=== PATIENT | male | born 1945 | race Caucasian/White ===

== ENCOUNTER 2017-12-26 02:16 | Emergency (ER) | payer BC ==
[~2017-12-26] VITALS: Ht 188 cm; Wt 145.0 kg
[2017-12-26 02:17] VITALS: BP 164/83; PULSE 69; RESP 16; TEMP 97.5; O2SAT 95
[2017-12-26] MEDS ORDERED: MORPHINE SULFATE 8 MG/ML INJ IV PUSH ONE (03:00)
[2017-12-26] MEDS: LORazepam 2 MG/ML VIAL IM ONE ×2 (03:00→03:14)
--- NOTE | 2017-12-26 03:10 | PD ---
HPI Chief Complaint: Back/ Neck Pain or Injury Time Seen by Provider: 02:25 Travel History International Travel<30 days: No Contact w/Intl Traveler<30days: No Traveled to known affect area: No History of Present Illness HPI 72-year-old white male presents to emergency Department with complaints of left lower back pain since earlier this afternoon. He states that he had no trauma. He gets back pain when he typically plays golf but it does improve with rest. Patient states the pain is moderate but can be more severe with movement. He has some radiation from his left flank into his buttocks. He got into the hot tub earlier today with some temporary improvement. He denies any fever or chills. No nausea vomiting. No abdominal pain. No dysuria, frequency or hematuria. PFSH Past Medical History Narrative Medical Chronic A. fib, hypertension, diabetes, enlarged prostate Atrial Fibrillation: Yes High Cholesterol: Yes Diabetes: Yes Patient Takes Glucophage: Yes Hypertension: Yes Tetanus Vaccination: < 5 Years Past Surgical History Narrative Surgical Bilateral total knees, right knee revision Joint Replacement: Yes (BILAT KNEES) Social History Alcohol Use: No Tobacco Use: No Substance Use: No Allergies-Medications (Allergen,Severity, Reaction): Coded Allergies: No Known Allergies (Unverified , 12/26/17) Reported Meds & Prescriptions Reported Meds & Active Scripts Active Flexeril (Cyclobenzaprine HCl) 10 Mg Tab 10 Mg PO TID [place] (Hydrocodone-Acetaminophen) 5 Mg-325 Mg Tab 1 Tab PO Q4H PRN Review of Systems General / Constitutional: No: Fever Eyes: No: Visual changes HENT: No: Headaches Cardiovascular: No: Chest Pain or Discomfort Respiratory: No: Shortness of Breath Gastrointestinal: No: Abdominal Pain Genitourinary: No: Dysuria Musculoskeletal: Positive: Arthralgias, Limited ROM, Cramping, Pain Skin: No Rash Neurologic: No: Weakness Psychiatric: No: Depression Endocrine: No: Polydipsia Hematologic/Lymphatic: No: Easy Bruising Physical Exam Narrative GENERAL: Well-developed, well-nourished in no apparent distress. Nontoxic appearing. HEAD: Normocephalic, atraumatic. EYES: Pupils equal round and reactive. Extraocular motions intact. No scleral icterus. No injection or drainage. ENT: Nose clear. Throat without erythema, tonsillar hypertrophy or exudate. Uvula midline. Airway patent. NECK: Trachea midline. Supple, nontender, moves head freely. No central bony tenderness or spasm. CARDIOVASCULAR: Regular rate and rhythm without murmurs, gallops, or rubs. RESPIRATORY: Clear to auscultation. Breath sounds equal bilaterally. No wheezes , rales, or rhonchi. GASTROINTESTINAL: Abdomen soft, obese, non-tender,.. No hepato-splenomegaly, or palpable masses. No guarding. EXTREMITIES: No clubbing, cyanosis, or edema. No joint tenderness. BACK: Nontender without deformity. No flank tenderness. Patient has tenderness to the left flank. Worse with bending and movement. No gross spasm. He has intact sensation with good distal pulses. No saddle anesthesia. Moves slowly due to pain. NEUROLOGICAL: Awake, alert and oriented x 3 .Cranial nerves grossly intact. Motor and sensory grossly within normal limits. Normal speech. Data Data Last Documented VS Vital Signs Date Time Temp Pulse Resp B/P (MAP) Pulse Ox O2 Delivery O2 Flow Rate FiO2 12/26/17 02:17 97.5 69 16 164/83 (110) 95 Room Air Orders Orders Spine, Lumbar - Ltd (Ap & Lat) (12/26/17 02:46) Morphine Inj (Morphine Inj) (12/26/17 03:00) Lorazepam Inj (Ativan Inj) (12/26/17 03:00) [facility] Medical Decision Making Medical Screen Exam Complete: Yes Emergency Medical Condition: Yes Medical Record Reviewed: Yes Interpretation(s) Lumbar spine: Patient has significant advanced arthritic changes with disc dehydration . No acute fracture. Arthritic subluxation. This is chronic in nature. Differential Diagnosis MDM: High Differential diagnoses: AAA,Fracture, sprain, strain, HNP, nerve or vascular injury, epidural abscess, pilonidal cyst, pyelonephritis, UTI, nephrolithiasis, ureterolithiasis Narrative Course Patient is given morphine 8 mg IM and 1 mg of Ativan IM. This is acute back pain, degenerative disc disease Diagnosis Primary Impression: Acute back pain Qualified Codes: M54.5 - Low back pain Additional Impression: Degenerative disc disease, lumbar Patient Instructions: Narcotic given in the ED, General Instructions Additional Instructions: Rest. Ice for the next 3 days followed by heat . Flexeril and hydrocodone. Follow-up with a primary care doctor in 3-5 days. Return to the ER for emergencies. Med/Other Pt SpecificInfo: Prescription(s) given Scripts Cyclobenzaprine (Flexeril) 10 Mg Tab 10 MG PO TID for Muscle Spasm, #30 TAB 0 Refills Prov: Naty Cooley MD 12/26/17 Hydrocodone-Acetaminophen ([place]) 5 Mg-325 Mg Tab 1 TAB PO Q4H Y for PAIN, #20 TAB 0 Refills Prov: Naty Cooley MD 12/26/17 Disposition: 01 DISCHARGE HOME Condition: Lucio Arambula Dec 26, 2017 03:09
[2017-12-26] MEDS ORDERED: CYCL10TA PO (03:11)
[2017-12-26] MEDS ORDERED: NORC5TAB PO (03:11)
--- NOTE | 2017-12-26 03:13 | RADRPT ---
EXAM DATE/TIME: 12/26/2017 03:01 [facility] COMPARISON: No previous studies available for comparison. INDICATIONS : Back pain, in lower portion of back no known injury. MEDICAL HISTORY : None. SURGICAL HISTORY : None. ENCOUNTER: Initial ACUITY: 1 day PAIN SCORE: 7/10 LOCATION: Bilateral back FINDINGS: There is a minimal grade 1 anterolisthesis of L4 on L5 and minimal retrolisthesis of L2 on L3 on L4. These are degenerative in nature and associated with severe facet arthropathy. No acute fracture. No bony destructive change. CONCLUSION: 1. Advanced degenerative disc disease and facet arthropathy as above. No acute fracture. Lucio Driscoll MD on December 26, 2017 at 3:09 Board Certified Radiologist. This report was verified electronically.
== END 2017-12-26 04:06 | disposition home or self-care (01) ==
LOC: NEPD 02:16
DX: M54.5 Low back pain (principal); M51.36 Other intervertebral disc degeneration, lumbar region; E11.9 Type 2 diabetes mellitus without complications; I10 Essential (primary) hypertension; I48.2 Chronic atrial fibrillation; E78.00 Pure hypercholesterolemia, unspecified
CPT/HCPCS: 72100; 96374; 99284; J2270; J2060

== ENCOUNTER 2018-02-24 20:38 | Inpatient (IN) | payer MEDICARE ==
[~2018-02-24] VITALS: Ht 188 cm; Wt 137.2 kg
[~2018-02-24 20:38] MED LIST: CYCL10TA PO; NORC5TAB PO
[2018-02-24 21:01] VITALS: BP 176/79; PULSE 147; RESP 18; TEMP 103.3; O2SAT 94
[2018-02-24] MEDS ORDERED: VANCOMYCIN INJ 1,000 MG in SODIUM CHLOR 0.9% 250 ML INJ 250 ML IV STA (21:04)
[2018-02-24] MEDS ORDERED: SODIUM CHLOR 0.9% 1000 ML INJ 1,000 ML IV ONE ×4 (21:04→23:49)
[2018-02-24] MEDS ORDERED: SODIUM CHLOR 0.9% 1000 ML INJ 100 ML IV ONE ×2 (21:04→23:49)
[2018-02-24] MEDS ORDERED: CEFEPIME INJ 2,000 MG in SODIUM CHLORIDE 0.9% INJ 100 ML IV STA (21:04)
--- NOTE | 2018-02-24 21:08 | PD ---
HPI Chief Complaint: Fever Time Seen by Provider: 20:59 Travel History International Travel<30 days: No Contact w/Intl Traveler<30days: No Traveled to known affect area: No History of Present Illness HPI 72-year-old male with history of A. fib, hypertension, diabetes, presents emergency department for evaluation of altered mental status and fever. Patient has no complaints however he is a poor historian. He appears mildly lethargic. His states 2 days ago he began with a back pain and nausea with vomiting. He developed a fever. T-max at home was 140. He has not been acting himself since. Patient has not had a bowel movement in 3 days per his . He has had 2 episodes of hematuria 5 days ago. He has had no cough or chest congestion. There are no other symptoms to report at this time. [facility] Past Medical History Atrial Fibrillation: Yes High Cholesterol: Yes Diabetes: Yes Hypertension: Yes Past Surgical History Joint Replacement: Yes (BILAT KNEES) Social History Alcohol Use: No Tobacco Use: No Substance Use: No Allergies-Medications (Allergen,Severity, Reaction): Coded Allergies: No Known Allergies (Unverified , 12/26/17) Reported Meds & Prescriptions Reported Meds & Active Scripts Active Flexeril (Cyclobenzaprine HCl) 10 Mg Tab 10 Mg PO TID [place] (Hydrocodone-Acetaminophen) 5 Mg-325 Mg Tab 1 Tab PO Q4H PRN Reported Rapaflo (Silodosin) 8 Mg Cap 8 Mg PO DAILY Simvastatin 40 Mg Tab 40 Mg PO HS Amlodipine (Amlodipine Besylate) 2.5 Mg Tab 2.5 Mg PO DAILY Metformin (Metformin HCl) 500 Mg Tab 500 Mg PO BIDPC Vesicare (Solifenacin) 10 Mg Tab 10 Mg PO DAILY Losartan (Losartan Potassium) 50 Mg Tab 50 Mg PO BID Metoprolol Succinate/HCTZ 100-12.5 ER 100 Mg-12.5 Mg Tab 1 Tab PO DAILY Warfarin 10 Mg Tab 10 Mg PO DAILY Review of Systems ROS Limitations: Poor Historian Except as stated in HPI: all other systems reviewed are Neg Physical Exam Narrative GENERAL: Well-nourished male patient, lying in bed, appears in no acute distress. SKIN: Focused skin assessment warm/dry. HEAD: Atraumatic. Normocephalic. EYES: Pupils equal and round. No scleral icterus. No injection or drainage. ENT: No nasal bleeding or discharge. Mucous membranes pink and moist. NECK: Trachea midline. No JVD. CARDIOVASCULAR: Tachycardic rate RESPIRATORY: No accessory muscle use. Shallow respirations, diminished bilateral bases otherwise clear to auscultation. Breath sounds equal bilaterally. GASTROINTESTINAL: Abdomen rotund soft, non-tender, nondistended. Hepatic and splenic margins not palpable. MUSCULOSKELETAL: No obvious deformities. No clubbing. No cyanosis. No edema. NEUROLOGICAL: Lethargic but arousable to awake. No obvious cranial nerve deficits. Motor grossly within normal limits. Normal speech. PSYCHIATRIC: Appropriate mood and affect; insight and judgment normal. Data Data Last Documented VS Vital Signs Date Time Temp Pulse Resp B/P (MAP) Pulse Ox O2 Delivery O2 Flow Rate FiO2 02/24/18 21:12 95 Partial Rebreather 15.00 02/24/18 21:12 22 02/24/18 21:05 147 02/24/18 21:01 103.3 176/79 (111) Orders Orders Sepsis Workup Initiated (02/24/18 ) Electrocardiogram (02/24/18 21:04) Complete Blood Count With Diff (02/24/18 21:04) Comprehensive Metabolic Panel (02/24/18 21:04) Prothrombin Time / Inr (Pt) (02/24/18 21:04) Act Partial Throm Time (Ptt) (02/24/18 21:04) Lactic Acid Sepsis Protocol (02/24/18 21:04) Urinalysis - C+S If Indicated (02/24/18 21:04) Influenzae A/B Antigen (02/24/18 21:04) Blood Culture (02/24/18 21:04) Chest, Single Ap (02/24/18 21:04) Blood Glucose (02/24/18 21:04) Ecg Monitoring (02/24/18 21:04) Iv Access Insert/Monitor (02/24/18 21:04) Oximetry (02/24/18 21:04) Oxygen Administration (02/24/18 21:04) Vancomycin Inj (Vancomycin Inj) (02/24/18 21:04) Cefepime Inj (Maxipime Inj) (02/24/18 21:04) Sodium Chlor 0.9% 1000 Ml Inj (Ns 1000 M (02/24/18 21:04) Sodium Chlor 0.9% 1000 Ml Inj (Ns 1000 M (02/24/18 21:04) Sodium Chlor 0.9% 1000 Ml Inj (Ns 1000 M (02/24/18 21:04) Acetaminophen Supp (Tylenol Supp) (02/24/18 21:15) Acetaminophen 1000 Mg/100 Ml (Ofirmev 10 (02/24/18 21:15) Insert Temp Sensing [place] Cath (02/24/18 21:48) Ct Abd/Pel W/O Iv Contrast (02/24/18 ) Ct Thorax/ Chest Wo Iv Contras (02/24/18 ) Metoprolol Tartrate Inj (Lopressor Inj) (02/24/18 22:45) Labs Laboratory Tests Test 02/24/18 21:05 White Blood Count 11.1 TH/MM3 Red Blood Count 5.12 MIL/MM3 Hemoglobin 14.4 GM/DL Hematocrit 43.8 % Mean Corpuscular Volume 85.6 FL Mean Corpuscular Hemoglobin 28.2 PG Mean Corpuscular Hemoglobin Concent 32.9 % Red Cell Distribution Width 14.7 % Platelet Count 151 TH/MM3 Mean Platelet Volume 10.6 FL Neutrophils (%) (Auto) 93.8 % Lymphocytes (%) (Auto) 2.2 % Monocytes (%) (Auto) 3.9 % Eosinophils (%) (Auto) 0.0 % Basophils (%) (Auto) 0.1 % Neutrophils # (Auto) 10.4 TH/MM3 Lymphocytes # (Auto) 0.2 TH/MM3 Monocytes # (Auto) 0.4 TH/MM3 Eosinophils # (Auto) 0.0 TH/MM3 Basophils # (Auto) 0.0 TH/MM3 CBC Comment DIFF FINAL Differential Comment Prothrombin Time 42.8 SEC Prothromb Time International Ratio 4.3 RATIO Activated Partial Thromboplast Time 45.5 SEC Urine Color YELLOW Urine Turbidity HAZY Urine pH 5.5 Urine Specific [place] 1.027 Urine Protein 30 mg/dL Urine Glucose (UA) NEG mg/dL Urine Ketones NEG mg/dL Urine Occult Blood TRACE Urine Nitrite NEG Urine Bilirubin NEG Urine Urobilinogen LESS THAN 2.0 MG/DL Urine Leukocyte Esterase NEG Urine RBC 6 /hpf Urine WBC 1 /hpf Urine Hyaline Casts 3 /lpf Urine Mucus FEW /lpf Microscopic Urinalysis Comment CATH-CULT NOT IND Blood Urea Nitrogen 35 MG/DL Creatinine 2.84 MG/DL Random Glucose 203 MG/DL Total Protein 7.2 GM/DL Albumin 2.9 GM/DL Calcium Level 8.4 MG/DL Alkaline Phosphatase 63 U/L Aspartate Amino Transf (AST/SGOT) 23 U/L Alanine Aminotransferase (ALT/SGPT) 24 U/L Total Bilirubin 1.1 MG/DL Sodium Level 140 MEQ/L Potassium Level 3.7 MEQ/L Chloride Level 105 MEQ/L Carbon Dioxide Level 27.2 MEQ/L Anion Gap 8 MEQ/L Estimat Glomerular Filtration Rate 22 ML/MIN Lactic Acid Level 2.7 mmol/L [facility] Medical Decision Making Medical Screen Exam Complete: Yes Emergency Medical Condition: Yes Medical Record Reviewed: Yes Differential Diagnosis Sepsis versus UTI versus pneumonia versus colitis versus bacteremia Narrative Course 72-year-old male presents emergency department for evaluation. Patient appears to not feel well but without distress. He is tachycardic and febrile. He has rotund abdomen but this is soft and nontender. Sepsis protocol was initiated. Patient is given cefepime and Zosyn. Laboratory Tests Test 02/24/18 21:05 White Blood Count 11.1 TH/MM3 Red Blood Count 5.12 MIL/MM3 Hemoglobin 14.4 GM/DL Hematocrit 43.8 % Mean Corpuscular Volume 85.6 FL Mean Corpuscular Hemoglobin 28.2 PG Mean Corpuscular Hemoglobin Concent 32.9 % Red Cell Distribution Width 14.7 % Platelet Count 151 TH/MM3 Mean Platelet Volume 10.6 FL Neutrophils (%) (Auto) 93.8 % Lymphocytes (%) (Auto) 2.2 % Monocytes (%) (Auto) 3.9 % Eosinophils (%) (Auto) 0.0 % Basophils (%) (Auto) 0.1 % Neutrophils # (Auto) 10.4 TH/MM3 Lymphocytes # (Auto) 0.2 TH/MM3 Monocytes # (Auto) 0.4 TH/MM3 Eosinophils # (Auto) 0.0 TH/MM3 Basophils # (Auto) 0.0 TH/MM3 CBC Comment DIFF FINAL Differential Comment Prothrombin Time 42.8 SEC Prothromb Time International Ratio 4.3 RATIO Activated Partial Thromboplast Time 45.5 SEC Urine Color YELLOW Urine Turbidity HAZY Urine pH 5.5 Urine Specific [place] 1.027 Urine Protein 30 mg/dL Urine Glucose (UA) NEG mg/dL Urine Ketones NEG mg/dL Urine Occult Blood TRACE Urine Nitrite NEG Urine Bilirubin NEG Urine Urobilinogen LESS THAN 2.0 MG/DL Urine Leukocyte Esterase NEG Urine RBC 6 /hpf Urine WBC 1 /hpf Urine Hyaline Casts 3 /lpf Urine Mucus FEW /lpf Microscopic Urinalysis Comment CATH-CULT NOT IND Blood Urea Nitrogen 35 MG/DL Creatinine 2.84 MG/DL Random Glucose 203 MG/DL Total Protein 7.2 GM/DL Albumin 2.9 GM/DL Calcium Level 8.4 MG/DL Alkaline Phosphatase 63 U/L Aspartate Amino Transf (AST/SGOT) 23 U/L Alanine Aminotransferase (ALT/SGPT) 24 U/L Total Bilirubin 1.1 MG/DL Sodium Level 140 MEQ/L Potassium Level 3.7 MEQ/L Chloride Level 105 MEQ/L Carbon Dioxide Level 27.2 MEQ/L Anion Gap 8 MEQ/L Estimat Glomerular Filtration Rate 22 ML/MIN Lactic Acid Level 2.7 mmol/L CBC is without acute concern. CMP is with a BUN of 35, creatinine 2.4 and GFR 22. Lactic acid 2.7. Influenza is negative. CT imaging is changed to without IV contrast due to renal function. Patient signed out to my attending physician who will follow up on scans and disposition appropriately. Sepsis Criteria SIRS Criteria (2 or more): Temp > 100.9 or < 96.8, Heart rate over 90 Condition: Stable Connie Randall Feb 24, 2018 21:08
[2018-02-24 21:12] VITALS: RESP 22; O2SAT 95
[2018-02-24] MEDS ORDERED: ACETAMINOPHEN 650 MG SUPP RECTAL ONE (21:15)
[2018-02-24] MEDS ORDERED: ACETAMINOPHEN 1000 MG/100 ML 65 ML IV ONE (21:15)
[2018-02-24] MEDS ORDERED: SIMV40TA PO (21:17)
[2018-02-24] MEDS ORDERED: AMLO2.5T PO (21:17)
[2018-02-24] MEDS ORDERED: VESI10TA2 PO (21:17)
[2018-02-24] MEDS ORDERED: LOSA50TA PO (21:17)
[2018-02-24] MEDS ORDERED: METF500T PO (21:17)
[2018-02-24] MEDS ORDERED: RAPA8CAP PO (21:17)
[2018-02-24] MEDS ORDERED: WARF-22 PO (21:17)
[2018-02-24] MEDS ORDERED: METO-489 PO (21:17)
[2018-02-24 21:54] LABS: AUTOMATED NEUTROPHIL # 10.4 TH/MM3 (1.8-7.7); BASOPHIL % 0.1 % (0.0-2.0); HEMATOCRIT 43.8 % (39.0-51.0); HEMOGLOBIN 14.4 GM/DL (13.0-17.0); LYMPH % 2.2 % (9.0-44.0); LYMPHOCYTE # 0.2 TH/MM3 (1.0-4.8); MEAN CELL VOLUME 85.6 FL (80.0-100.0); MEAN CORPUSCULAR HEMOGLOBIN 28.2 PG (27.0-34.0); MEAN CORPUSCULAR HGB CONC 32.9 % (32.0-36.0); MEAN PLATELET VOLUME 10.6 FL (7.0-11.0); MONO % 3.9 % (0.0-8.0); MONOCYTE # 0.4 TH/MM3 (0-0.9); NEUT % 93.8 % (16.0-70.0); PLATELET COUNT 151 TH/MM3 (150-450); RED BLOOD COUNT 5.12 MIL/MM3 (4.50-5.90); RED CELL DISTRIBUTION WIDTH 14.7 % (11.6-17.2); WHITE BLOOD COUNT 11.1 TH/MM3 (4.0-11.0)
[2018-02-24 22:04] LABS: BILIRUBIN, URINE NEG (NEG); BLOOD, URINE TRACE (NEG); GLUCOSE,URINE NEG (NEG); HYALINE CAST, URINE 3 /lpf (RARE); KETONE, URINE NEG (NEG); MUCUS URINE FEW /lpf (OCC); NITRITE,URINE NEG (NEG); PH, URINE 5.5 (5.0-8.5); URINE COLOR YELLOW (YELLW/STRAW); URINE LEUKOCYTE ESTERASE NEG (NEG)
--- NOTE | 2018-02-24 22:07 | RADRPT ---
EXAM DATE/TIME: 02/24/2018 21:44 [facility] COMPARISON: No previous studies available for comparison. INDICATIONS : Shortness of breath. MEDICAL HISTORY : None. SURGICAL HISTORY : None. ENCOUNTER: Initial ACUITY: 1 day PAIN SCORE: 0/10 LOCATION: Bilateral chest FINDINGS: The heart size is enlarged. Lungs are grossly clear. Significant effusions are not seen. The patient is rotated towards the right. CONCLUSION: Cardiomegaly. Ajit Booker MD on February 24, 2018 at 22:04 Board Certified Radiologist. This report was verified electronically.
[2018-02-24 22:15] LABS: ALBUMIN 2.9 GM/DL (3.4-5.0); AST (GOT) 23 U/L (15-37); BICARBONATE 27.2 MEQ/L (21.0-32.0); BLOOD UREA NITROGEN 35 MG/DL (7-18); CALCIUM 8.4 MG/DL (8.5-10.1); CHLORIDE 105 MEQ/L (98-107); CREATININE 2.84 MG/DL (0.60-1.30); GLOMERULAR FILTRATION RATE 22 ML/MIN (>89); GLUCOSE,RANDOM 203 MG/DL (74-106); SODIUM (NA) 140 MEQ/L (136-145)
[2018-02-24 22:16] LABS: ALT (GPT) 24 U/L (12-78)
[2018-02-24 22:18] LABS: LACTIC ACID SEPSIS PROTOCOL 2.7 mmol/L (0.4-2.0)
[2018-02-24 22:19] LABS: ALKALINE PHOSPHATASE 63 U/L (45-117); TOTAL BILIRUBIN ADULT 1.1 MG/DL (0.2-1.0); TOTAL PROTEIN 7.2 GM/DL (6.4-8.2)
[2018-02-24 22:21] LABS: INTERNATIONAL NORMALIZED RATIO 4.3 RATIO; PROTHROMBIN TIME - PATIENT 42.8 SEC (9.8-11.6)
[2018-02-24] MEDS ORDERED: METOPROLOL TARTRATE 5 MG/5 ML VIAL IV PUSH ONE (22:45)
--- NOTE | 2018-02-24 23:00 | RADRPT ---
EXAM DATE/TIME: 02/24/2018 22:45 [facility] COMPARISON: No previous studies available for comparison. INDICATIONS : Short of breath. RADIATION DOSE: 13.64 CTDIvol (mGy) ; Combined studies - Thorax/Abdomen/Pelvis MEDICAL HISTORY : Hypertension. Diabetes mellitus type 2. SURGICAL HISTORY : None. ENCOUNTER: Initial ACUITY: 1 day PAIN SCALE: 0/10 LOCATION: chest TECHNIQUE: Volumetric scanning of the chest was performed. Using automated exposure control and adjustment of t he mA and/or kV according to patient size, radiation dose was kept as low as reasonably achievable to obtain optimal diagnostic quality images. DICOM format image data is available electronically for r eview and comparison. Follow-up recommendations for detected pulmonary nodules are based at a minimum on nodule size and pa tient risk factors according to Fleischner Society Guidelines. 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 No visible pneumothorax or significant infiltrate PLEURAE: There is no pleural thickening or pleural effusion. MEDIASTINUM: The heart and great vessels demonstrate no acute abnormality. There is no mediastinal or hilar lymph adenopathy. AXILLAE: Within normal limits. No lymphadenopathy. MUSCULOSKELETAL: Within normal limits for patient age. MISCELLANEOUS: The visualized upper abdominal organs demonstrate no acute abnormality. CONCLUSION: Atelectasis both lung bases. No visible pneumothorax. Large left substernal goiter. Thomas Carter MD on February 24, 2018 at 22:55 Board Certified Radiologist. This report was verified electronically.
--- NOTE | 2018-02-24 23:04 | RADRPT ---
EXAM DATE/TIME: 02/24/2018 22:45 [facility] COMPARISON: No previous studies available for comparison. INDICATIONS : Abdominal pain with nausea. ORAL CONTRAST: No oral contrast ingested. RADIATION DOSE: 13.64 CTDIvol (mGy) ; Combined studies - Thorax/Abdomen/Pelvis MEDICAL HISTORY : Hypertension. Diabetes mellitus type 2. SURGICAL HISTORY : None. ENCOUNTER: Initial ACUITY: 1 day PAIN SCALE: 5/10 LOCATION: abdomen TECHNIQUE: Volumetric scanning of the abdomen and pelvis was performed. Using automated exposure control and ad justment of the mA and/or kV according to patient size, radiation dose was kept as low as reasonably achievable to obtain optimal diagnostic quality images. DICOM format image data is available electro nically for review and comparison. FINDINGS: LOWER LUNGS: Mild atelectasis both lung bases LIVER: Homogeneous density without lesion. There is no dilation of the biliary tree. No calcified gallston es. SPLEEN: Normal size without lesion. PANCREAS: Within normal limits. KIDNEYS: There multiple cysts or a both kidneys. There is hydronephrosis of the right kidney with some perinep hric stranding. There is a 6 x 4 mm calcification the proximal right ureter. Its at the level of L3-4 disc space. ADRENAL GLANDS: Within normal limits. VASCULAR: There is no aortic aneurysm. BOWEL/MESENTERY: The stomach, small bowel, and colon demonstrate no acute abnormality. There is no free intraperitone al air or fluid. ABDOMINAL WALL: Within normal limits. RETROPERITONEUM: There is no lymphadenopathy. BLADDER: No wall thickening or mass. REPRODUCTIVE: Within normal limits. INGUINAL: There is no lymphadenopathy or hernia. MUSCULOSKELETAL: Within normal limits for patient age. CONCLUSION: Mild hydronephrosis of the right kidney with a 4 x 6 mm proximal ureteral stone. Multiple cysts throu ghout both kidneys. Thomas Carter MD on February 24, 2018 at 23:01 Board Certified Radiologist. This report was verified electronically.
[2018-02-24] MEDS ORDERED: DILTIAZEM HCL 25 MG/5 ML VIAL IV ONE (23:45)
[2018-02-24 23:47] VITALS: BP 151/70; PULSE 138; RESP 18; O2SAT 94
--- NOTE | 2018-02-24 23:49 | HHI.HP ---
[facility] Service Critical Care Medicine Primary Care Physician Tiarra Garcia MD Admission Diagnosis Obstructing stone septic and elevated creatinine Diagnosis: Travel History International Travel<30 Days: No Contact w/Intl Traveler <30 Da: No Traveled to Known Affected Are: No History of Present Illness 72-year-old male with history of A. fib, hypertension, diabetes, presents for evaluation of altered mental status and fever. Patient has no complaints however he is a poor historian. He appears mildly lethargic. His states 2 days ago he began with a back pain and nausea with vomiting. He developed a fever. T-max at home was 140. He has not been acting himself since. Patient has not had a bowel movement in 3 days per his . He has had 2 episodes of hematuria 5 days ago. He has had no cough or chest congestion. There are no other symptoms to report at this time. Review of Systems ROS Limitations: Altered Mental Status, Poor Historian Past Family Social History Allergies: Coded Allergies: No Known Allergies (Unverified , 12/26/17) Past Medical History Atrial Fibrillation: Yes High Cholesterol: Yes Diabetes: Yes Hypertension: Yes Past Surgical History Joint Replacement: Yes (BILAT KNEES) Reported Medications Reported Meds & Active Scripts Active Flexeril (Cyclobenzaprine HCl) 10 Mg Tab 10 Mg PO TID [place] (Hydrocodone-Acetaminophen) 5 Mg-325 Mg Tab 1 Tab PO Q4H PRN Reported Rapaflo (Silodosin) 8 Mg Cap 8 Mg PO DAILY Simvastatin 40 Mg Tab 40 Mg PO HS Amlodipine (Amlodipine Besylate) 2.5 Mg Tab 2.5 Mg PO DAILY Metformin (Metformin HCl) 500 Mg Tab 500 Mg PO BIDPC Vesicare (Solifenacin) 10 Mg Tab 10 Mg PO DAILY Losartan (Losartan Potassium) 50 Mg Tab 50 Mg PO BID Metoprolol Succinate/HCTZ 100-12.5 ER 100 Mg-12.5 Mg Tab 1 Tab PO DAILY Warfarin 10 Mg Tab 10 Mg PO DAILY Family History No family history significant of early coronary artery disease or malignancy Social History Alcohol Use: No Tobacco Use: No Substance Use: No Physical Exam Vital Signs Vital Signs Date Time Temp Pulse Resp B/P (MAP) Pulse Ox O2 Delivery O2 Flow Rate FiO2 02/24/18 23:47 138 18 151/70 (97) 94 Partial Rebreather 15.00 02/24/18 21:12 95 Partial Rebreather 15.00 02/24/18 21:12 22 95 Partial Rebreather 15.00 02/24/18 21:05 147 22 92 Nasal Cannula 2.00 02/24/18 21:01 103.3 147 18 176/79 (111) 94 Physical Exam GENERAL: Elderly gentleman in moderate distress SKIN: Warm and dry. HEAD: Normocephalic. EYES: No scleral icterus. No injection or drainage. NECK: Supple, trachea midline. No JVD or lymphadenopathy. CARDIOVASCULAR: Regular rate and rhythm without murmurs, gallops, or rubs. RESPIRATORY: Breath sounds equal bilaterally. No accessory muscle use. GASTROINTESTINAL: Abdomen soft, non-tender, nondistended. MUSCULOSKELETAL: No cyanosis, or edema. BACK: Nontender without obvious deformity. NEURO EXAM: GCS:14 Mental Status: The patient is alert and oriented to person, place, with normal speech. Cranial Nerves: Visual acuity intact bilaterally. Visual gagnon normal in all quadrants. Pupils are round, reactive to light. Extraocular movements are intact without ptosis. Hearing is normal bilaterally. Voice is normal. Tongue protrudes midline and moves symmetrically. Reflexes: Biceps, patellar, and Achilles are 2/4 bilaterally. No clonus. Laboratory Laboratory Tests Test 02/24/18 21:05 White Blood Count 11.1 Red Blood Count 5.12 Hemoglobin 14.4 Hematocrit 43.8 Mean Corpuscular Volume 85.6 Mean Corpuscular Hemoglobin 28.2 Mean Corpuscular Hemoglobin Concent 32.9 Red Cell Distribution Width 14.7 Platelet Count 151 Mean Platelet Volume 10.6 Neutrophils (%) (Auto) 93.8 Lymphocytes (%) (Auto) 2.2 Monocytes (%) (Auto) 3.9 Eosinophils (%) (Auto) 0.0 Basophils (%) (Auto) 0.1 Neutrophils # (Auto) 10.4 Lymphocytes # (Auto) 0.2 Monocytes # (Auto) 0.4 Eosinophils # (Auto) 0.0 Basophils # (Auto) 0.0 CBC Comment DIFF FINAL Differential Comment Prothrombin Time 42.8 Prothromb Time International Ratio 4.3 Activated Partial Thromboplast Time 45.5 Urine Color YELLOW Urine Turbidity HAZY Urine pH 5.5 Urine Specific [place] 1.027 Urine Protein 30 Urine Glucose (UA) NEG Urine Ketones NEG Urine Occult Blood TRACE Urine Nitrite NEG Urine Bilirubin NEG Urine Urobilinogen LESS THAN 2.0 Urine Leukocyte Esterase NEG Urine RBC 6 Urine WBC 1 Urine Hyaline Casts 3 Urine Mucus FEW Microscopic Urinalysis Comment CATH-CULT NOT IND Blood Urea Nitrogen 35 Creatinine 2.84 Random Glucose 203 Total Protein 7.2 Albumin 2.9 Calcium Level 8.4 Alkaline Phosphatase 63 Aspartate Amino Transf (AST/SGOT) 23 Alanine Aminotransferase (ALT/SGPT) 24 Total Bilirubin 1.1 Sodium Level 140 Potassium Level 3.7 Chloride Level 105 Carbon Dioxide Level 27.2 Anion Gap 8 Estimat Glomerular Filtration Rate 22 Lactic Acid Level 2.7 Date/Time Source Procedure Growth Status 02/24/18 21:00 Blood Peripheral Aerobic Blood Culture Pending Received 02/24/18 21:00 Blood Peripheral Anaerobic Blood Culture Pending Received 02/24/18 21:05 Nasal Washing Influenza Types A,B Antigen (JAIMIE) - Final NEGATIVE FOR FLU A AND B ANTIGEN.... Complete Result Diagram: 02/24/18210402/24/182104 Imaging Last 24 hours Impressions Chest X-Ray 02/24/182103 Signed Impressions: Service Date/Time: Saturday, February 24, 2018 21:44 - CONCLUSION: Cardiomegaly. Ajit Booker MD Capskylar VTE Risk Assessment Caprini VTE Risk Assessment: Mod/High Risk (score >= 2) Caprini Risk Assessment Model Point Value = 1 Point Value = 2 Point Value = 3 Point Value = 5 Age 41-60 Minor surgery BMI > 25 kg/m2 Swollen legs Varicose veins or History of unexplained or recurrent spontaneous Oral contraceptives or hormone replacement Sepsis (< 1 month) Serious lung disease, including pneumonia (< 1 month) Abnormal pulmonary function Acute myocardial infarction Congestive heart failure (< 1 month) History of inflammatory bowel disease Medical patient at bed rest Age 61-74 Arthroscopic surgery Major open surgery (> 45 min) Laparoscopic surgery (> 45 min) Malignancy Confined to bed (> 72 hours) Immobilizing plaster cast Central venous access Age >= 75 History of VTE Family history of VTE Factor V Leiden Prothrombin [id number] Lupus anticoagulant Anticardiolipin antibodies Elevated serum homocysteine Heparin-induced thrombocytopenia Other congenital or acquired thrombophilia Stroke (< 1 month) Elective arthroplasty Hip, pelvis, or leg fracture Acute spinal cord injury (< 1 month) Prophylaxis Regimen Total Risk Factor Score Risk Level Prophylaxis Regimen 0-1 Low Early ambulation 2 Moderate Order ONE of the following: *Sequential Compression Device (SCD) *Heparin 5000 units SQ BID 3-4 Higher Order ONE of the following medications: *Heparin 5000 units SQ TID *Enoxaparin/Lovenox 40 mg SQ daily (WT < 150 kg, CrCl > 30 mL/min) *Enoxaparin/Lovenox 30 mg SQ daily (WT < 150 kg, CrCl > 10-29 mL/min) *Enoxaparin/Lovenox 30 mg SQ BID (WT < 150 kg, CrCl > 30 mL/min) AND/OR *Sequential Compression Device (SCD) 5 or more Highest Order ONE of the following medications: *Heparin 5000 units SQ TID (Preferred with Epidurals) *Enoxaparin/Lovenox 40 mg SQ daily (WT < 150 kg, CrCl > 30 mL/min) *Enoxaparin/Lovenox 30 mg SQ daily (WT < 150 kg, CrCl > 10-29 mL/min) *Enoxaparin/Lovenox 30 mg SQ BID (WT < 150 kg, CrCl > 30 mL/min) AND *Sequential Compression Device (SCD) Assessment and Plan Assessment and Plan Obstructive hydronephrosis -Aggressive IV fluid hydration -Urology consultation -Broad-spectrum antibiotic -Blood culture and urine culture Urosepsis -Admit to ICU -Vancomycin and cefepime empirically -Follow-up and de-escalate per culture sensitivity Diabetes mellitus -Hold metformin while in the ICU -Insulin sliding Acute kidney injury -Due to above -Aggressive IV fluid hydration -Strict I's and O -Monitor creatinine and electrolyte Atrial fibrillation -Hold beta-nina due to septic shock -Hold Coumadin for urological procedure -Resume when okay with surgeon DVT GI prophylaxis -Augie's and SCDs -Pharmacological DVT prophylaxis based on PT/INR -Pepcid Critical Care: The total critical care time was 35 minutes. Time to perform other separately billable procedures was not included in the critical care time. Julio Nation MD Feb 24, 2018 23:49
[2018-02-24 23:58] VITALS: BP 110/64; PULSE 140; RESP 26; O2SAT 92
[2018-02-25] VITALS (26 sets, daily range): BP systolic 87–154; BP diastolic 50–84; PULSE 90–156; RESP 16–41; TEMP 97.8–98.9; O2SAT 87–96
[2018-02-25] MEDS ORDERED: CHLORHEXIDINE GLUCONATE 2 % 1 PACK (2 CLOTHS) TOP PRN
[2018-02-25] MEDS ORDERED: ONDANSETRON HCL 4 MG/2 ML VIAL IV PUSH PRN
[2018-02-25] MEDS ORDERED: SENNOSIDES 8.6 MG TAB PO PRN
[2018-02-25] MEDS ORDERED: MISCELLANEOUS NURSING INFORMATION XX SCH
[2018-02-25] MEDS ORDERED: BISACODYL 10 MG SUPP RECTAL PRN
[2018-02-25] MEDS ORDERED: MORPHINE SULFATE 4 MG/ML INJ IV PUSH PRN
[2018-02-25] MEDS ORDERED: Vancomycin Consult Pharmacy 1 EA OTHER SCH
[2018-02-25] MEDS ORDERED: MAGNESIUM HYDROXIDE SUSP 30 ML CUP PO PRN
[2018-02-25] MEDS ORDERED: LACTULOSE SYRUP 20 GM/30 ML CUP PO PRN
[2018-02-25] MEDS ORDERED: RESP: ALBUTEROL 2.5 MG/IPRATROPIUM 0.5 MG NEB (PRN) INH
[2018-02-25] MEDS ORDERED: DEXTROSE 50% IN WATER 50 ML VIAL(D50) IV PUSH PRN (00:30)
[2018-02-25] MEDS ORDERED: METOPROLOL SUCCINATE 25 MG EXTENDED RELEASE TAB PO ONE (00:30)
[2018-02-25] MEDS ORDERED: GLUCAGON 1 MG/ML VIAL OTHER PRN (00:30)
[2018-02-25] MEDS: SODIUM CHLOR 0.9% 1000 ML INJ 1,000 ML IV SCH ×4 (01:03→20:34)
[2018-02-25 03:13] LABS: AUTOMATED NEUTROPHIL # 21.6 TH/MM3 (1.8-7.7); BASOPHIL % 0.1 % (0.0-2.0); HEMOGLOBIN 12.3 GM/DL (13.0-17.0); LYMPH % 2.6 % (9.0-44.0); LYMPHOCYTE # 0.6 TH/MM3 (1.0-4.8); MEAN CELL VOLUME 86.2 FL (80.0-100.0); MEAN CORPUSCULAR HEMOGLOBIN 28.7 PG (27.0-34.0); MEAN CORPUSCULAR HGB CONC 33.3 % (32.0-36.0); MEAN PLATELET VOLUME 10.6 FL (7.0-11.0); MONO % 7.2 % (0.0-8.0); MONOCYTE # 1.7 TH/MM3 (0-0.9); NEUT % 90.1 % (16.0-70.0); PLATELET COUNT 145 TH/MM3 (150-450); RED CELL DISTRIBUTION WIDTH 14.4 % (11.6-17.2)
[2018-02-25 03:27] LABS: INTERNATIONAL NORMALIZED RATIO 4.6 RATIO; PROTHROMBIN TIME - PATIENT 46.1 SEC (9.8-11.6)
[2018-02-25 03:41] LABS: ALBUMIN 2.3 GM/DL (3.4-5.0); BICARBONATE 22.7 MEQ/L (21.0-32.0); CALCIUM 7.2 MG/DL (8.5-10.1); CREATININE 2.51 MG/DL (0.60-1.30); MAGNESIUM 1.7 MG/DL (1.5-2.5); PHOSPHORUS 2.5 MG/DL (2.5-4.9); TOTAL BILIRUBIN ADULT 0.9 MG/DL (0.2-1.0); TOTAL PROTEIN 5.6 GM/DL (6.4-8.2)
[2018-02-25] MEDS: CHLORHEXIDINE GLUCONATE 2 % 1 PACK (2 CLOTHS) TOP SCH (04:00)
[2018-02-25] MEDS: INSULIN ASPART SUPPLEMENTAL SCALE SQ SCH ×4 (08:00→20:38)
[2018-02-25] MEDS: FAMOTIDINE 20 MG/2 ML VIAL IV PUSH SCH ×2 (09:00→20:34)
[2018-02-25] MEDS: CYCLOBENZAPRINE HCL 10 MG TAB PO SCH ×3 (10:28→18:00)
[2018-02-25] MEDS: DOCUSATE SODIUM 50 MG/SENNA 8.6 MG TAB PO SCH ×2 (10:28→20:34)
[2018-02-25] MEDS: CEFEPIME INJ 2,000 MG in SODIUM CHLORIDE 0.9% INJ 100 ML IV SCH ×2 (10:29→20:34)
[2018-02-25] MEDS: SODIUM CHLORIDE 0.9% FLUSH 10 ML FLUSH IV FLUSH SCH ×2 (10:29→20:35)
--- NOTE | 2018-02-25 10:41 | MB ---
cc: Cliff South MD DATE: 02/25/2018 REASON FOR CONSULTATION: Persistent right flank pain and probable obstructing ureteral calculus. HISTORY OF PRESENT ILLNESS: This is a 72-year-old gentleman who for about a week has had flank discomfort at home. Evidently, according to him, his and daughter insisted that he finally come to the emergency room. He was having difficulty with nausea, increased fever, sweating, etc. at home. Urologically, he has a history of bladder carcinoma for which he has been followed closely by an urologist in [place]. He has had no history of stones, however. During the course of the workup here in the emergency room, he had a CAT scan which demonstrated a hydronephrosis proximal to about a 6 mm stone at, near or just below the right ureteropelvic junction. He also has some difficulty with some urgency and frequency for which he takes Rapaflo and VESIcare. Upon discussion with the gentleman, he is sitting upright in his chair at the moment and is comfortable. He has been started on appropriate antibiotics by the medical bill hiker. He is in the medical intensive care unit at the moment. PLAN: To go ahead and: 1. Keep him n.p.o. 2. I have marked his right flank for identification purposes. 3. We will proceed with a cystoscopic exam under anesthesia and insertion of a right double-J stent and then we will take the workup from there. He is due to go back to [place] toward the end of February. MD ZOLTAN Trimble/ANGEL , 10:09 AM , 10:40 AM
[2018-02-25] MEDS ORDERED: ACETAMINOPHEN 1000 MG/100 ML 100 ML IV ONE (11:28)
[2018-02-25] MEDS ORDERED: SUGAMMADEX SODIUM 200 MG/2 ML VIAL IV PUSH ONE (11:52)
[2018-02-25] MEDS ORDERED: GLYCOPYRROLATE 1 MG/5 ML SYRINGE IV PUSH ONE (12:00)
[2018-02-25] MEDS ORDERED: LIDOCAINE HCL 1% PF 5 ML SYRINGE OTHER ONE (12:00)
[2018-02-25] MEDS ORDERED: *RESP: ALBUTEROL 2.5 MG/3 ML NEB (PRN) PERIprocedural Use ONLY NEB ONE (12:00)
[2018-02-25] MEDS ORDERED: ROCURONIUM INJ 50 MG/5 ML SYRINGE IV PUSH ONE (12:00)
[2018-02-25] MEDS ORDERED: NEOSTIGMINE 5 MG/5 ML SYRINGE IV PUSH ONE (12:00)
[2018-02-25] MEDS ORDERED: PHENYLEPHRINE HCL 10 MG/ML VIAL IV ONE (12:00)
[2018-02-25] MEDS ORDERED: PROPOFOL 200 MG/20 ML AMP IV ONE (12:00)
[2018-02-25] MEDS ORDERED: LABETALOL HCL 100 MG/20 ML VIAL IV ONE (12:00)
[2018-02-25] MEDS ORDERED: DEXAMETHASONE SOD PHOS 4 MG/ML VIAL IV ONE (12:00)
[2018-02-25] MEDS ORDERED: ONDANSETRON HCL 4 MG/2 ML VIAL IV ONE (12:00)
[2018-02-25] MEDS ORDERED: DO NOT ADM ANY ANTICOAGULANT DRUGS PRN (12:05)
--- NOTE | 2018-02-25 12:13 | RADRPT ---
EXAM DATE/TIME: 02/25/2018 10:46 [facility] COMPARISON: CT ABDOMEN & PELVIS W/O CONTRAST, February 24, 2018, 22:45. INDICATIONS : Right sided ureteral stent placement. Patient with abdomen pain, mild hydronephrosis and small proxim al ureteral calculus seen on recent CT. MEDICAL HISTORY : None. SURGICAL HISTORY : None. ENCOUNTER: Initial ACUITY: 1 day PAIN SCORE: Non-responsive. LOCATION: Right Abdomen, Ureter FINDINGS: A single cone down view of the right side of the abdomen and pelvis was obtained using a matrix camer a and demonstrates placement of a double pigtail ureteral stent catheter. The lower portion of the st ent catheter was cut off the study. There is apparent visualization of the proximal ureteral calculus along the proximal stent catheter. This measures several millimeters in size. CONCLUSION: Placement of right pigtail stent catheter with the possible ureteral calculus along t he proximal catheter. Van Minor MD on February 25, 2018 at 12:09 Board Certified Radiologist. This report was verified electronically.
--- NOTE | 2018-02-25 12:20 | MP ---
cc: Cliff South MD DATE OF OPERATION: 02/25/2018 PREOPERATIVE DIAGNOSIS: Right ureteropelvic junction calculus with hydronephrosis. POSTOPERATIVE DIAGNOSIS: Right ureteropelvic junction calculus with hydronephrosis. PROCEDURE PERFORMED: Cystoscopy with right retrograde double-J stent placement, 6-Sol[place] Islander x 26 cm, under fluoroscopic control. SURGEON: Akosua Coronado MD ANESTHESIA: General. PROCEDURE IN DETAIL This 72-year-old gentleman is from [place]. He has been wintering over here in [place]. He has been putting up with right flank pain over the course of the week, was brought to the emergency room, noted to be showing signs and symptoms of impending sepsis secondary to an apparent impacted calculus at the right ureteropelvic junction that was about 6 mm. Options were discussed. Urology was consulted. Films were reviewed. The patient was examined and he was felt to be a suitable candidate for the above-mentioned procedure. I personally marked his right flank for identification purposes. He was then already on appropriate antibiotics for impending sepsis. He was brought to the operating room, given a general anesthetic, placed in the dorsal lithotomy position and a timeout taken for identification purposes again. He was then prepped and draped in a sterile fashion. A rigid scope was passed into his bladder. We see a good bit of bullous edema secondary to catheter wear while he has been here in the hospital. He does have a history of bladder carcinoma. I did not see any gross evidence of that, but it could be hiding beneath the bullous edema. In any event, the right ureteral orifice was identified and was not effluxing. A guidewire was placed under fluoroscopic control up into the right renal pelvis and then over this, a 6-[place] Islander x 26 cm double-J stent was advanced until we had good pigtail formation in the right renal pelvis and then a good pigtail formation in the bladder documented fluoroscopically. A Barron catheter was then reinserted. We will probably leave that overnight. He tolerated the procedure well and was returned to the recovery room in stable condition. MD ZOLTAN Trimble/ANGEL , 11:52 AM , 12:18 PM
--- NOTE | 2018-02-25 13:55 | EKG ---
Date Performed: 02/24/2018 Time Performed: 20:53:24 PTAGE: 72 years EKG: ATRIAL FIBRILLATION WITH RAPID VENTRICULAR RESPONSE LOW QRS VOLTAGE IN PRECORDIAL LEADS POS SIBLE ANTERIOR MYOCARDIAL INFARCTION INFERIOR MYOCARDIAL INFARCTION ABNORMAL ECG NO PREVIOUS TRACING DOCTOR: Sander Garcia Interpretating Date/Time 02/25/2018 13:53:18
--- NOTE | 2018-02-25 18:22 | HHI.CCPN ---
Subjective Remarks/Hospital Course Hospital Course: 72-year-old male with history of A. fib, hypertension, diabetes, presents for evaluation of altered mental status and fever. Patient has no complaints however he is a poor historian. He appears mildly lethargic. His states 2 days ago he began with a back pain and nausea with vomiting. He developed a fever. T-max at home was 140. He has not been acting himself since. Patient has not had a bowel movement in 3 days per his . He has had 2 episodes of hematuria 5 days ago. He has had no cough or chest congestion. There are no other symptoms to report at this time. Subjective: 02/25: s/p ureteral stents. blood and urine growing Enterococcus. clinically stabilizing. still remains afib RVR, but HR in the 130s and appears to need this HR for perfusion in sepsis. subjectively, the patient feels better than yesterday and denies complaints. states that he has not taken Flexeril in weeks and asks that we discontinue it. ROS negative. Objective Vital Signs Date Time Temp Pulse Resp B/P (MAP) Pulse Ox O2 Delivery O2 Flow Rate FiO2 02/25/18 17:00 117 38 105/64 (78) 90 02/25/18 16:00 98.9 02/25/18 12:25 Simple Mask 6 02/25/18 05:20 80 Intake and Output 02/25/18 02/25/18 02/25/18 07:59 15:59 23:59 Output Total 300 ml 50 ml Balance -300 ml -50 ml Result Diagram: 02/25/18 0300 02/25/18 0300 Other Results Microbiology Date/Time Source Procedure Growth Status 02/24/18 21:05 Nasal Washing Influenza Types A,B Antigen (JAIMIE) - Final NEGATIVE FOR FLU A AND B ANTIGEN.... Complete Imaging Last 24 hours Impressions Chest X-Ray 02/24/182103 Signed Impressions: Service Date/Time: Saturday, February 24, 2018 21:44 - CONCLUSION: Cardiomegaly. Ajit Booker MD Objective Remarks GENERAL: Elderly gentleman in no acute distress, lying in bed. SKIN: Warm and dry. HEAD: Normocephalic. EYES: No scleral icterus. No injection or drainage. NECK: trachea midline. No JVD CARDIOVASCULAR: tachycardic rate, irregularly irregular rhythm. afib. RESPIRATORY: equal chest rise. No accessory muscle use. unlabored. GASTROINTESTINAL: Abdomen soft, non-tender, nondistended. MUSCULOSKELETAL: No cyanosis, or edema. NEURO EXAM: GCS 15. RASS 0. CAM -. follows commands. no focal deficits. : urosanguinous output, clearing up in mendieta compared to initial bag contents. A/P Assessment and Plan Assessment: 72yM with severe sepsis secondary to obstructive urinary tract infection. Organ failure improving. continue broad spectrum abx and await sensitivities. keep in ICU. allow HR to be higher to maintain adequate cardiac output during sepsis. Obstructive hydronephrosis -Aggressive IV fluid hydration -additional 1L LR bolus now -Urology consultation -Broad-spectrum antibiotic -Blood culture and urine culture Severe sepsis Urinary tract infection -remain in ICU -Vancomycin and cefepime empirically -Follow-up and de-escalate per culture sensitivity Diabetes mellitus -Hold metformin while in the ICU -Insulin sliding scale Acute kidney injury -Due to above -Aggressive IV fluid hydration -Strict I's and O -Monitor creatinine and electrolyte Atrial fibrillation -Hold beta-nina due to septic shock -Hold Coumadin for urological procedure -Resume when okay with surgeon Coagulopathy secondary to coumadin with supratherapeutic INR - secondary to poor renal clearance. - trend coags DVT GI prophylaxis -Augie's and SCDs -Pharmacological DVT prophylaxis based on PT/INR -Thom Grande MD Feb 25, 2018 18:22
[2018-02-25] MEDS ORDERED: LACTATED RINGER'S 1000 ML INJ 1,000 ML IV ONE (18:30)
[2018-02-25] MEDS: PRAVASTATIN SOD 40 MG TAB PO SCH (20:35)
[2018-02-25] MEDS ORDERED: AMIODARONE INJ 150 MG in DEXTROSE 5% IN WATER 100ML INJ 100 ML IV ONE ×2 (22:24)
[2018-02-25] MEDS ORDERED: AMIODARONE INJ 450 MG in DEXTROSE 5% IN WATE(EXCEL) INJ 241 ML IV PRN ×2 (22:34)
[2018-02-25] MEDS ORDERED: AMIODARONE INJ 450 MG in SODIUM CHLOR 0.9% (EXCEL) INJ 241 ML IV PRN (22:45)
[2018-02-26] VITALS (26 sets, daily range): BP systolic 67–148; BP diastolic 47–94; PULSE 117–169; RESP 0–45; TEMP 98–98.7; O2SAT 83–97
[2018-02-26] MEDS: CHLORHEXIDINE GLUCONATE 2 % 1 PACK (2 CLOTHS) TOP SCH (04:00)
[2018-02-26 05:59] LABS: HEMATOCRIT 38.4 % (39.0-51.0); HEMOGLOBIN 12.7 GM/DL (13.0-17.0); MEAN CELL VOLUME 86.8 FL (80.0-100.0); MEAN CORPUSCULAR HEMOGLOBIN 28.7 PG (27.0-34.0); MEAN PLATELET VOLUME 11.2 FL (7.0-11.0); PLATELET COUNT 153 TH/MM3 (150-450); RED BLOOD COUNT 4.43 MIL/MM3 (4.50-5.90); WHITE BLOOD COUNT 14.8 TH/MM3 (4.0-11.0)
[2018-02-26 06:24] LABS: CREATININE 1.65 MG/DL (0.60-1.30)
[2018-02-26 06:27] LABS: RANDOM VANCOMYCIN 2.5 COMMENT
[2018-02-26] MEDS ORDERED: METOPROLOL TARTRATE 5 MG/5 ML VIAL IV PUSH ONE (07:45)
[2018-02-26] MEDS ORDERED: DIGOXIN 0.5 MG/2 ML VIAL IV PUSH ONE (08:00)
[2018-02-26] MEDS ORDERED: FUROSEMIDE 20 MG/2 ML VIAL IV PUSH ONE (08:00)
[2018-02-26] MEDS ORDERED: MAGNESIUM SULFATE 1 GM PREMIX 100 ML IV ONE (08:00)
[2018-02-26] MEDS: INSULIN ASPART SUPPLEMENTAL SCALE SQ SCH ×4 (08:00→21:00)
[2018-02-26] MEDS: SODIUM CHLOR 0.9% 1000 ML INJ 1,000 ML IV SCH (08:02)
--- NOTE | 2018-02-26 08:09 | HHI.CCPN ---
Subjective Remarks/Hospital Course Hospital Course: 72-year-old male with history of A. fib, hypertension, diabetes, presents for evaluation of altered mental status and fever. Patient has no complaints however he is a poor historian. He appears mildly lethargic. His states 2 days ago he began with a back pain and nausea with vomiting. He developed a fever. T-max at home was 104. He has not been acting himself since. Patient has not had a bowel movement in 3 days per his . He has had 2 episodes of hematuria 5 days ago. He has had no cough or chest congestion. There are no other symptoms to report at this time. Subjective: 02/25: s/p ureteral stents. blood and urine growing Enterococcus. clinically stabilizing. still remains afib RVR, but HR in the 130s and appears to need this HR for perfusion in sepsis. subjectively, the patient feels better than yesterday and denies complaints. states that he has not taken Flexeril in weeks and asks that we discontinue it. ROS negative. 02/26: Overnight developed increasing oxygen requirement shortness of breath currently on partial nonrebreather satting 90-91%. Currently in A. fib with RVR on amiodarone infusion heart rate 120-140s. IV Lopressor 2.5 mg push 1, digoxin 0.25 mg IV 1. Chest x-ray stat. Discontinue IV fluids. IV Lasix 40 mg 1. Enterococcus bacteremia. Discontinue cefepime start Unasyn, called the pharmacy to confirm adequate vancomycin dosing Objective Vital Signs Date Time Temp Pulse Resp B/P (MAP) Pulse Ox O2 Delivery O2 Flow Rate FiO2 02/26/18 06:00 120 02/26/18 06:00 98.2 30 111/73 (86) 91 02/25/18 21:12 Simple Mask 10.00 02/25/18 05:20 80 Intake and Output 02/26/18 02/26/18 02/27/18 08:00 16:00 00:00 Intake Total 100 ml Output Total 1000 ml Balance -900 ml Result Diagram: 02/26/18 0450 02/26/18 0450 Other Results Microbiology Date/Time Source Procedure Growth Status 02/24/18 21:05 Nasal Washing Influenza Types A,B Antigen (JAIMIE) - Final NEGATIVE FOR FLU A AND B ANTIGEN.... Complete Imaging Last 24 hours Impressions Chest X-Ray 02/24/182103 Signed Impressions: Service Date/Time: Saturday, February 24, 2018 21:44 - CONCLUSION: Cardiomegaly. Ajit Booker MD Objective Remarks GENERAL: Elderly gentleman in moderate distress appears critical, on partial nonrebreather heart rate in 140s SKIN: Warm and dry. HEAD: Normocephalic. EYES: No scleral icterus. No injection or drainage. NECK: trachea midline. No JVD CARDIOVASCULAR: tachycardic rate, irregularly irregular rhythm. afib. Heart rate varies from 120-140s RESPIRATORY: equal chest rise. Mild accessory muscle use. Few basilar crackles GASTROINTESTINAL: Abdomen soft, non-tender, nondistended. MUSCULOSKELETAL: No cyanosis, or edema. NEURO EXAM: Alert awake oriented, follows commands. no focal deficits. : Urine clearing with less blood. A/P Assessment and Plan Assessment: 72yM with severe sepsis secondary to obstructive urinary tract infection. Blood cultures growing enterococcus. Now with increasing respiratory insufficiency and hypoxia. Currently on partial nonrebreather. Atrial fibrillation with RVR probably contributing to CHF. Discontinue IV fluids, give 40 mg IV Lasix. IV Lopressor 2.5 mg, IV digoxin 0.25 mg. Continue amiodarone infusion. Start BiPAP 12/5 as needed for hypoxia. Now critically ill has taken a turn for the worse over the last 12 hours Acute hypoxemic respiratory failure Atrial fibrillation with RVR Probable diastolic heart failure -Chest x-ray ABG stat -BiPAP 12/5 as needed -IV Lasix 40 mg 1 -Continue amiodarone for A. fib with RVR -IV metoprolol 2.5 mg and IV digoxin 0.25 mg ordered -Additional diureses as clinically indicated Obstructive hydronephrosis -Discontinued IV fluids due to worsening hypoxia -Urology consultation Dr. South. s/p Cystoscopy with right retrograde double-J stent placement,02/25 Severe sepsis Urinary tract infection -remain in ICU -Blood cultures growing enterococcus 3 out of 4 bottles. Called pharmacy to ensure adequate vancomycin dosing -Discontinue cefepime (has no enterococcus coverage). Start Unasyn 1.5 g every 6 hours renally adjusted Diabetes mellitus -Hold metformin while in the ICU -Insulin sliding scale Acute kidney injury -Due to above -DC IV fluid hydration, IV lasix as above -Strict I's and O -Monitor creatinine and electrolyte Coagulopathy secondary to Coumadin with serotherapeutic INR - secondary to poor renal clearance. - trend coags - FFP 1 U for INR of 7 reported by RN (Re check pending) DVT GI prophylaxis -Augie's and SCDs -INR is supratherapeutic -Pepcid CCT 40 MIN due to acute change in condition patient is critical now Donald Fong MD Feb 26, 2018 08:09
[2018-02-26 08:32] LABS: INTERNATIONAL NORMALIZED RATIO 6.6 RATIO
[2018-02-26] MEDS: AMPICILLIN-SULBACTAM INJ 1,500 MG in SODIUM CHLORIDE 0.9% INJ 100 ML IV SCH ×3 (08:42→20:00)
[2018-02-26] MEDS: DOCUSATE SODIUM 50 MG/SENNA 8.6 MG TAB PO SCH ×2 (08:43→21:00)
[2018-02-26] MEDS: FAMOTIDINE 20 MG/2 ML VIAL IV PUSH SCH ×2 (08:44→21:00)
[2018-02-26] MEDS: SODIUM CHLORIDE 0.9% FLUSH 10 ML FLUSH IV FLUSH SCH ×2 (08:44→21:00)
--- NOTE | 2018-02-26 09:04 | RADRPT ---
EXAM DATE/TIME: 02/26/2018 08:31 [facility] COMPARISON: CHEST SINGLE AP, February 24, 2018, 21:44. INDICATIONS : Shortness of breath. MEDICAL HISTORY : Cardiomegaly. SURGICAL HISTORY : None. ENCOUNTER: Subsequent ACUITY: 3 days PAIN SCORE: 0/10 LOCATION: Bilateral chest FINDINGS: A single AP portable erect view of the chest was obtained. The trachea remains deviated to the right by the known large goiter. Patchy opacity remains in the perihilar regions and both lung bases. There is no focal consolidation or effusion. The heart size remains mildly prominent. The bony thorax is i ntact. CONCLUSION: Patchy opacity remains in both lungs with no focal consolidation. Van Minor MD on February 26, 2018 at 9:01 Board Certified Radiologist. This report was verified electronically.
[2018-02-26] MEDS ORDERED: VANCOMYCIN INJ 2,000 MG in SODIUM CHLORID 0.9% 500 ML INJ 500 ML IV ONE (10:00)
[2018-02-26 14:26] LABS: ALBUMIN 2.4 GM/DL (3.4-5.0); ALKALINE PHOSPHATASE 62 U/L (45-117); ALT (GPT) 52 U/L (12-78); AST (GOT) 52 U/L (15-37); BICARBONATE 23.3 MEQ/L (21.0-32.0); BLOOD UREA NITROGEN 29 MG/DL (7-18); CALCIUM 7.9 MG/DL (8.5-10.1); CHLORIDE 115 MEQ/L (98-107); CREATININE 1.59 MG/DL (0.60-1.30); GLOMERULAR FILTRATION RATE 43 ML/MIN (>89); GLUCOSE,RANDOM 157 MG/DL (74-106); SODIUM (NA) 145 MEQ/L (136-145); TOTAL BILIRUBIN ADULT 0.5 MG/DL (0.2-1.0); TOTAL PROTEIN 6.5 GM/DL (6.4-8.2)
[2018-02-26] MEDS: ACETAMINOPHEN 325 MG TAB PO PRN (14:55)
[2018-02-26] MEDS ORDERED: ADENOSINE IV SOLN 3 MG/ML 2 ML VIAL ONE (17:23)
[2018-02-26] MEDS ORDERED: FUROSEMIDE 40 MG/4 ML VIAL ONE (17:23)
[2018-02-26] MEDS ORDERED: DIGOXIN 0.5 MG/2 ML VIAL ONE (17:28)
[2018-02-26] MEDS ORDERED: METOPROLOL TARTRATE 5 MG/5 ML VIAL ONE ×2 (17:30)
--- NOTE | 2018-02-26 17:30 | OTSOAPIP ---
TIME SESSION COMPLETED: 1725 RECEIVED OCCUPATIONAL THERAPY ORDERS FROM DR. ROSARIO. ATTEMPTED TO SEE PATIENT FOR INITIAL EVALUATION, HOWEVER UPON ARRIVAL PATIENT NOT STABLE. CURRENTLY UNDERGOING RESPIRATORY STRESS WITH MULTIPLE NURSING, RESPIRATORY, AND MEDICAL STAFF IN ROOM STABILIZING PATIENT. WILL REATTEMPT NEXT DAY. Therapist: Mahnaz Hough, OTR/L Signature on file
[2018-02-26] MEDS ORDERED: ROCURONIUM INJ 50 MG/5 ML VIAL ONE (17:34)
[2018-02-26] MEDS ORDERED: ETOMIDATE 40 MG/20 ML VIAL ONE (17:34)
[2018-02-26] MEDS ORDERED: PROPOFOL 1000 MG/100 ML INJ 100 ML IV PRN (18:00)
[2018-02-26] MEDS ORDERED: PROPOFOL 500 MG/50 ML INJ 50 ML ONE (18:02)
[2018-02-26] MEDS ORDERED: FUROSEMIDE 100 MG/10 ML VIAL IV PUSH ONE (18:15)
--- NOTE | 2018-02-26 18:17 | RADRPT ---
EXAM DATE/TIME: 02/26/2018 18:05 [facility] COMPARISON: CHEST SINGLE AP, February 26, 2018, 8:31. INDICATIONS : Post intubation. MEDICAL HISTORY : Cardiomegaly. SURGICAL HISTORY : None. ENCOUNTER: Subsequent ACUITY: 3 days PAIN SCORE: 0/10 LOCATION: Bilateral chest FINDINGS: An endotracheal tube is noted with the distal tip at the inferior margin of the clavicles. Enteric tu be is also seen in the distal tip courses beneath the diaphragm. There is bilateral consolidation inc reased from previous study particularly on the right. Cardiomegaly is noted. CONCLUSION: Worsening airspace disease bilaterally. ET tube as above. Jose Eduardo Huerta MD on February 26, 2018 at 18:14 Board Certified Radiologist. This report was verified electronically.
[2018-02-26] MEDS: VASOPRESSIN INJ 40 UNITS in DEXTROSE 5% IN WATER 100ML INJ 98 ML IV SCH ×2 (18:33)
--- NOTE | 2018-02-26 18:42 | PD.PROCEDR ---
Procedure Note Procedure Procedure: Endotracheal intubation Preop diagnosis: Acute Resp Failure, sepsis, pulmonary edema, A. fib with RVR Postop diagnosis: Same Indication: Acute hypoxic respiratory failure Sedation used: Etomidate 40 mg, fentanyl 200 mcg, rocuronium 50 mg IV Procedure: Patient was preoxygenated with 100% oxygen via Ambu bag with bag mask ventilation, following induction of sedation and neuromuscular blockade, direct laryngoscopy was performed using a Mac 4 blade with grade 3 view. An 8 Kyr[place]z ET tube was passed through the vocal cords under direct visualization up to the 24 centimeter dayanara and after inflating cuff of ET tube, correct placement was confirmed using bagging with good color change on CO2 detector, 5 point auscultation and chest rise with ventilation. Patient was connected to mechanical ventilation. Patient tolerated the procedure well with no immediate complications noted. Postprocedure chest x-ray was ordered. Brain Persaud MD Feb 26, 2018 18:42
[2018-02-26] MEDS ORDERED: TERBUTALINE INJ 1 MG/ML AMP SQ PRN (18:45)
[2018-02-26] MEDS: CHLORHEXIDINE 0.12% (ORAL KIT) 15 ML CUP MT SCH (20:00)
[2018-02-26] MEDS: EPOPROSTENOL NEB SOLUTION 30 NG/KG/MIN 100 ML NEB SCH ×2 (20:00)
[2018-02-26] MEDS: fentaNYL DRIP 250 ML IV PRN (20:00)
[2018-02-26] MEDS: PHENYLEPHRINE INJ 80 MG in DEXTROSE 5% IN WATE 500 ML INJ 492 ML IV PRN ×2 (20:00)
[2018-02-26 20:04] LABS: HEMATOCRIT 46.2 % (39.0-51.0); HEMOGLOBIN 15.4 GM/DL (13.0-17.0); MEAN CELL VOLUME 86.4 FL (80.0-100.0); MEAN CORPUSCULAR HEMOGLOBIN 28.7 PG (27.0-34.0); MEAN CORPUSCULAR HGB CONC 33.2 % (32.0-36.0); PLATELET COUNT 229 TH/MM3 (150-450); RED BLOOD COUNT 5.35 MIL/MM3 (4.50-5.90); RED CELL DISTRIBUTION WIDTH 14.7 % (11.6-17.2); WHITE BLOOD COUNT 18.6 TH/MM3 (4.0-11.0)
[2018-02-26 20:25] LABS: PROTHROMBIN TIME - PATIENT 39.7 SEC (9.8-11.6)
[2018-02-26 20:41] LABS: ALBUMIN 2.5 GM/DL (3.4-5.0); BICARBONATE 21.2 MEQ/L (21.0-32.0); BLOOD UREA NITROGEN 29 MG/DL (7-18); CALCIUM 8.1 MG/DL (8.5-10.1); CHLORIDE 114 MEQ/L (98-107); CREATININE 1.93 MG/DL (0.60-1.30); GLOMERULAR FILTRATION RATE 34 ML/MIN (>89); GLUCOSE,RANDOM 171 MG/DL (74-106); MAGNESIUM 1.9 MG/DL (1.5-2.5); SODIUM (NA) 144 MEQ/L (136-145)
[2018-02-26 20:42] LABS: ALT (GPT) 57 U/L (12-78); AST (GOT) 55 U/L (15-37); PHOSPHORUS 2.7 MG/DL (2.5-4.9)
[2018-02-26 20:44] LABS: ALKALINE PHOSPHATASE 77 U/L (45-117); TOTAL PROTEIN 6.8 GM/DL (6.4-8.2)
[2018-02-26 20:45] LABS: TROPONIN I 0.04 NG/ML (0.02-0.05)
[2018-02-26] MEDS: PRAVASTATIN SOD 40 MG TAB PO SCH (21:00)
[2018-02-26] MEDS: MIDAZOLAM 100 MG/100 ML INJ 100 ML IV PRN (23:00)
[2018-02-27] VITALS (26 sets, daily range): BP systolic 80–138; BP diastolic 60–94; PULSE 92–139; RESP 10–18; TEMP 98.5–100.8; O2SAT 90–100
[2018-02-27 01:02] LABS: RANDOM VANCOMYCIN 12.4 COMMENT; TROPONIN I 0.06 NG/ML (0.02-0.05)
[2018-02-27] MEDS: fentaNYL DRIP 250 ML IV PRN ×2 (01:51→17:26)
[2018-02-27] MEDS: AMPICILLIN-SULBACTAM INJ 1,500 MG in SODIUM CHLORIDE 0.9% INJ 100 ML IV SCH ×4 (02:00→20:25)
[2018-02-27] MEDS: EPOPROSTENOL NEB SOLUTION 30 NG/KG/MIN 100 ML NEB SCH ×6 (04:00→22:24)
[2018-02-27] MEDS: CHLORHEXIDINE GLUCONATE 2 % 1 PACK (2 CLOTHS) TOP SCH (04:00)
[2018-02-27 05:02] LABS: AUTOMATED NEUTROPHIL # 16.6 TH/MM3 (1.8-7.7); BASOPHIL % 0.2 % (0.0-2.0); HEMATOCRIT 43.7 % (39.0-51.0); HEMOGLOBIN 14.3 GM/DL (13.0-17.0); LYMPH % 4.8 % (9.0-44.0); LYMPHOCYTE # 0.9 TH/MM3 (1.0-4.8); MEAN CELL VOLUME 86.6 FL (80.0-100.0); MEAN CORPUSCULAR HEMOGLOBIN 28.3 PG (27.0-34.0); MEAN CORPUSCULAR HGB CONC 32.7 % (32.0-36.0); MONO % 8.3 % (0.0-8.0); MONOCYTE # 1.6 TH/MM3 (0-0.9); NEUT % 86.7 % (16.0-70.0); PLATELET COUNT 231 TH/MM3 (150-450); RED BLOOD COUNT 5.05 MIL/MM3 (4.50-5.90); RED CELL DISTRIBUTION WIDTH 15.2 % (11.6-17.2); WHITE BLOOD COUNT 19.1 TH/MM3 (4.0-11.0)
[2018-02-27 05:14] LABS: INTERNATIONAL NORMALIZED RATIO 4.9 RATIO; PROTHROMBIN TIME - PATIENT 49.6 SEC (9.8-11.6)
[2018-02-27 05:38] LABS: ALBUMIN 2.2 GM/DL (3.4-5.0); AST (GOT) 60 U/L (15-37); BICARBONATE 20.5 MEQ/L (21.0-32.0); BLOOD UREA NITROGEN 33 MG/DL (7-18); CALCIUM 8.1 MG/DL (8.5-10.1); CHLORIDE 114 MEQ/L (98-107); GLOMERULAR FILTRATION RATE 27 ML/MIN (>89); GLUCOSE,RANDOM 228 MG/DL (74-106); SODIUM (NA) 145 MEQ/L (136-145)
[2018-02-27] MEDS: ACETAMINOPHEN 325 MG TAB PO PRN (05:43)
--- NOTE | 2018-02-27 05:44 | RADRPT ---
EXAM DATE/TIME: 02/27/2018 02:29 [facility] COMPARISON: CHEST SINGLE AP, February 26, 2018, 18:05. INDICATIONS : Shortness of breath, possible pulmonary disease. MEDICAL HISTORY : None. SURGICAL HISTORY : None. ENCOUNTER: Subsequent ACUITY: 4 - 6 days PAIN SCORE: Non-responsive. LOCATION: Bilateral chest FINDINGS: Endotracheal tube and nasogastric tube are present in satisfactory position. There has been improveme nt in aeration with decrease in confluence of bilateral infiltrates. Cardiac contours are satisfactor y. CONCLUSION: Improving aeration Ajit Hawthorne MD on February 27, 2018 at 5:41 Board Certified Radiologist. This report was verified electronically.
[2018-02-27 05:45] LABS: ALKALINE PHOSPHATASE 69 U/L (45-117); ALT (GPT) 71 U/L (12-78); TOTAL BILIRUBIN ADULT 0.7 MG/DL (0.2-1.0); TOTAL PROTEIN 6.5 GM/DL (6.4-8.2); TROPONIN I 0.03 NG/ML (0.02-0.05)
[2018-02-27] MEDS: PHENYLEPHRINE INJ 80 MG in DEXTROSE 5% IN WATE 500 ML INJ 492 ML IV PRN ×6 (06:49→17:22)
[2018-02-27] MEDS: CHLORHEXIDINE 0.12% (ORAL KIT) 15 ML CUP MT SCH ×2 (08:00→20:25)
[2018-02-27] MEDS: INSULIN ASPART SUPPLEMENTAL SCALE SQ SCH ×5 (08:00→23:40)
[2018-02-27] MEDS: SODIUM CHLORIDE 0.9% FLUSH 10 ML FLUSH IV FLUSH SCH ×2 (09:00→20:26)
[2018-02-27] MEDS: DOCUSATE SODIUM 50 MG/SENNA 8.6 MG TAB PO SCH ×2 (09:00→20:26)
[2018-02-27] MEDS: FAMOTIDINE 20 MG/2 ML VIAL IV PUSH SCH ×2 (09:00→20:26)
[2018-02-27] MEDS ORDERED: VANCOMYCIN INJ 2,000 MG in SODIUM CHLORID 0.9% 500 ML INJ 500 ML IV SCH (10:00)
[2018-02-27] MEDS: SODIUM CHLOR 0.9% 1000 ML INJ 1,000 ML IV SCH ×2 (11:45→22:24)
[2018-02-27] MEDS: INSULIN DETEMIR 100 UNITS/ML VIAL SQ SCH ×2 (12:00→20:26)
[2018-02-27] MEDS ORDERED: DEXTROSE 50% IN WATER 50 ML VIAL(D50) IV PUSH PRN (12:00)
[2018-02-27] MEDS ORDERED: GLUCAGON 1 MG/ML VIAL OTHER PRN (12:00)
[2018-02-27] MEDS: VASOPRESSIN INJ 40 UNITS in DEXTROSE 5% IN WATER 100ML INJ 98 ML IV SCH ×4 (12:01→23:41)
--- NOTE | 2018-02-27 12:08 | HHI.CCPN ---
Subjective Remarks/Hospital Course Hospital Course: 72-year-old male with history of A. fib, hypertension, diabetes, presents for evaluation of altered mental status and fever. Patient has no complaints however he is a poor historian. He appears mildly lethargic. His states 2 days ago he began with a back pain and nausea with vomiting. He developed a fever. T-max at home was 104. He has not been acting himself since. Patient has not had a bowel movement in 3 days per his . He has had 2 episodes of hematuria 5 days ago. He has had no cough or chest congestion. There are no other symptoms to report at this time. Subjective: 02/25: s/p ureteral stents. blood and urine growing Enterococcus. clinically stabilizing. still remains afib RVR, but HR in the 130s and appears to need this HR for perfusion in sepsis. subjectively, the patient feels better than yesterday and denies complaints. states that he has not taken Flexeril in weeks and asks that we discontinue it. ROS negative. 02/26: Overnight developed increasing oxygen requirement shortness of breath currently on partial nonrebreather satting 90-91%. Currently in A. fib with RVR on amiodarone infusion heart rate 120-140s. IV Lopressor 2.5 mg push 1, digoxin 0.25 mg IV 1. Chest x-ray stat. Discontinue IV fluids. IV Lasix 40 mg 1. Enterococcus bacteremia. Discontinue cefepime start Unasyn, called the pharmacy to confirm adequate vancomycin dosing. 02/27: Large A-aO2 gradient requiring conversion to APRV/Flolan overnight. Settings adjusted today for improved CO2 removal and same mean airway pressure. Weaned to 60%. Continue APRV overnight tonight, convert to conventional tomorrow but will require PEEP at least 15-20 initially. Renal function worse - will hydrate gingerly now that oxygen diffusion has improved. Objective Vital Signs Date Time Temp Pulse Resp B/P (MAP) Pulse Ox O2 Delivery O2 Flow Rate FiO2 02/27/18 08:40 93 90 02/27/18 08:00 100.7 93 10 116/65 (82) 106/77 (87) 02/25/18 21:12 Simple Mask 10.00 Intake and Output 02/27/18 02/27/18 02/28/18 08:00 16:00 00:00 Intake Total 350 ml Output Total 500 ml Balance -150 ml Result Diagram: 02/27/18 0445 02/27/18 0445 Other Results Microbiology Date/Time Source Procedure Growth Status 02/24/18 21:05 Nasal Washing Influenza Types A,B Antigen (JAIMIE) - Final NEGATIVE FOR FLU A AND B ANTIGEN.... Complete 02/24/18 21:05 Urine Catheterized Urine Urine Culture - Final 10-50,000 CFU/ML MIXED GRAM POSITIVE ... Complete Laboratory Tests Test 02/26/18 17:19 02/26/18 19:22 Blood Gas Puncture Site RT RADIAL ART LINE Blood Gas Patient Temperature 98.6 98.6 Blood Gas HCO3 24 mmol/L (22-26) 21 mmol/L (22-26) Blood Gas Base Excess -1.9 mmol/L (-2-2) -4.1 mmol/L (-2-2) Blood Gas Oxygen Saturation 85 % (90-100) 93 % (90-100) Arterial Blood pH 7.27 (7.380-7.420) 7.32 (7.380-7.420) Arterial Blood Partial Pressure CO2 54 mmHg (38-42) 42 mmHg (38-42) Arterial Blood Partial Pressure O2 61 mmHg (61-120) 84 mmHg (61-120) Arterial Blood Oxygen Content 18.4 Vol % (12.0-20.0) 20.8 Vol % (12.0-20.0) Arterial Blood Carboxyhemoglobin 0.2 % (0-4) 0.3 % (0-4) Arterial Blood Methemoglobin 1.3 % (0-2) 1.2 % (0-2) Blood Gas Hemoglobin 15.5 G/DL (12.0-16.0) 15.8 G/DL (12.0-16.0) Oxygen Delivery Device BIPAP VENTILATOR Blood Gas Ventilator Setting IPAP+18/EPAP+6 BILEVEL/APRV Blood Gas Inspired Oxygen 100 % 100 % Imaging Last 24 hours Impressions Chest X-Ray 02/24/182103 Signed Impressions: Service Date/Time: Saturday, February 24, 2018 21:44 - CONCLUSION: Cardiomegaly. Ajit Booker MD Objective Remarks GENERAL: Elderly gentleman, critical ill, on APRV vent mode. SKIN: Warm and dry. HEAD: Normocephalic. EYES: No scleral icterus. No injection or drainage. NECK: trachea midline. Orally intubated. CARDIOVASCULAR: irregularly irregular rhythm. afib. Heart rate varies 90s RESPIRATORY: Lungs well expanded. Good tony air movement. Coarse sounds. GASTROINTESTINAL: Abdomen soft, non-tender, nondistended. Quiet. MUSCULOSKELETAL: No cyanosis, or edema. Well perfused. NEURO EXAM: Sedated, calm. RAFA. : Urine clearing. A/P Assessment and Plan Assessment: 72yM with severe sepsis secondary to obstructive urinary tract infection. Blood cultures growing enterococcus. Now with increasing respiratory insufficiency and hypoxia. Currently on partial nonrebreather. Atrial fibrillation with RVR probably contributing to CHF. Discontinue IV fluids, give 40 mg IV Lasix. IV Lopressor 2.5 mg, IV digoxin 0.25 mg. Continue amiodarone infusion. Start BiPAP 12/5 as needed for hypoxia. Intubated last night, deteriorating status. Acute hypoxemic respiratory failure Atrial fibrillation with RVR Probable diastolic heart failure -Chest x-ray ABG stat -BiPAP 12/5 as needed -IV Lasix 40 mg 1 -Continue amiodarone for A. fib with RVR -IV metoprolol 2.5 mg and IV digoxin 0.25 mg ordered Obstructive hydronephrosis -Discontinued IV fluids due to worsening hypoxia -Urology consultation Dr. South. s/p Cystoscopy with right retrograde double-J stent placement,02/25 Severe sepsis Urinary tract infection -remain in ICU -Blood cultures growing enterococcus 3 out of 4 bottles. Called pharmacy to ensure adequate vancomycin dosing -Discontinue cefepime (has no enterococcus coverage). Start Unasyn 1.5 g every 6 hours renally adjusted -Taper vasopressors Diabetes mellitus -Hold metformin while in the ICU -Insulin sliding scale -> increase -Add bid levemir Acute kidney injury -Due to above -DC IV fluid hydration, IV lasix as above -Strict I's and O -Monitor creatinine and electrolyte - Hydrate gently, try to salvage kidneys.. Coagulopathy secondary to Coumadin with serotherapeutic INR - secondary to poor renal clearance. - trend coags - FFP 1 U for INR of 7 reported by RN (Re check pending) -> 4.9 - No bleeding. DVT GI prophylaxis -Augie's and SCDs -INR is supratherapeutic -Pepcid Overall impression: Patient is critically ill with deteriorating hemodynamic and respiratory function, now requiring rescue recruitment with APRV and inhaled prostacyclin. Renal function marginally worse. Prognosis guarded. Critical Care 45 mins Hood Roman MD Feb 27, 2018 12:08
--- NOTE | 2018-02-27 14:11 | OTSOAPIP ---
TIME SESSION COMPLETED: 1145 TREATMENT TIME: 0 MINS. CHART REVIEWED. PATIENT HAS SINCE HAD A CHANGE IN STATUS AND IN INTENSIVE CARE NOW INTUBATED. WILL SIGN OFF. PLEASE RE-ORDER WHEN STABLE. Therapist: MONTSERRAT EPSTEIN OT/L Signature on file
[2018-02-27] MEDS: PRAVASTATIN SOD 40 MG TAB PO SCH (20:26)
[2018-02-28] VITALS (24 sets, daily range): BP systolic 78–113; BP diastolic 56–71; PULSE 97–142; RESP 13–25; TEMP 99.1–101.4; O2SAT 92–100
[2018-02-28] MEDS: AMPICILLIN-SULBACTAM INJ 1,500 MG in SODIUM CHLORIDE 0.9% INJ 100 ML IV SCH ×4 (01:45→21:05)
--- NOTE | 2018-02-28 03:55 | RADRPT ---
EXAM DATE/TIME: 02/28/2018 02:50 [facility] COMPARISON: CHEST SINGLE AP, February 27, 2018, 2:29. INDICATIONS : Short of breath. MEDICAL HISTORY : None. SURGICAL HISTORY : None. ENCOUNTER: Subsequent ACUITY: 3 days PAIN SCORE: 0/10 LOCATION: Bilateral chest FINDINGS: Endotracheal tube is present with tip 6 cm above the irene. Nasogastric tube descends to the stomach . There has been slight improvement in aeration with decrease in confluence of right lung infiltrate. Grossly stable perihilar and basilar infiltrate on the left. Cardiac contours are grossly unchanged. CONCLUSION: Slight improvement in aeration Ajit Hawthorne MD on February 28, 2018 at 3:52 Board Certified Radiologist. This report was verified electronically.
[2018-02-28] MEDS: EPOPROSTENOL NEB SOLUTION 30 NG/KG/MIN 100 ML NEB SCH ×6 (04:00→15:47)
[2018-02-28] MEDS: CHLORHEXIDINE GLUCONATE 2 % 1 PACK (2 CLOTHS) TOP SCH (04:00)
[2018-02-28] MEDS: INSULIN ASPART SUPPLEMENTAL SCALE SQ SCH ×5 (04:00→20:00)
[2018-02-28 05:01] LABS: HEMATOCRIT 38.1 % (39.0-51.0); HEMOGLOBIN 12.5 GM/DL (13.0-17.0); MEAN CELL VOLUME 87.3 FL (80.0-100.0); MEAN CORPUSCULAR HEMOGLOBIN 28.6 PG (27.0-34.0); MEAN CORPUSCULAR HGB CONC 32.7 % (32.0-36.0); MEAN PLATELET VOLUME 11.2 FL (7.0-11.0); PLATELET COUNT 178 TH/MM3 (150-450); RED BLOOD COUNT 4.37 MIL/MM3 (4.50-5.90); RED CELL DISTRIBUTION WIDTH 14.9 % (11.6-17.2); WHITE BLOOD COUNT 13.8 TH/MM3 (4.0-11.0)
[2018-02-28 05:07] LABS: PROTHROMBIN TIME - PATIENT 63.3 SEC (9.8-11.6)
[2018-02-28 05:11] LABS: INTERNATIONAL NORMALIZED RATIO 6.3 RATIO
[2018-02-28 05:22] LABS: BICARBONATE 22.9 MEQ/L (21.0-32.0); CALCIUM 8.2 MG/DL (8.5-10.1); CREATININE 1.58 MG/DL (0.60-1.30); RANDOM VANCOMYCIN 12.7 COMMENT
[2018-02-28] MEDS: SODIUM CHLOR 0.9% 1000 ML INJ 1,000 ML IV SCH ×2 (07:45→18:19)
[2018-02-28] MEDS: FAMOTIDINE 20 MG/2 ML VIAL IV PUSH SCH (08:13)
[2018-02-28] MEDS: SODIUM CHLORIDE 0.9% FLUSH 10 ML FLUSH IV FLUSH SCH ×2 (08:13→21:07)
[2018-02-28] MEDS: DOCUSATE SODIUM 50 MG/SENNA 8.6 MG TAB PO SCH ×2 (08:13→21:05)
[2018-02-28] MEDS: INSULIN DETEMIR 100 UNITS/ML VIAL SQ SCH ×2 (08:14→21:00)
[2018-02-28] MEDS: CHLORHEXIDINE 0.12% (ORAL KIT) 15 ML CUP MT SCH ×2 (08:16→21:05)
[2018-02-28] MEDS ORDERED: PHYTONADIONE 10 MG/D5W 50 ML IV ONE ×2 (09:00)
[2018-02-28] MEDS: ACETAMINOPHEN 325 MG TAB PO PRN (11:06)
[2018-02-28] MEDS: MIDAZOLAM 100 MG/100 ML INJ 100 ML IV PRN (11:15)
--- NOTE | 2018-02-28 14:49 | HHI.CCPN ---
Subjective Remarks/Hospital Course Hospital Course: 72-year-old male with history of A. fib, hypertension, diabetes, presents for evaluation of altered mental status and fever. Patient has no complaints however he is a poor historian. He appears mildly lethargic. His states 2 days ago he began with a back pain and nausea with vomiting. He developed a fever. T-max at home was 104. He has not been acting himself since. Patient has not had a bowel movement in 3 days per his . He has had 2 episodes of hematuria 5 days ago. He has had no cough or chest congestion. There are no other symptoms to report at this time. Subjective: 02/25: s/p ureteral stents. blood and urine growing Enterococcus. clinically stabilizing. still remains afib RVR, but HR in the 130s and appears to need this HR for perfusion in sepsis. subjectively, the patient feels better than yesterday and denies complaints. states that he has not taken Flexeril in weeks and asks that we discontinue it. ROS negative. 02/26: Overnight developed increasing oxygen requirement shortness of breath currently on partial nonrebreather satting 90-91%. Currently in A. fib with RVR on amiodarone infusion heart rate 120-140s. IV Lopressor 2.5 mg push 1, digoxin 0.25 mg IV 1. Chest x-ray stat. Discontinue IV fluids. IV Lasix 40 mg 1. Enterococcus bacteremia. Discontinue cefepime start Unasyn, called the pharmacy to confirm adequate vancomycin dosing. 02/27: Large A-aO2 gradient requiring conversion to APRV/Flolan overnight. Settings adjusted today for improved CO2 removal and same mean airway pressure. Weaned to 60%. Continue APRV overnight tonight, convert to conventional tomorrow but will require PEEP at least 15-20 initially. Renal function worse - will hydrate gingerly now that oxygen diffusion has improved. 02/28: FiO2 down to 40%, but remains on APRV. Remains in A. fib with RVR. Weaned off Haider-Synephrine but remains on vasopressin. Enterococcus sensitive to ampicillin. Will discontinue vancomycin. Remains on Flolan-start weaning. Change from Bilevel to PRVC/AC Objective Vital Signs Date Time Temp Pulse Resp B/P (MAP) Pulse Ox O2 Delivery O2 Flow Rate FiO2 02/28/18 12:09 100 40 02/28/18 12:03 101.2 119 24 101/65 02/25/18 21:12 Simple Mask 10.00 Intake and Output 02/28/18 02/28/18 03/01/18 08:00 16:00 00:00 Intake Total 1506.8 ml 251 ml Output Total 550 ml Balance 956.8 ml 251 ml Result Diagram: 02/28/18 0345 02/28/18 0345 Other Results Laboratory Tests Test 02/28/18 03:02 Blood Gas Puncture Site ART LINE Blood Gas Patient Temperature 98.6 Blood Gas HCO3 21 mmol/L (22-26) Blood Gas Base Excess -3.4 mmol/L (-2-2) Blood Gas Oxygen Saturation 96 % (90-100) Arterial Blood pH 7.37 (7.380-7.420) Arterial Blood Partial Pressure CO2 38 mmHg (38-42) Arterial Blood Partial Pressure O2 122 mmHg (61-120) Arterial Blood Oxygen Content 19.3 Vol % (12.0-20.0) Arterial Blood Carboxyhemoglobin 0.5 % (0-4) Arterial Blood Methemoglobin 1.2 % (0-2) Blood Gas Hemoglobin 14.1 G/DL (12.0-16.0) Oxygen Delivery Device VENTILATOR Blood Gas Ventilator Setting SEE COMMENTS Blood Gas Inspired Oxygen 50 % Imaging Last 24 hours Impressions Chest X-Ray 02/24/182103 Signed Impressions: Service Date/Time: Saturday, February 24, 2018 21:44 - CONCLUSION: Cardiomegaly. Ajit Booker MD Objective Remarks GENERAL: Elderly gentleman, critical ill, on APRV vent mode. SKIN: Warm and dry. HEAD: Normocephalic. EYES: No scleral icterus. No injection or drainage. NECK: trachea midline. Orally intubated. CARDIOVASCULAR: irregularly irregular rhythm. afib. Heart rate varies 110-130 RESPIRATORY: Lungs well expanded. Good tony air movement. Coarse sounds. GASTROINTESTINAL: Abdomen soft, non-tender, nondistended. Quiet. MUSCULOSKELETAL: No cyanosis, or edema. Well perfused. NEURO EXAM: Sedated, calm. RAFA. Moves extremities spontaneously : Urine clearing. A/P Assessment and Plan Assessment: 72yM with severe sepsis secondary to obstructive urinary tract infection. Blood cultures growing enterococcus. Now with increasing hypoxia, requiring emergency intubation and mechanical ventilation with APRV, most likely ALI from sepsis. Probable acute lng injury from severe sepsis. Atrial fibrillation with RVR probably contributing to CHF. Continue amiodarone infusion. Acute hypoxemic respiratory failure Acute lung injury Atrial fibrillation with RVR Probable diastolic heart failure -APRV mode of ventilation due to severe hypoxia. Change to PRVC/AC TV 600 iT 11.3 with PEEP 15 -Start to wean Flolan per protocol -Continue gentle hydration, 500 mL of normal saline bolus due to marginal urine output -Continue amiodarone for A. fib with RVR -IV metoprolol and IV digoxin as needed Obstructive hydronephrosis -Urology Dr. South. s/p Cystoscopy with right retrograde double-J stent placement, 02/25 Septic shock Enterococcus bacteremia Urinary tract infection -Blood cultures growing enterococcus 4 out of 4 bottles. -Continue Unasyn 1.5 g every 6 hours renally adjusted DC vancomycin -Wean vasopressors as tolerated (off Haider-Synephrine continue vasopressin) Diabetes mellitus -Hold metformin while in the ICU -Insulin sliding scale -> increase -Bid levemir Acute kidney injury -Due to above -Strict I's and O -Monitor creatinine and electrolyte - Hydrate gently, try to salvage kidneys.. Coagulopathy secondary to Coumadin with suprtherapeutic INR - secondary to poor renal clearance. - trend coags - FFP 2 U for INR of 6.5 - No bleeding. DVT GI prophylaxis -Augie's and SCDs -INR is supratherapeutic -PepcidI V Access -Central line not placed due to INR of 6.5 -Continue PIV Overall impression: Patient is critically ill with deteriorating hemodynamic and respiratory function, now requiring rescue recruitment with APRV and inhaled prostacyclin. Renal function marginally worse, now improving with gentle hydration. Prognosis guarded. Critical Care 35 mins Donald Fong MD Feb 28, 2018 14:49
[2018-02-28] MEDS ORDERED: VANCOMYCIN INJ 2,000 MG in SODIUM CHLORID 0.9% 500 ML INJ 500 ML IV SCH (15:00)
[2018-02-28] MEDS ORDERED: SODIUM CHLORID 0.9% 500 ML INJ 500 ML IV ONE ×2 (15:30→20:00)
--- NOTE | 2018-02-28 17:40 | ECHRPT ---
Indication: AFIB/AFLUTTER CONCLUSIONS Very technically difficult study. Mild concentric left ventricular hypertrophy. In limited views, the ejection fraciton appears around 40%. There was limited left ventricular wall motion assessment due to poor endocardial visualization. There is trace tricuspid valve regurgitation. BP: 104 / 74 HR: 110 Rhythm: Atrial flutter MEASUREMENTS (Male / Female) Normal Values Technical Quality:Very technically difficult study 2D ECHO LV Diastolic Diameter PLAX 4.5 cm 4.2 - 5.9 / 3.9 - 5.3 cm LV Systolic Diameter PLAX 4.1 cm IVS Diastolic Thickness 1.2 cm 0.6 - 1.0 / 0.6 - 0.9 cm LVPW Diastolic Thickness 1.0 cm 0.6 - 1.0 / 0.6 - 0.9 cm LV Relative Wall Thickness 0.5 RV Internal Dim ED PLAX 3.4 cm LVOT Diameter 2.4 cm M-MODE Aortic Root Diameter MM 3.6 cm LA Systolic Diameter MM 4.9 cm LA Ao Ratio MM 1.4 DOPPLER MV Area PHT 4.2 cm Mitral E Point Velocity 45.0 cm/s Mitral A Point Velocity 30.2 cm/s Mitral E to A Ratio 1.5 TR Peak Velocity 237.0 cm/s TR Peak Gradient 22.5 mmHg Right Atrial Pressure 10.0 mmHg Pulmonary Artery Systolic Pressu 32.5 mmHg Right Ventricular Systolic Press 32.5 mmHg FINDINGS LEFT VENTRICLE Normal left ventricular size. Mild concentric left ventricular hypertrophy. In limited views, the ejection fraciton appears around 40% There was limited left ventricular wall motion assessment due to poor endocardial visualization. RIGHT VENTRICLE Normal right ventricular size and systolic function. LEFT ATRIUM The left atrium was not well visualized. RIGHT ATRIUM The right atrium is not well visualized. ATRIAL SEPTUM Normal atrial septal thickness AORTA The aortic root and proximal ascending aorta are normal in size on limited imaging. MITRAL VALVE Mitral annular calcification is present. The mitral valve is not well visualized. AORTIC VALVE The aortic valve is not well visualized. TRICUSPID VALVE Grossly normal tricuspid valve. There is trace tricuspid valve regurgitation. PULMONARY VALVE The pulmonary valve is not well visualized. Bladimir Hoang DO (Electronically Signed) Final Date:28 February 2018 17:39
[2018-02-28] MEDS: fentaNYL DRIP 250 ML IV PRN (18:19)
[2018-02-28] MEDS: VASOPRESSIN INJ 40 UNITS in DEXTROSE 5% IN WATER 100ML INJ 98 ML IV SCH ×2 (20:33)
[2018-02-28] MEDS: PRAVASTATIN SOD 40 MG TAB PO SCH (21:05)
[2018-02-28] MEDS: FAMOTIDINE 20 MG TAB PO SCH (21:05)
[2018-03-01] VITALS (30 sets, daily range): BP systolic 90–151; BP diastolic 57–84; PULSE 88–146; RESP 20–24; TEMP 98.5–99.1; O2SAT 91–98
[2018-03-01] MEDS ORDERED: EPOPROSTENOL NEB SOLUTION 20 NG/KG/MIN 100 ML NEB SCH ×2
[2018-03-01] MEDS: SODIUM CHLOR 0.9% 1000 ML INJ 1,000 ML IV SCH ×2 (00:03→16:46)
[2018-03-01] MEDS: AMPICILLIN-SULBACTAM INJ 1,500 MG in SODIUM CHLORIDE 0.9% INJ 100 ML IV SCH ×4 (02:04→20:15)
[2018-03-01] MEDS: CHLORHEXIDINE GLUCONATE 2 % 1 PACK (2 CLOTHS) TOP SCH (04:00)
[2018-03-01] MEDS: INSULIN ASPART SUPPLEMENTAL SCALE SQ SCH ×7 (04:00→23:42)
[2018-03-01 05:59] LABS: AUTOMATED NEUTROPHIL # 8.2 TH/MM3 (1.8-7.7); BASOPHIL % 0.2 % (0.0-2.0); EOSINOPHIL # 0.1 TH/MM3 (0-0.4); HEMATOCRIT 34.5 % (39.0-51.0); HEMOGLOBIN 11.4 GM/DL (13.0-17.0); LYMPH % 10.5 % (9.0-44.0); LYMPHOCYTE # 1.1 TH/MM3 (1.0-4.8); MEAN CELL VOLUME 86.5 FL (80.0-100.0); MEAN CORPUSCULAR HEMOGLOBIN 28.7 PG (27.0-34.0); MEAN CORPUSCULAR HGB CONC 33.1 % (32.0-36.0); MEAN PLATELET VOLUME 11.3 FL (7.0-11.0); MONO % 9.2 % (0.0-8.0); NEUT % 79.1 % (16.0-70.0); PLATELET COUNT 186 TH/MM3 (150-450); RED BLOOD COUNT 3.99 MIL/MM3 (4.50-5.90); RED CELL DISTRIBUTION WIDTH 14.6 % (11.6-17.2); WHITE BLOOD COUNT 10.4 TH/MM3 (4.0-11.0)
--- NOTE | 2018-03-01 06:11 | RADRPT ---
EXAM DATE/TIME: 03/01/2018 03:12 [facility] COMPARISON: CHEST SINGLE AP, February 28, 2018, 2:50. INDICATIONS : Short of breath. MEDICAL HISTORY : None. SURGICAL HISTORY : None. ENCOUNTER: Subsequent ACUITY: 4 - 6 days PAIN SCORE: 0/10 LOCATION: Bilateral chest FINDINGS: Endotracheal tube and nasogastric tube are stable. There is diffuse hazy bilateral pleuroparenchymal opacity, right worse than left which may be slightly worse although this may be technical to some deg ree. Cardiac contours appear grossly stable. CONCLUSION: Possible slight worsening in aeration Ajit Hawthorne MD on March 01, 2018 at 6:08 Board Certified Radiologist. This report was verified electronically.
[2018-03-01 06:18] LABS: AST (GOT) 46 U/L (15-37); BICARBONATE 23.2 MEQ/L (21.0-32.0); BLOOD UREA NITROGEN 43 MG/DL (7-18); CALCIUM 8.1 MG/DL (8.5-10.1); CHLORIDE 116 MEQ/L (98-107); CREATININE 1.35 MG/DL (0.60-1.30); GLOMERULAR FILTRATION RATE 52 ML/MIN (>89); GLUCOSE,RANDOM 78 MG/DL (74-106); MAGNESIUM 1.9 MG/DL (1.5-2.5); SODIUM (NA) 147 MEQ/L (136-145)
[2018-03-01 06:20] LABS: ALT (GPT) 53 U/L (12-78)
[2018-03-01 06:22] LABS: ALKALINE PHOSPHATASE 49 U/L (45-117); TOTAL BILIRUBIN ADULT 1.1 MG/DL (0.2-1.0); TOTAL PROTEIN 5.8 GM/DL (6.4-8.2)
[2018-03-01 06:27] LABS: INTERNATIONAL NORMALIZED RATIO 1.3 RATIO
[2018-03-01] MEDS ORDERED: EPOPROSTENOL NEB SOLUTION 10 NG/KG/MIN 100 ML NEB SCH ×2 (08:00)
[2018-03-01] MEDS: DOCUSATE SODIUM 50 MG/SENNA 8.6 MG TAB PO SCH ×2 (08:29→20:15)
[2018-03-01] MEDS: SODIUM CHLORIDE 0.9% FLUSH 10 ML FLUSH IV FLUSH SCH ×2 (08:29→20:15)
[2018-03-01] MEDS: FAMOTIDINE 20 MG TAB PO SCH ×2 (08:29→20:35)
[2018-03-01] MEDS: INSULIN DETEMIR 100 UNITS/ML VIAL SQ SCH ×2 (08:30→20:16)
[2018-03-01] MEDS: CHLORHEXIDINE 0.12% (ORAL KIT) 15 ML CUP MT SCH ×2 (08:33→20:15)
--- NOTE | 2018-03-01 10:46 | HHI.CCPN ---
Subjective Remarks/Hospital Course Hospital Course: 72-year-old male with history of A. fib, hypertension, diabetes, presents for evaluation of altered mental status and fever. Patient has no complaints however he is a poor historian. He appears mildly lethargic. His states 2 days ago he began with a back pain and nausea with vomiting. He developed a fever. T-max at home was 104. He has not been acting himself since. Patient has not had a bowel movement in 3 days per his . He has had 2 episodes of hematuria 5 days ago. He has had no cough or chest congestion. There are no other symptoms to report at this time. Subjective: 02/25: s/p ureteral stents. blood and urine growing Enterococcus. clinically stabilizing. still remains afib RVR, but HR in the 130s and appears to need this HR for perfusion in sepsis. subjectively, the patient feels better than yesterday and denies complaints. states that he has not taken Flexeril in weeks and asks that we discontinue it. ROS negative. 02/26: Overnight developed increasing oxygen requirement shortness of breath currently on partial nonrebreather satting 90-91%. Currently in A. fib with RVR on amiodarone infusion heart rate 120-140s. IV Lopressor 2.5 mg push 1, digoxin 0.25 mg IV 1. Chest x-ray stat. Discontinue IV fluids. IV Lasix 40 mg 1. Enterococcus bacteremia. Discontinue cefepime start Unasyn, called the pharmacy to confirm adequate vancomycin dosing. 02/27: Large A-aO2 gradient requiring conversion to APRV/Flolan overnight. Settings adjusted today for improved CO2 removal and same mean airway pressure. Weaned to 60%. Continue APRV overnight tonight, convert to conventional tomorrow but will require PEEP at least 15-20 initially. Renal function worse - will hydrate gingerly now that oxygen diffusion has improved. 02/28: FiO2 down to 40%, but remains on APRV. Remains in A. fib with RVR. Weaned off Haider-Synephrine but remains on vasopressin. Enterococcus sensitive to ampicillin. Will discontinue vancomycin. Remains on Flolan-start weaning. Change from Bilevel to PRVC/AC 03/01: Remains critically ill but stabilizing now. APRV changed to PRVC with PEEP of 15, patient tolerating well oxygenation prieto, even though there is lung de- recruitment, increasing infiltrates. Flolan down to the last bag wean to DC. UO output improved with fluid boluses creatinine 1.35 today Objective Vital Signs Date Time Temp Pulse Resp B/P (MAP) Pulse Ox O2 Delivery O2 Flow Rate FiO2 03/01/18 07:49 96 50 03/01/18 07:00 104 115/73 (87) 115/65 (82) 03/01/18 04:00 98.9 20 02/25/18 21:12 Simple Mask 10.00 Intake and Output 03/01/18 03/01/18 03/02/18 08:00 16:00 00:00 Intake Total 1215 ml Output Total 850 ml Balance 365 ml Result Diagram: 03/01/1840903/01/18409 Imaging Last 24 hours Impressions Chest X-Ray 02/24/182103 Signed Impressions: Service Date/Time: Saturday, February 24, 2018 21:44 - CONCLUSION: Cardiomegaly. Ajit Booker MD Objective Remarks GENERAL: Elderly gentleman, critical ill, on PRVC vent mode. SKIN: Warm and dry. HEAD: Normocephalic. EYES: No scleral icterus. No injection or drainage. NECK: trachea midline. Orally intubated. CARDIOVASCULAR: irregularly irregular rhythm. afib. Heart rate varies 110-130 RESPIRATORY: Lungs well expanded. Good tony air movement. Coarse sounds. GASTROINTESTINAL: Abdomen soft, non-tender, nondistended. Quiet. MUSCULOSKELETAL: No cyanosis, or edema. Well perfused. NEURO EXAM: Sedated, calm. RAFA. Moves extremities spontaneously. Wakes up and follows commands A/P Assessment and Plan Assessment: 72yM with severe sepsis secondary to obstructive urinary tract infection. Blood cultures growing enterococcus. Now with increasing hypoxia, requiring emergency intubation and mechanical ventilation with APRV, most likely ALI from sepsis. Probable ALI from severe sepsis. Atrial fibrillation with RVR probably contributing to CHF. Continue amiodarone infusion. Acute hypoxemic respiratory failure Acute lung injury Atrial fibrillation with RVR Probable diastolic heart failure -APRV changed to PRVC/AC TV 600 iT 11.3 with PEEP 15 on 02/28/18. -Slowly reduce PEEP and wean to DC Flolan per protocol -Continue gentle hydration, 500 mL of normal saline bolus given yesterday with improving output -Continue amiodarone for A. fib with RVR -IV metoprolol and IV digoxin as needed Obstructive hydronephrosis -Urology Dr. South. s/p Cystoscopy with right retrograde double-J stent placement, 02/25 Septic shock Enterococcus bacteremia Urinary tract infection -Blood cultures growing enterococcus 4 out of 4 bottles. -Continue Unasyn 1.5 g every 6 hours renally adjusted DC vancomycin -Currently off all vasopressors Diabetes mellitus -Hold metformin while in the ICU -Insulin sliding scale -> increase -Bid levemir Acute kidney injury -Due to above -Strict I's and O -Monitor creatinine and electrolyte, creatinine continues to improve with gentle hydration Coagulopathy secondary to Coumadin with suprtherapeutic INR - secondary to poor renal clearance. - trend coags - s/p FFP 2 U for INR of 6.5 . INR 1.3 today - No bleeding. DVT GI prophylaxis -Augie's and SCDs -INR is supratherapeutic -PepcidI IV Access -Central line not placed due to INR of 6.5 -Continue PIV -Start IV Heparin Overall impression: Patient is critically ill with deteriorating hemodynamic and respiratory function, has required rescue recruitment with APRV and inhaled prostacyclin. Renal function improving with gentle hydration. Prognosis guarded , but showing some signs of improvement now Critical Care 35 mins Donald Fong MD Mar 01, 2018 10:46
[2018-03-01 12:29] LABS: HEMATOCRIT 35.4 % (39.0-51.0); HEMOGLOBIN 11.8 GM/DL (13.0-17.0); MEAN CELL VOLUME 86.2 FL (80.0-100.0); MEAN CORPUSCULAR HEMOGLOBIN 28.8 PG (27.0-34.0); MEAN CORPUSCULAR HGB CONC 33.4 % (32.0-36.0); MEAN PLATELET VOLUME 11.1 FL (7.0-11.0); PLATELET COUNT 176 TH/MM3 (150-450); RED CELL DISTRIBUTION WIDTH 14.8 % (11.6-17.2); WHITE BLOOD COUNT 9.7 TH/MM3 (4.0-11.0)
[2018-03-01 12:37] LABS: INTERNATIONAL NORMALIZED RATIO 1.3 RATIO
[2018-03-01] MEDS: VASOPRESSIN INJ 40 UNITS in DEXTROSE 5% IN WATER 100ML INJ 98 ML IV SCH ×2 (13:13)
[2018-03-01] MEDS: HEPARIN-D5W 25,000 U/250 ML 250 ML IV PRN (13:44)
[2018-03-01] MEDS: fentaNYL DRIP 250 ML IV PRN (14:43)
[2018-03-01] MEDS: LACTULOSE SYRUP 20 GM/30 ML CUP OG-TUBE SCH ×3 (16:45→23:41)
[2018-03-01] MEDS ORDERED: AMIODARONE INJ 150 MG in DEXTROSE 5% IN WATER 100ML INJ 97 ML IV ONE ×2 (19:11)
[2018-03-01] MEDS ORDERED: DIGOXIN 0.5 MG/2 ML VIAL IV PUSH ONE (19:15)
[2018-03-01] MEDS ORDERED: AMIODARONE INJ 450 MG in DEXTROSE 5% IN WATE(EXCEL) INJ 241 ML IV PRN ×2 (19:21)
[2018-03-01] MEDS: METOPROLOL TARTRATE 5 MG/5 ML VIAL IV PUSH PRN (19:43)
[2018-03-01] MEDS: PRAVASTATIN SOD 40 MG TAB PO SCH (20:15)
[2018-03-01] MEDS: SODIUM CHLORIDE 0.9% FLUSH 10 ML FLUSH IV FLUSH PRN (20:15)
[2018-03-01] MEDS: AMIODARONE INJ 450 MG in SODIUM CHLOR 0.9% (EXCEL) INJ 241 ML IV PRN (21:18)
[2018-03-02] VITALS (27 sets, daily range): BP systolic 83–120; BP diastolic 50–78; PULSE 79–107; RESP 20; TEMP 97.6–99.7; O2SAT 92–100
[2018-03-02] MEDS: AMPICILLIN-SULBACTAM INJ 1,500 MG in SODIUM CHLORIDE 0.9% INJ 100 ML IV SCH ×4 (02:29→20:50)
[2018-03-02] MEDS ORDERED: PHARMACY ORDERED LAB ONE (02:45)
[2018-03-02] MEDS: CHLORHEXIDINE GLUCONATE 2 % 1 PACK (2 CLOTHS) TOP SCH (04:00)
[2018-03-02] MEDS: VASOPRESSIN INJ 40 UNITS in DEXTROSE 5% IN WATER 100ML INJ 98 ML IV SCH ×2 (04:34)
[2018-03-02] MEDS: INSULIN ASPART SUPPLEMENTAL SCALE SQ SCH ×5 (04:34→20:50)
[2018-03-02] MEDS: LACTULOSE SYRUP 20 GM/30 ML CUP OG-TUBE SCH ×3 (04:35→18:00)
[2018-03-02 04:57] LABS: HEMOGLOBIN 11.5 GM/DL (13.0-17.0); MEAN CELL VOLUME 86.6 FL (80.0-100.0); MEAN CORPUSCULAR HEMOGLOBIN 28.5 PG (27.0-34.0); MEAN CORPUSCULAR HGB CONC 32.9 % (32.0-36.0); MEAN PLATELET VOLUME 10.7 FL (7.0-11.0); PLATELET COUNT 207 TH/MM3 (150-450); RED BLOOD COUNT 4.04 MIL/MM3 (4.50-5.90); RED CELL DISTRIBUTION WIDTH 14.6 % (11.6-17.2); WHITE BLOOD COUNT 9.4 TH/MM3 (4.0-11.0)
[2018-03-02] MEDS: AMIODARONE INJ 450 MG in SODIUM CHLOR 0.9% (EXCEL) INJ 241 ML IV PRN ×2 (05:03→20:53)
[2018-03-02 05:06] LABS: INTERNATIONAL NORMALIZED RATIO 1.3 RATIO
[2018-03-02 05:19] LABS: BICARBONATE 22.9 MEQ/L (21.0-32.0); CREATININE 1.13 MG/DL (0.60-1.30)
[2018-03-02] MEDS: HEPARIN-D5W 25,000 U/250 ML 250 ML IV PRN ×2 (06:42→20:53)
[2018-03-02] MEDS: CHLORHEXIDINE 0.12% (ORAL KIT) 15 ML CUP MT SCH ×2 (08:00→20:50)
[2018-03-02] MEDS: fentaNYL DRIP 250 ML IV PRN ×2 (08:36→20:51)
[2018-03-02] MEDS: INSULIN DETEMIR 100 UNITS/ML VIAL SQ SCH ×2 (08:45→20:51)
[2018-03-02] MEDS: FAMOTIDINE 20 MG TAB PO SCH ×2 (08:46→20:51)
[2018-03-02] MEDS: DOCUSATE SODIUM 50 MG/SENNA 8.6 MG TAB PO SCH ×2 (08:46→19:37)
[2018-03-02] MEDS: SODIUM CHLORIDE 0.9% FLUSH 10 ML FLUSH IV FLUSH SCH ×2 (08:46→20:51)
--- NOTE | 2018-03-02 11:38 | RADRPT ---
EXAM DATE/TIME: 03/02/2018 11:22 [facility] COMPARISON: CHEST SINGLE AP, March 01, 2018, 3:12. INDICATIONS : Short of breath MEDICAL HISTORY : Varicocele. SURGICAL HISTORY : None. ENCOUNTER: Subsequent ACUITY: 4 - 6 days PAIN SCORE: Non-responsive. LOCATION: chest FINDINGS: ET tube and gastric tube in place. Persistent hazy opacity throughout the right kidney thorax with l oss of delineation of the right hemidiaphragm, similar in severity to prior. There is persistent con solidation left lower lobe. CONCLUSION: Stable airspace opacities throughout the right lung and in the left lower lung. Ed Draper MD on March 02, 2018 at 11:35 Board Certified Radiologist. This report was verified electronically.
--- NOTE | 2018-03-02 12:20 | HHI.CCPN ---
Subjective Remarks/Hospital Course Hospital Course: 72-year-old male with history of A. fib, hypertension, diabetes, presents for evaluation of altered mental status and fever. Patient has no complaints however he is a poor historian. He appears mildly lethargic. His states 2 days ago he began with a back pain and nausea with vomiting. He developed a fever. T-max at home was 104. He has not been acting himself since. Patient has not had a bowel movement in 3 days per his . He has had 2 episodes of hematuria 5 days ago. He has had no cough or chest congestion. There are no other symptoms to report at this time. Subjective: 02/25: s/p ureteral stents. blood and urine growing Enterococcus. clinically stabilizing. still remains afib RVR, but HR in the 130s and appears to need this HR for perfusion in sepsis. subjectively, the patient feels better than yesterday and denies complaints. states that he has not taken Flexeril in weeks and asks that we discontinue it. ROS negative. 02/26: Overnight developed increasing oxygen requirement shortness of breath currently on partial nonrebreather satting 90-91%. Currently in A. fib with RVR on amiodarone infusion heart rate 120-140s. IV Lopressor 2.5 mg push 1, digoxin 0.25 mg IV 1. Chest x-ray stat. Discontinue IV fluids. IV Lasix 40 mg 1. Enterococcus bacteremia. Discontinue cefepime start Unasyn, called the pharmacy to confirm adequate vancomycin dosing. 02/27: Large A-aO2 gradient requiring conversion to APRV/Flolan overnight. Settings adjusted today for improved CO2 removal and same mean airway pressure. Weaned to 60%. Continue APRV overnight tonight, convert to conventional tomorrow but will require PEEP at least 15-20 initially. Renal function worse - will hydrate gingerly now that oxygen diffusion has improved. 02/28: FiO2 down to 40%, but remains on APRV. Remains in A. fib with RVR. Weaned off Haider-Synephrine but remains on vasopressin. Enterococcus sensitive to ampicillin. Will discontinue vancomycin. Remains on Flolan-start weaning. Change from Bilevel to PRVC/AC 03/01: Remains critically ill but stabilizing now. APRV changed to PRVC with PEEP of 15, patient tolerating well oxygenation prieto, even though there is lung de- recruitment, increasing infiltrates. Flolan down to the last bag wean to DC. UO output improved with fluid boluses creatinine 1.35 today 03/02: Critically ill but stabilizing to slightly improving. FiO2 down to 50%, PEEP stable at 10. Chest x-ray shows consolidation involving most of right lung and left lower lobe. Check CT of the chest to evaluate better. Currently on heparin. Flolan was DC'd yesterday Objective Vital Signs Date Time Temp Pulse Resp B/P (MAP) Pulse Ox O2 Delivery O2 Flow Rate FiO2 03/02/18 11:42 93 45 03/02/18 08:00 99.7 82 20 101/70 (80) 109/68 (82) Intake and Output 03/02/18 03/02/18 03/02/18 07:59 15:59 23:59 Intake Total 2044 ml Output Total 700 ml Balance 1344 ml Result Diagram: 03/02/1840903/02/18 0410 Imaging Last 24 hours Impressions Chest X-Ray 02/24/182103 Signed Impressions: Service Date/Time: Saturday, February 24, 2018 21:44 - CONCLUSION: Cardiomegaly. Ajit Booker MD Objective Remarks GENERAL: Elderly gentleman, critical ill, on PRVC vent mode. SKIN: Warm and dry. HEAD: Normocephalic. EYES: No scleral icterus. No injection or drainage. NECK: trachea midline. Orally intubated. CARDIOVASCULAR: irregularly irregular rhythm. afib. Heart rate varies 70-80 RESPIRATORY: Lungs well expanded. Good tony air movement. Coarse sounds predominantly at the bases GASTROINTESTINAL: Abdomen soft, non-tender, nondistended. MUSCULOSKELETAL: No cyanosis, or edema. Well perfused. NEURO EXAM: Sedated, calm. RAFA. Moves extremities spontaneously. Wakes up and follows commands A/P Assessment and Plan Assessment: 72yM with severe sepsis secondary to obstructive urinary tract infection. Blood cultures growing enterococcus. Now with increasing hypoxia, requiring emergency intubation and mechanical ventilation with APRV, most likely ALI from severe sepsis. Atrial fibrillation with RVR probably contributing to CHF. Continue amiodarone infusion. A/P Acute hypoxemic respiratory failure Acute lung injury Atrial fibrillation with RVR Probable diastolic heart failure Right lung consolidation -APRV changed to PRVC/AC TV 600 iT 11.3 with PEEP 15 on 02/28/18. PEEP down to 10 , FiO2 60% -Slowly reduce PEEP and off Flolan since 03/01/18 -Continue gentle hydration -Continue amiodarone for A. fib with RVR -IV metoprolol and IV digoxin as needed Obstructive hydronephrosis -Urology Dr. South. s/p Cystoscopy with right retrograde double-J stent placement, 02/25 Septic shock-improving Enterococcus bacteremia Urinary tract infection -Blood cultures growing enterococcus 4 out of 4 bottles. F/U blood culture today -Continue Unasyn 1.5 g every 6 hours renally adjusted, increase to 3 GM as renal function is improved -Currently off all vasopressors Diabetes mellitus -Hold metformin while in the ICU -Insulin sliding scale -> increase -Bid levemir Acute kidney injury -Due to above -Strict I's and O -Monitor creatinine and electrolyte, creatinine continues to improve with gentle hydration Coagulopathy secondary to Coumadin with supratherapeutic INR - secondary to poor renal clearance. - trend coags - Currently on IV heparin - No bleeding. DVT GI prophylaxis -Augie's and SCDs -INR is supratherapeutic -PepcidI IV Access -Central line not placed due to INR of 6.5 -Continue PIV -Continue IV Heparin Overall impression: Patient is critically ill but stabilizing now with slowing slowly showing signs of some improvement. Continues to require high ventilator support, chest x-ray showing an extensive right lung consolidation. CT chest to better evaluate ordered.. Renal function improving with gentle hydration Critical Care 35 mins Donald Fong MD Mar 02, 2018 12:20
[2018-03-02] MEDS: SODIUM CHLOR 0.9% 1000 ML INJ 1,000 ML IV SCH (12:46)
[2018-03-02] MEDS: MIDAZOLAM 100 MG/100 ML INJ 100 ML IV PRN (13:30)
--- NOTE | 2018-03-02 14:55 | RADRPT ---
EXAM DATE/TIME: 03/02/2018 14:24 [facility] COMPARISON: CHEST SINGLE AP, March 02, 2018, 11:22. CT THORAX W/O CONTRAST, February 24, 2018, 22:45. INDICATIONS : Right lung consolidation /atelectasis RADIATION DOSE: 20.08 CTDIvol (mGy) MEDICAL HISTORY : Cardiovascular disease. Hypertension. Diabetes SURGICAL HISTORY : None. ENCOUNTER: Initial ACUITY: 1 day PAIN SCALE: Non-responsive LOCATION: chest TECHNIQUE: Volumetric scanning of the chest was performed. Using automated exposure control and adjustment of t he mA and/or kV according to patient size, radiation dose was kept as low as reasonably achievable to obtain optimal diagnostic quality images. DICOM format image data is available electronically for r eview and comparison. Follow-up recommendations for detected pulmonary nodules are based at a minimum on nodule size and pa tient risk factors according to Fleischner Society Guidelines. FINDINGS: The examination was performed to characterize increasing bilateral parenchymal opacities on daily john st x-ray. Comparison is also made to prior CT thorax on 02/24/18. There is bilateral pleural effusion and parenchymal consolidation involving both lower lobes with air bronchograms. The pleural effusion on the right is larger than the left measures up to 5.3 cm. The left pleural effusion measures 4.1 cm. The pleural effusions track up to the upper thorax bilateral ly. The upper lobes remain fairly well aerated. No evidence of or mediastinal adenopathy. 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 Wide windows for bony detail demonstrate the osseous structures to be intact. CONCLUSION: The bilateral mid and lower lung opacities seen on chest x-ray represent a combination of lower lobe consolidation and moderate bilateral pleural effusions, right greater than left. Ed Draper MD on March 02, 2018 at 14:49 Board Certified Radiologist. This report was verified electronically.
[2018-03-02] MEDS: PRAVASTATIN SOD 40 MG TAB PO SCH (20:51)
[2018-03-03] VITALS (17 sets, daily range): BP systolic 87–151; BP diastolic 56–87; PULSE 51–98; RESP 16–20; TEMP 98.3–99.8; O2SAT 91–97
[2018-03-03] MEDS: LACTULOSE SYRUP 20 GM/30 ML CUP OG-TUBE SCH ×5 (00:06→20:53)
[2018-03-03] MEDS: CHLORHEXIDINE GLUCONATE 2 % 1 PACK (2 CLOTHS) TOP SCH (04:00)
[2018-03-03] MEDS: INSULIN ASPART SUPPLEMENTAL SCALE SQ SCH ×6 (04:00→20:00)
[2018-03-03] MEDS: AMPICILLIN-SULBACTAM INJ 1,500 MG in SODIUM CHLORIDE 0.9% INJ 100 ML IV SCH ×4 (04:01→13:12)
[2018-03-03 05:26] LABS: HEMATOCRIT 37.4 % (39.0-51.0); HEMOGLOBIN 12.4 GM/DL (13.0-17.0); MEAN CELL VOLUME 87.1 FL (80.0-100.0); MEAN CORPUSCULAR HEMOGLOBIN 28.9 PG (27.0-34.0); MEAN CORPUSCULAR HGB CONC 33.2 % (32.0-36.0); MEAN PLATELET VOLUME 10.9 FL (7.0-11.0); PLATELET COUNT 226 TH/MM3 (150-450); WHITE BLOOD COUNT 10.8 TH/MM3 (4.0-11.0)
[2018-03-03 05:57] LABS: CREATININE 1.23 MG/DL (0.60-1.30)
[2018-03-03] MEDS: CHLORHEXIDINE 0.12% (ORAL KIT) 15 ML CUP MT SCH ×2 (08:00→20:48)
[2018-03-03] MEDS: INSULIN DETEMIR 100 UNITS/ML VIAL SQ SCH ×2 (09:00→20:50)
[2018-03-03] MEDS: SODIUM CHLORIDE 0.9% FLUSH 10 ML FLUSH IV FLUSH SCH ×2 (09:00→20:49)
[2018-03-03] MEDS: DOCUSATE SODIUM 50 MG/SENNA 8.6 MG TAB PO SCH ×2 (09:00→20:49)
[2018-03-03] MEDS: FAMOTIDINE 20 MG TAB PO SCH ×2 (09:39→20:53)
[2018-03-03] MEDS: SODIUM CHLOR 0.9% 1000 ML INJ 1,000 ML IV SCH (10:57)
--- NOTE | 2018-03-03 12:10 | HHI.CCPN ---
Subjective Remarks/Hospital Course Hospital Course: 72-year-old male with history of A. fib, hypertension, diabetes, presents for evaluation of altered mental status and fever. Patient has no complaints however he is a poor historian. He appears mildly lethargic. His states 2 days ago he began with a back pain and nausea with vomiting. He developed a fever. T-max at home was 104. He has not been acting himself since. Patient has not had a bowel movement in 3 days per his . He has had 2 episodes of hematuria 5 days ago. He has had no cough or chest congestion. There are no other symptoms to report at this time. Subjective: 02/25: s/p ureteral stents. blood and urine growing Enterococcus. clinically stabilizing. still remains afib RVR, but HR in the 130s and appears to need this HR for perfusion in sepsis. subjectively, the patient feels better than yesterday and denies complaints. states that he has not taken Flexeril in weeks and asks that we discontinue it. ROS negative. 02/26: Overnight developed increasing oxygen requirement shortness of breath currently on partial nonrebreather satting 90-91%. Currently in A. fib with RVR on amiodarone infusion heart rate 120-140s. IV Lopressor 2.5 mg push 1, digoxin 0.25 mg IV 1. Chest x-ray stat. Discontinue IV fluids. IV Lasix 40 mg 1. Enterococcus bacteremia. Discontinue cefepime start Unasyn, called the pharmacy to confirm adequate vancomycin dosing. 02/27: Large A-aO2 gradient requiring conversion to APRV/Flolan overnight. Settings adjusted today for improved CO2 removal and same mean airway pressure. Weaned to 60%. Continue APRV overnight tonight, convert to conventional tomorrow but will require PEEP at least 15-20 initially. Renal function worse - will hydrate gingerly now that oxygen diffusion has improved. 02/28: FiO2 down to 40%, but remains on APRV. Remains in A. fib with RVR. Weaned off Haider-Synephrine but remains on vasopressin. Enterococcus sensitive to ampicillin. Will discontinue vancomycin. Remains on Flolan-start weaning. Change from Bilevel to PRVC/AC 03/01: Remains critically ill but stabilizing now. APRV changed to PRVC with PEEP of 15, patient tolerating well oxygenation prieto, even though there is lung de- recruitment, increasing infiltrates. Flolan down to the last bag wean to DC. UO output improved with fluid boluses creatinine 1.35 today 03/02: Critically ill but stabilizing to slightly improving. FiO2 down to 50%, PEEP stable at 10. Chest x-ray shows consolidation involving most of right lung and left lower lobe. Check CT of the chest to evaluate better. Currently on heparin. Flolan was DC'd yesterday 03/03: Remains intubated sedated and critical. PEEP remains at 10, reduce to 8. FiO2 45%. CT of the chest yesterday showed moderate bilateral effusions and consolidation. Unable to get adequate ultrasound visualization to tap the effusion due to body habitus. Discontinue IV fluids, start intermittent diuresis with IV Lasix Objective Vital Signs Date Time Temp Pulse Resp B/P (MAP) Pulse Ox O2 Delivery O2 Flow Rate FiO2 03/03/18 11:16 96 45 03/03/18 10:00 98 03/03/18 08:00 99.8 20 87/56 (66) 102/68 (79) Intake and Output 03/03/18 03/03/18 03/04/18 08:00 16:00 00:00 Intake Total 2002 ml Output Total 625 ml Balance 1377 ml Result Diagram: 03/03/18 0440 03/03/18 0440 Imaging Last 24 hours Impressions Chest X-Ray 02/24/182103 Signed Impressions: Service Date/Time: Saturday, February 24, 2018 21:44 - CONCLUSION: Cardiomegaly. Ajit Booker MD Objective Remarks GENERAL: Elderly gentleman, critical ill, on PRVC vent mode. SKIN: Warm and dry. HEAD: Normocephalic. EYES: No scleral icterus. No injection or drainage. NECK: trachea midline. Orally intubated. CARDIOVASCULAR: irregularly irregular rhythm. afib. Heart rate varies 70-80 RESPIRATORY: Air entry equal bilaterally. Coarse sounds predominantly at the bases GASTROINTESTINAL: Abdomen soft, obese, non-tender, nondistended. MUSCULOSKELETAL: No cyanosis. Well perfused. NEURO EXAM: Sedated. RAFA. Moves extremities spontaneously. Wakes up and follows commands A/P Assessment and Plan Assessment: 72yM with severe sepsis secondary to obstructive urinary tract infection. Blood cultures growing enterococcus. Now with hypoxemic respiratory failure/acute lung injury, requiring emergency intubation and mechanical ventilation with APRV. Atrial fibrillation with RVR probably contributing to CHF. Continue amiodarone infusion. A/P Acute hypoxemic respiratory failure Acute lung injury Bibasilar consolidation and moderate pleural effusion Atrial fibrillation with RVR Probable diastolic heart failure Fluid overload -APRV changed to PRVC/AC TV 600 iT 11.3 with PEEP 15 on 02/28/18. PEEP down to 10 , FiO2 45% -Wean PEEP to 8. Start daily CPAP trials. Patient not ready for extubation -Continue amiodarone for A. fib with RVR -IV metoprolol and IV digoxin as needed Obstructive hydronephrosis -Urology Dr. South. s/p Cystoscopy with right retrograde double-J stent placement, 02/25 Septic shock-resolved Enterococcus bacteremia Urinary tract infection -Blood cultures gew enterococcus 4 out of 4 bottles. F/U blood culture 03/02 no growth to date -Sputum Gram stain growing. GNR. Start Levaquin until cultures are back -Continue Unasyn 1.5 g every 6 hours renally adjusted, increase to 3 GM as renal function is improved -Currently off all vasopressors Diabetes mellitus -Hold metformin while in the ICU -Insulin sliding scale -> increase -Bid Levemir Acute kidney injury -Due to above -Strict I's and O -Monitor creatinine and electrolyte, creatinine continues to improve with gentle hydration -IV Lasix 40 mg 1 today discontinue IV fluids Coagulopathy secondary to Coumadin with supratherapeutic INR - secondary to poor renal clearance. - trend coags - Currently on IV heparin, due to need for invasive procedures DVT GI prophylaxis -Augie's and SCDs -INR is supratherapeutic -Pepcid IV Access -Continue PIV -Continue IV Heparin Overall impression: Patient is critically ill but stabilizing now with slowly showing signs of some improvement. Continues to require high ventilator support , chest x-ray showing an extensive right lung consolidation. CT chest as above.. Renal function improving with gentle hydration Critical Care 35 mins Donald Fong MD Mar 03, 2018 12:10
[2018-03-03] MEDS: AMIODARONE INJ 450 MG in SODIUM CHLOR 0.9% (EXCEL) INJ 241 ML IV PRN (12:57)
[2018-03-03] MEDS ORDERED: POTASSIUM CHLORIDE 25 MEQ EFFERVESCENT TAB PO ONE (13:00)
[2018-03-03] MEDS: FUROSEMIDE 40 MG/4 ML VIAL IV PUSH SCH (13:11)
[2018-03-03] MEDS: DEXMEDETOMIDINE 200 MCG in NS 48 ML IV PRN ×8 (13:15→23:48)
[2018-03-03] MEDS: HEPARIN-D5W 25,000 U/250 ML 250 ML IV PRN (15:36)
[2018-03-03] MEDS: PRAVASTATIN SOD 40 MG TAB PO SCH (20:50)
[2018-03-04] VITALS (18 sets, daily range): BP systolic 127–172; BP diastolic 65–151; PULSE 54–68; RESP 18–21; TEMP 99–99.9; O2SAT 92–98
[2018-03-04] MEDS: AMPICILLIN-SULBACTAM INJ 1,500 MG in SODIUM CHLORIDE 0.9% INJ 100 ML IV SCH ×4 (00:12→20:17)
[2018-03-04] MEDS: METOPROLOL TARTRATE 5 MG/5 ML VIAL IV PUSH PRN (00:52)
[2018-03-04] MEDS: INSULIN ASPART SUPPLEMENTAL SCALE SQ SCH ×7 (04:00→23:22)
[2018-03-04] MEDS: CHLORHEXIDINE GLUCONATE 2 % 1 PACK (2 CLOTHS) TOP SCH (04:00)
[2018-03-04] MEDS: LACTULOSE SYRUP 20 GM/30 ML CUP OG-TUBE SCH ×4 (04:02→23:23)
[2018-03-04] MEDS: AMIODARONE INJ 450 MG in SODIUM CHLOR 0.9% (EXCEL) INJ 241 ML IV PRN (04:03)
[2018-03-04] MEDS: ACETAMINOPHEN 325 MG TAB PO PRN ×2 (04:24→17:04)
[2018-03-04] MEDS: HEPARIN-D5W 25,000 U/250 ML 250 ML IV PRN ×2 (06:01→20:30)
[2018-03-04 06:15] LABS: HEMATOCRIT 39.3 % (39.0-51.0); MEAN CELL VOLUME 86.4 FL (80.0-100.0); MEAN CORPUSCULAR HEMOGLOBIN 28.5 PG (27.0-34.0); MEAN PLATELET VOLUME 10.9 FL (7.0-11.0); PLATELET COUNT 243 TH/MM3 (150-450); RED BLOOD COUNT 4.55 MIL/MM3 (4.50-5.90); RED CELL DISTRIBUTION WIDTH 14.6 % (11.6-17.2); WHITE BLOOD COUNT 14.4 TH/MM3 (4.0-11.0)
[2018-03-04 06:30] LABS: ALBUMIN 2.2 GM/DL (3.4-5.0); AST (GOT) 86 U/L (15-37); BICARBONATE 23.9 MEQ/L (21.0-32.0); BLOOD UREA NITROGEN 26 MG/DL (7-18); CALCIUM 8.5 MG/DL (8.5-10.1); CHLORIDE 117 MEQ/L (98-107); CREATININE 1.27 MG/DL (0.60-1.30); GLOMERULAR FILTRATION RATE 56 ML/MIN (>89); GLUCOSE,RANDOM 193 MG/DL (74-106); MAGNESIUM 1.8 MG/DL (1.5-2.5); SODIUM (NA) 150 MEQ/L (136-145)
[2018-03-04 06:33] LABS: ALKALINE PHOSPHATASE 66 U/L (45-117); ALT (GPT) 73 U/L (12-78); TOTAL BILIRUBIN ADULT 1.5 MG/DL (0.2-1.0); TOTAL PROTEIN 6.6 GM/DL (6.4-8.2)
--- NOTE | 2018-03-04 06:44 | RADRPT ---
EXAM DATE/TIME: 03/04/2018 05:03 [facility] COMPARISON: CHEST SINGLE AP, March 02, 2018, 11:22. INDICATIONS : Shortness of breath, possible pulmonary disease. MEDICAL HISTORY : None. SURGICAL HISTORY : None. ENCOUNTER: Subsequent ACUITY: 1 week PAIN SCORE: Non-responsive. LOCATION: Bilateral chest FINDINGS: Single AP view of the chest. Endotracheal tube and nasogastric tube remain in place. Persistent bilat eral pulmonary opacity with lower lung zone predominance. Likely small bilateral pleural effusions. C ardiomediastinal silhouette unchanged. CONCLUSION: No significant interval change. Persistent bilateral pulmonary parenchymal opacity with lower lung zo ne predominance and small pleural effusions. Gee Odell MD on March 04, 2018 at 6:42 Board Certified Radiologist. This report was verified electronically.
[2018-03-04] MEDS: DEXMEDETOMIDINE 200 MCG in NS 48 ML IV PRN (06:49)
[2018-03-04] MEDS: DOCUSATE SODIUM 50 MG/SENNA 8.6 MG TAB PO SCH ×2 (08:12→21:00)
[2018-03-04] MEDS: FAMOTIDINE 20 MG TAB PO SCH ×2 (08:12→20:15)
[2018-03-04] MEDS: INSULIN DETEMIR 100 UNITS/ML VIAL SQ SCH ×2 (08:13→20:16)
[2018-03-04] MEDS: FUROSEMIDE 40 MG/4 ML VIAL IV PUSH SCH ×2 (08:13→16:49)
[2018-03-04] MEDS: CHLORHEXIDINE 0.12% (ORAL KIT) 15 ML CUP MT SCH ×2 (08:14→20:00)
[2018-03-04] MEDS: SODIUM CHLORIDE 0.9% FLUSH 10 ML FLUSH IV FLUSH SCH ×2 (08:15→20:16)
[2018-03-04] MEDS: DEXMEDETOMIDINE INJ 1,000 MCG in SODIUM CHLOR 0.9% 250 ML INJ 240 ML IV PRN ×2 (13:57→21:29)
[2018-03-04] MEDS ORDERED: METOLAZONE 2.5 MG TAB PO ONE (16:15)
[2018-03-04] MEDS ORDERED: POTASSIUM CHLORIDE 25 MEQ EFFERVESCENT TAB PO ONE (16:15)
--- NOTE | 2018-03-04 16:19 | HHI.CCPN ---
Subjective Remarks/Hospital Course Hospital Course: 72-year-old male with history of A. fib, hypertension, diabetes, presents for evaluation of altered mental status and fever. Patient has no complaints however he is a poor historian. He appears mildly lethargic. His states 2 days ago he began with a back pain and nausea with vomiting. He developed a fever. T-max at home was 104. He has not been acting himself since. Patient has not had a bowel movement in 3 days per his . He has had 2 episodes of hematuria 5 days ago. He has had no cough or chest congestion. There are no other symptoms to report at this time. Subjective: 02/25: s/p ureteral stents. blood and urine growing Enterococcus. clinically stabilizing. still remains afib RVR, but HR in the 130s and appears to need this HR for perfusion in sepsis. subjectively, the patient feels better than yesterday and denies complaints. states that he has not taken Flexeril in weeks and asks that we discontinue it. ROS negative. 02/26: Overnight developed increasing oxygen requirement shortness of breath currently on partial nonrebreather satting 90-91%. Currently in A. fib with RVR on amiodarone infusion heart rate 120-140s. IV Lopressor 2.5 mg push 1, digoxin 0.25 mg IV 1. Chest x-ray stat. Discontinue IV fluids. IV Lasix 40 mg 1. Enterococcus bacteremia. Discontinue cefepime start Unasyn, called the pharmacy to confirm adequate vancomycin dosing. 02/27: Large A-aO2 gradient requiring conversion to APRV/Flolan overnight. Settings adjusted today for improved CO2 removal and same mean airway pressure. Weaned to 60%. Continue APRV overnight tonight, convert to conventional tomorrow but will require PEEP at least 15-20 initially. Renal function worse - will hydrate gingerly now that oxygen diffusion has improved. 02/28: FiO2 down to 40%, but remains on APRV. Remains in A. fib with RVR. Weaned off Haider-Synephrine but remains on vasopressin. Enterococcus sensitive to ampicillin. Will discontinue vancomycin. Remains on Flolan-start weaning. Change from Bilevel to PRVC/AC 03/01: Remains critically ill but stabilizing now. APRV changed to PRVC with PEEP of 15, patient tolerating well oxygenation prieto, even though there is lung de- recruitment, increasing infiltrates. Flolan down to the last bag wean to DC. UO output improved with fluid boluses creatinine 1.35 today 03/02: Critically ill but stabilizing to slightly improving. FiO2 down to 50%, PEEP stable at 10. Chest x-ray shows consolidation involving most of right lung and left lower lobe. Check CT of the chest to evaluate better. Currently on heparin. Flolan was DC'd yesterday 03/03: Remains intubated sedated and critical. PEEP remains at 10, reduce to 8. FiO2 45%. CT of the chest yesterday showed moderate bilateral effusions and consolidation. Unable to get adequate ultrasound visualization to tap the effusion due to body habitus. Discontinue IV fluids, start intermittent diuresis with IV Lasix 03/04: failed SBT immediately: became tachypneic and in acute distress. some diuresis yesterday, but not enough diuresis to make improvements in clinical volume overload. sodium uptrends. wbc uptrending, but afebrile. Objective Vital Signs Date Time Temp Pulse Resp B/P (MAP) Pulse Ox O2 Delivery O2 Flow Rate FiO2 03/04/18 14:00 64 03/04/18 12:20 95 45 03/04/18 12:00 99.0 20 151/72 (98) 172/85 (114) Intake and Output 03/04/18 03/04/18 03/05/18 08:00 16:00 00:00 Intake Total 1064 ml Output Total 650 ml Balance 414 ml Result Diagram: 03/04/18 0520 03/04/18 0520 Imaging Last 24 hours Impressions Chest X-Ray 02/24/182103 Signed Impressions: Service Date/Time: Saturday, February 24, 2018 21:44 - CONCLUSION: Cardiomegaly. Ajit Booker MD Objective Remarks GENERAL: Elderly gentleman, critical ill, on PRVC vent mode. SKIN: Warm and dry. HEAD: Normocephalic. EYES: No scleral icterus. No injection or drainage. NECK: trachea midline. Orally intubated. CARDIOVASCULAR: irregularly irregular rhythm. afib. Heart rate varies 70-80 RESPIRATORY: Air entry equal bilaterally. Coarse sounds predominantly at the bases GASTROINTESTINAL: Abdomen soft, obese, non-tender, nondistended. MUSCULOSKELETAL: No cyanosis. Well perfused. NEURO EXAM: Sedated. RAFA. Moves extremities spontaneously. Wakes up and follows commands A/P Assessment and Plan Assessment: 72yM with severe sepsis secondary to obstructive urinary tract infection. Blood cultures growing enterococcus. Now with hypoxemic respiratory failure/acute lung injury, requiring emergency intubation and mechanical ventilation with APRV. Atrial fibrillation with RVR probably contributing to CHF. transition to PO amio. increased forced diuresis. remains critically ill: multiple organs still dysfunctional and life-threatening. pulmonary function still severely dysfunctional and failing CPAP immediately. A/P Acute hypoxemic respiratory failure Acute lung injury Bibasilar consolidation and moderate pleural effusion Atrial fibrillation with RVR Probable diastolic heart failure Acute intravascular volume overload -Wean PEEP to 5. continue daily CPAP trials. Patient not ready for extubation -Continue amiodarone for A. fib with RVR -IV metoprolol and IV digoxin as needed Obstructive hydronephrosis -Urology Dr. South. s/p Cystoscopy with right retrograde double-J stent placement, 02/25 Septic shock-resolved Enterococcus bacteremia Urinary tract infection -Blood cultures gew enterococcus 4 out of 4 bottles. F/U blood culture 03/02 no growth to date -Sputum Gram stain growing. GNR. Start Levaquin until cultures are back -Continue Unasyn 1.5 g every 6 hours renally adjusted, increase to 3 GM as renal function is improved -Currently off all vasopressors Diabetes mellitus -Hold metformin while in the ICU -Insulin sliding scale -> increase -Bid Levemir Acute kidney injury -Due to above -Strict I's and O -Monitor creatinine and electrolyte, creatinine continues to improve with gentle hydration Acute intravascular volume overload - lasix increase to 40mg iv q8h - add one-time dose metolazone 2.5mg po. Hypomagnesemia Hypokalemia - 25meq kcl po - 2gm mgso4 iv Coagulopathy secondary to Coumadin with supratherapeutic INR - secondary to poor renal clearance. - trend coags - Currently on IV heparin, due to need for invasive procedures DVT GI prophylaxis -Augie's and SCDs -INR is supratherapeutic -Pepcid IV Access -Continue PIV -Continue IV Heparin Overall impression: Patient is critically ill but stabilizing now with slowly showing signs of some improvement. Continues to require high ventilator support , chest x-ray showing an extensive right lung consolidation. CT chest as above.. forced diuresis and daily SBTs. Critical Care 31 mins, exclusive of separately billable procedures. Thom Lake MD Mar 04, 2018 16:19
[2018-03-04] MEDS: AMIODARONE 200 MG TAB PO SCH (16:49)
[2018-03-04] MEDS: MAGNESIUM SULFATE 1 GM PREMIX 100 ML IV SCH ×2 (16:50→17:04)
[2018-03-04] MEDS: FREE WATER G-TUBE SCH (20:00)
[2018-03-04] MEDS: PRAVASTATIN SOD 40 MG TAB PO SCH (20:15)
[2018-03-05] VITALS (24 sets, daily range): BP systolic 6–166; BP diastolic 5–95; PULSE 49–61; RESP 8–23; TEMP 99.1–101.2; O2SAT 88–98
[2018-03-05] MEDS: FUROSEMIDE 40 MG/4 ML VIAL IV PUSH SCH ×2 (00:02→08:29)
[2018-03-05] MEDS: AMPICILLIN-SULBACTAM INJ 1,500 MG in SODIUM CHLORIDE 0.9% INJ 100 ML IV SCH ×4 (01:43→19:27)
[2018-03-05] MEDS: FREE WATER G-TUBE SCH ×6 (04:00→15:41)
[2018-03-05] MEDS: CHLORHEXIDINE GLUCONATE 2 % 1 PACK (2 CLOTHS) TOP SCH (04:00)
[2018-03-05] MEDS: DEXMEDETOMIDINE INJ 1,000 MCG in SODIUM CHLOR 0.9% 250 ML INJ 240 ML IV PRN ×3 (04:16→19:27)
[2018-03-05] MEDS: INSULIN ASPART SUPPLEMENTAL SCALE SQ SCH ×5 (04:20→19:27)
[2018-03-05] MEDS: AMIODARONE 200 MG TAB PO SCH ×2 (04:20→20:28)
[2018-03-05] MEDS: LACTULOSE SYRUP 20 GM/30 ML CUP OG-TUBE SCH ×3 (05:35→15:41)
[2018-03-05] MEDS: CHLORHEXIDINE 0.12% (ORAL KIT) 15 ML CUP MT SCH ×2 (08:25→19:27)
[2018-03-05] MEDS: SODIUM CHLORIDE 0.9% FLUSH 10 ML FLUSH IV FLUSH SCH ×2 (08:26→20:19)
[2018-03-05] MEDS: FAMOTIDINE 20 MG TAB PO SCH ×2 (08:26→20:19)
[2018-03-05] MEDS: INSULIN DETEMIR 100 UNITS/ML VIAL SQ SCH ×2 (08:28→20:19)
[2018-03-05] MEDS: DOCUSATE SODIUM 50 MG/SENNA 8.6 MG TAB PO SCH ×2 (08:29→20:19)
[2018-03-05] MEDS: HEPARIN-D5W 25,000 U/250 ML 250 ML IV PRN (11:30)
[2018-03-05 11:31] LABS: BICARBONATE 29.2 MEQ/L (21.0-32.0); CALCIUM 8.4 MG/DL (8.5-10.1); CREATININE 1.31 MG/DL (0.60-1.30)
[2018-03-05 13:34] LABS: HEMATOCRIT 40.7 % (39.0-51.0); HEMOGLOBIN 13.4 GM/DL (13.0-17.0); MEAN CELL VOLUME 85.1 FL (80.0-100.0); MEAN CORPUSCULAR HEMOGLOBIN 28.1 PG (27.0-34.0); MEAN PLATELET VOLUME 10.4 FL (7.0-11.0); PLATELET COUNT 233 TH/MM3 (150-450); RED BLOOD COUNT 4.78 MIL/MM3 (4.50-5.90); RED CELL DISTRIBUTION WIDTH 14.2 % (11.6-17.2); WHITE BLOOD COUNT 15.8 TH/MM3 (4.0-11.0)
[2018-03-05] MEDS ORDERED: RESP: ALBUTEROL 2.5 MG/3 ML NEB (PRN) NEB (15:30)
[2018-03-05] MEDS ORDERED: POTASSIUM CHLORIDE 20 MEQ PWD PACKET NG ONE (15:30)
[2018-03-05] MEDS ORDERED: ACETAMINOPHEN 650 MG/20.3 ML UDC NG PRN (15:30)
[2018-03-05] MEDS ORDERED: hydrALAZINE HCL 20 MG/ML VIAL IV PUSH PRN (15:45)
--- NOTE | 2018-03-05 15:45 | HHI.CCPN ---
Subjective Remarks/Hospital Course Hospital Course: 72-year-old male with history of A. fib, hypertension, diabetes, presents for evaluation of altered mental status and fever. Patient has no complaints however he is a poor historian. He appears mildly lethargic. His states 2 days ago he began with a back pain and nausea with vomiting. He developed a fever. T-max at home was 104. He has not been acting himself since. Patient has not had a bowel movement in 3 days per his . He has had 2 episodes of hematuria 5 days ago. He has had no cough or chest congestion. There are no other symptoms to report at this time. 02/25: s/p ureteral stents. blood and urine growing Enterococcus. clinically stabilizing. still remains afib RVR, but HR in the 130s and appears to need this HR for perfusion in sepsis. subjectively, the patient feels better than yesterday and denies complaints. states that he has not taken Flexeril in weeks and asks that we discontinue it. ROS negative. 02/26: Overnight developed increasing oxygen requirement shortness of breath currently on partial nonrebreather satting 90-91%. Currently in A. fib with RVR on amiodarone infusion heart rate 120-140s. IV Lopressor 2.5 mg push 1, digoxin 0.25 mg IV 1. Chest x-ray stat. Discontinue IV fluids. IV Lasix 40 mg 1. Enterococcus bacteremia. Discontinue cefepime start Unasyn, called the pharmacy to confirm adequate vancomycin dosing. 02/27: Large A-aO2 gradient requiring conversion to APRV/Flolan overnight. Settings adjusted today for improved CO2 removal and same mean airway pressure. Weaned to 60%. Continue APRV overnight tonight, convert to conventional tomorrow but will require PEEP at least 15-20 initially. Renal function worse - will hydrate gingerly now that oxygen diffusion has improved. 02/28: FiO2 down to 40%, but remains on APRV. Remains in A. fib with RVR. Weaned off Haider-Synephrine but remains on vasopressin. Enterococcus sensitive to ampicillin. Will discontinue vancomycin. Remains on Flolan-start weaning. Change from Bilevel to PRVC/AC 03/01: Remains critically ill but stabilizing now. APRV changed to PRVC with PEEP of 15, patient tolerating well oxygenation prieto, even though there is lung de- recruitment, increasing infiltrates. Flolan down to the last bag wean to DC. UO output improved with fluid boluses creatinine 1.35 today 03/02: Critically ill but stabilizing to slightly improving. FiO2 down to 50%, PEEP stable at 10. Chest x-ray shows consolidation involving most of right lung and left lower lobe. Check CT of the chest to evaluate better. Currently on heparin. Flolan was DC'd yesterday 03/03: Remains intubated sedated and critical. PEEP remains at 10, reduce to 8. FiO2 45%. CT of the chest yesterday showed moderate bilateral effusions and consolidation. Unable to get adequate ultrasound visualization to tap the effusion due to body habitus. Discontinue IV fluids, start intermittent diuresis with IV Lasix 03/04: failed SBT immediately: became tachypneic and in acute distress. some diuresis yesterday, but not enough diuresis to make improvements in clinical volume overload. sodium uptrends. wbc uptrending, but afebrile. Subjective: 03/05: Off all vasopressors. Afebrile. Forced diuresis -5.5 L. Currently on CPAP trial 12/07 at 45%. Arousable and follows commands. In sinus bradycardia. Objective Vital Signs Date Time Temp Pulse Resp B/P (MAP) Pulse Ox O2 Delivery O2 Flow Rate FiO2 03/05/18 14:16 94 45 03/05/18 12:00 53 03/05/18 12:00 11 117/86 (96) 03/05/18 08:01 99.4 Intake and Output 03/05/18 03/05/18 03/06/18 08:00 16:00 00:00 Intake Total 1004 ml Output Total 4050 ml 3300 ml Balance -3046 ml -3300 ml Result Diagram: 03/05/18 1303 03/05/18 1024 Other Results Microbiology Date/Time Source Procedure Growth Status 03/02/18 16:37 Blood Peripheral Aerobic Blood Culture - Preliminary NO GROWTH IN 3 DAYS Resulted 03/02/18 16:37 Blood Peripheral Anaerobic Blood Culture - Preliminary NO GROWTH IN 3 DAYS Resulted 03/02/18 17:40 Sputum Endotracheal Gram Stain - Final Complete 03/02/18 17:40 Sputum Endotracheal Sputum Culture - Final LIGHT GROWTH NORMAL RESPIRATORY RAFIQ Complete 02/24/18 21:05 Urine Catheterized Urine Urine Culture - Final 10-50,000 CFU/ML MIXED GRAM POSITIVE ... Complete Imaging Last Impressions Chest X-Ray 03/04/18 0600 Signed Impressions: Service Date/Time: Sunday, March 04, 2018 05:03 - CONCLUSION: No significant interval change. Persistent bilateral pulmonary parenchymal opacity with lower lung zone predominance and small pleural effusions. Gee Odell MD Chest CT 03/02/18 0000 Signed Impressions: Service Date/Time: February 14:24 - CONCLUSION: The bilateral mid and lower lung opacities seen on chest x-ray represent a combination of lower lobe consolidation and moderate bilateral pleural effusions, right greater than left. Ed Draper MD Abdomen X-Ray 02/25/18 0000 Signed Impressions: Service Date/Time: Sunday, February 25, 2018 10:46 - CONCLUSION: Placement of right pigtail stent catheter with the possible ureteral calculus along the proximal catheter. Van Minor MD Abdomen/Pelvis CT 02/24/18 0000 Signed Impressions: Service Date/Time: Saturday, February 24, 2018 22:45 - CONCLUSION: Mild hydronephrosis of the right kidney with a 4 x 6 mm proximal ureteral stone. Multiple cysts throughout both kidneys. Thomas Carter MD Procedures Right retrograde double-J stent placement 6 [place]uv[place] 26 cm Objective Remarks GENERAL: Elderly gentleman, critical ill, on PRVC vent mode. SKIN: Warm and dry. HEAD: Normocephalic. EYES: No scleral icterus. No injection or drainage. NECK: trachea midline. Orally intubated. CARDIOVASCULAR: irregularly irregular rhythm. afib. Heart rate varies 70-80 RESPIRATORY: Air entry equal bilaterally. Coarse sounds predominantly at the bases GASTROINTESTINAL: Abdomen soft, obese, non-tender, nondistended. MUSCULOSKELETAL: No cyanosis. Well perfused. NEURO EXAM: Sedated. RAFA. Moves extremities spontaneously. Wakes up and follows commands Urinary Catheter: Yes Assessment to: Continue Barron insert reason: Prolonged Immobilization Vascular Central Line Catheter: No Assessment to: Continue A/P Assessment and Plan Neuro/Psych: Currently on dexmedetomidine 0.8 mcg/kg/min for sedation RASS 0 Daily sedation vacation Acetaminophen 650 mg p.o. every 6 hours as needed fever CV: Atrial fibrillation currently in sinus bradycardia History of hypertension Acute systolic heart failure question Dyslipidemia Holding home medications metoprolol succinate/hydrochlorothiazide 100 mg/12.5 mg 1 tablet daily, amlodipine 2.5 mg daily for hypertension Holding losartan potassium 50 mg p.o. twice daily Continue amiodarone 2 mg by tube twice daily Currently free water 100 cc every 6 hours Aggressive diuresis with furosemide 40 mg IV every 8 hours. Decrease to daily Echocardiogram 02/28 revealed EF 40%. LVH. Resp: Acute hypoxemic respiratory failure Bilateral pleural effusions PRVC - PSV 12/07 of 45% Ventilator bundle Albuterol/ipratropium aerosols every 6 hours with albuterol aerosols every 2 hours as needed dyspnea Spontaneous breathing trials daily Follow-up chest x-ray in a.m. 03/06 Continue with forced diuresis GI: Elevated AST Hypoalbuminemia Continue tube feeds Famotidine for GI prophylaxis Docusate sodium/senna 1 tablet twice daily for bowel regimen Lactulose 30 cc every 6 hours for bowel regimen : BPH Right UPJ calculus status post right retrograde JJ stent placement 02/25 #6 [place] by [address] [place] Holding Silodosin 8 mg daily for BPH Holding solifenacin 10 mg p.o. daily for overactive bladder Maintain Barron catheter Endo: Hyperglycemia of critical illness Diabetes Mellitus type II Continue insulin 8 units subcu twice daily with NovoLog sliding scale insulin every 4 hours/high regimen Renal: Creatinine currently within normal limits Monitor urine output Heme: Leukocytosis Chronic warfarin use Currently on heparin drip at 1800 units an hour She received warfarin 10 mg by mouth daily Monitor CBC daily. Follow trend ID: Enterococcus faecalis sepsis Currently on ampicillin/sulbactam 1.5 g IV every 6 hours Pertinent cultures 02/24 -blood cultures 2 -Enterococcus faecalis Blood cultures 03/02 no growth to date MSK: PT evaluate and treat FEN: Hypokalemia Access -Utilize peripheral IV. Central line if indicated Prophylaxis -GI -famotidine -DVT -SCD/heparin drip Level 3 follow-up Norm Mcclendon MD Mar 05, 2018 15:45
[2018-03-05] MEDS: RESP: ALBUTEROL 2.5 MG/IPRATROPIUM 0.5 MG NEB (SCH) NEB ×2 (16:00→19:56)
--- NOTE | 2018-03-05 18:02 | RADRPT ---
EXAM DATE/TIME: 03/05/2018 17:43 [facility] COMPARISON: CHEST SINGLE AP, March 04, 2018, 5:03. INDICATIONS : ET tube placement. MEDICAL HISTORY : None. SURGICAL HISTORY : None. ENCOUNTER: Subsequent ACUITY: 1 week PAIN SCORE: 0/10 LOCATION: Bilateral chest FINDINGS: Basilar consolidation with small moderate right and small left pleural effusions are again noted and not significantly changed. No pneumothorax seen. Endotracheal tube has been pulled back in the interim, now at the level of the thoracic inlet roughly 9 cm above the irene. Nasogastric tube continues to course into the stomach. CONCLUSION: Endotracheal tube tip is currently at the thoracic inlet. Basilar consolidation with small to moderat e right and small left pleural effusions not significantly changed. Ajit Trejo MD on March 05, 2018 at 17:58 Board Certified Radiologist. This report was verified electronically.
[2018-03-05] MEDS: PRAVASTATIN SOD 40 MG TAB PO SCH (20:19)
[2018-03-05] MEDS: ARTIFICIAL TEARS OPTH SOLN 15 ML BTL EACH EYE SCH (22:00)
[2018-03-06] VITALS (17 sets, daily range): BP systolic 107–163; BP diastolic 55–79; PULSE 43–75; RESP 16–30; TEMP 98.1–98.8; O2SAT 92–100
[2018-03-06] MEDS: HEPARIN-D5W 25,000 U/250 ML 250 ML IV PRN ×2 (00:11→15:06)
[2018-03-06] MEDS: INSULIN ASPART SUPPLEMENTAL SCALE SQ SCH ×6 (00:18→20:00)
[2018-03-06] MEDS: AMPICILLIN-SULBACTAM INJ 1,500 MG in SODIUM CHLORIDE 0.9% INJ 100 ML IV SCH ×4 (03:37→21:11)
[2018-03-06] MEDS: CHLORHEXIDINE GLUCONATE 2 % 1 PACK (2 CLOTHS) TOP SCH (03:52)
[2018-03-06] MEDS: RESP: ALBUTEROL 2.5 MG/IPRATROPIUM 0.5 MG NEB (SCH) NEB ×4 (03:54→22:00)
[2018-03-06] MEDS: DEXMEDETOMIDINE INJ 1,000 MCG in SODIUM CHLOR 0.9% 250 ML INJ 240 ML IV PRN (04:59)
--- NOTE | 2018-03-06 05:06 | RADRPT ---
EXAM DATE/TIME: 03/06/2018 03:23 [facility] COMPARISON: CHEST SINGLE AP, March 05, 2018, 17:43. INDICATIONS : Shortness of breath,possible pulmonary disease. MEDICAL HISTORY : None. SURGICAL HISTORY : None. ENCOUNTER: Subsequent ACUITY: 1 week PAIN SCORE: Non-responsive. LOCATION: Bilateral chest FINDINGS: A single view of the chest demonstrates bibasilar densities greater right lower lobe. Probable right pleural effusion. Endotracheal tube with tip 9 cm above the irene. Nasogastric tube with tip in stom ach. Osseous structures are intact. CONCLUSION: Stable bibasilar densities. Oscar Diallo MD on March 06, 2018 at 5:03 Board Certified Radiologist. This report was verified electronically.
[2018-03-06 05:23] LABS: HEMATOCRIT 37.7 % (39.0-51.0); HEMOGLOBIN 12.5 GM/DL (13.0-17.0); MEAN CELL VOLUME 85.4 FL (80.0-100.0); MEAN CORPUSCULAR HEMOGLOBIN 28.2 PG (27.0-34.0); MEAN PLATELET VOLUME 10.6 FL (7.0-11.0); PLATELET COUNT 197 TH/MM3 (150-450); RED BLOOD COUNT 4.41 MIL/MM3 (4.50-5.90); WHITE BLOOD COUNT 13.1 TH/MM3 (4.0-11.0)
[2018-03-06 05:32] LABS: CALCIUM 8.2 MG/DL (8.5-10.1); CREATININE 1.14 MG/DL (0.60-1.30)
[2018-03-06] MEDS: LACTULOSE SYRUP 20 GM/30 ML CUP OG-TUBE SCH ×4 (06:00→16:40)
[2018-03-06] MEDS: FREE WATER G-TUBE SCH ×2 (06:00)
[2018-03-06] MEDS: ARTIFICIAL TEARS OPTH SOLN 15 ML BTL EACH EYE SCH ×2 (06:18→13:48)
[2018-03-06] MEDS: SODIUM CHLORIDE 0.9% FLUSH 10 ML FLUSH IV FLUSH SCH ×2 (08:37→20:48)
[2018-03-06] MEDS: DOCUSATE SODIUM 50 MG/SENNA 8.6 MG TAB PO SCH ×2 (08:37→20:49)
[2018-03-06] MEDS: AMIODARONE 200 MG TAB PO SCH ×2 (08:37→20:48)
[2018-03-06] MEDS: FAMOTIDINE 20 MG TAB PO SCH ×2 (08:38→20:51)
[2018-03-06] MEDS: CHLORHEXIDINE 0.12% (ORAL KIT) 15 ML CUP MT SCH ×2 (08:38→20:48)
[2018-03-06] MEDS ORDERED: FUROSEMIDE 40 MG/4 ML VIAL IV PUSH SCH (09:00)
[2018-03-06] MEDS: INSULIN DETEMIR 100 UNITS/ML VIAL SQ SCH (09:00)
[2018-03-06] MEDS ORDERED: POTASSIUM CHLORIDE 20 MEQ PWD PACKET OG-TUBE ONE (09:45)
--- NOTE | 2018-03-06 12:04 | HHI.CCPN ---
Subjective Remarks/Hospital Course Hospital Course: 72-year-old male with history of A. fib, hypertension, diabetes, presents for evaluation of altered mental status and fever. Patient has no complaints however he is a poor historian. He appears mildly lethargic. His states 2 days ago he began with a back pain and nausea with vomiting. He developed a fever. T-max at home was 104. He has not been acting himself since. Patient has not had a bowel movement in 3 days per his . He has had 2 episodes of hematuria 5 days ago. He has had no cough or chest congestion. There are no other symptoms to report at this time. 02/25: s/p ureteral stents. blood and urine growing Enterococcus. clinically stabilizing. still remains afib RVR, but HR in the 130s and appears to need this HR for perfusion in sepsis. subjectively, the patient feels better than yesterday and denies complaints. states that he has not taken Flexeril in weeks and asks that we discontinue it. ROS negative. 02/26: Overnight developed increasing oxygen requirement shortness of breath currently on partial nonrebreather satting 90-91%. Currently in A. fib with RVR on amiodarone infusion heart rate 120-140s. IV Lopressor 2.5 mg push 1, digoxin 0.25 mg IV 1. Chest x-ray stat. Discontinue IV fluids. IV Lasix 40 mg 1. Enterococcus bacteremia. Discontinue cefepime start Unasyn, called the pharmacy to confirm adequate vancomycin dosing. 02/27: Large A-aO2 gradient requiring conversion to APRV/Flolan overnight. Settings adjusted today for improved CO2 removal and same mean airway pressure. Weaned to 60%. Continue APRV overnight tonight, convert to conventional tomorrow but will require PEEP at least 15-20 initially. Renal function worse - will hydrate gingerly now that oxygen diffusion has improved. 02/28: FiO2 down to 40%, but remains on APRV. Remains in A. fib with RVR. Weaned off Haider-Synephrine but remains on vasopressin. Enterococcus sensitive to ampicillin. Will discontinue vancomycin. Remains on Flolan-start weaning. Change from Bilevel to PRVC/AC 03/01: Remains critically ill but stabilizing now. APRV changed to PRVC with PEEP of 15, patient tolerating well oxygenation prieto, even though there is lung de- recruitment, increasing infiltrates. Flolan down to the last bag wean to DC. UO output improved with fluid boluses creatinine 1.35 today 03/02: Critically ill but stabilizing to slightly improving. FiO2 down to 50%, PEEP stable at 10. Chest x-ray shows consolidation involving most of right lung and left lower lobe. Check CT of the chest to evaluate better. Currently on heparin. Flolan was DC'd yesterday 03/03: Remains intubated sedated and critical. PEEP remains at 10, reduce to 8. FiO2 45%. CT of the chest yesterday showed moderate bilateral effusions and consolidation. Unable to get adequate ultrasound visualization to tap the effusion due to body habitus. Discontinue IV fluids, start intermittent diuresis with IV Lasix 03/04: failed SBT immediately: became tachypneic and in acute distress. some diuresis yesterday, but not enough diuresis to make improvements in clinical volume overload. sodium uptrends. wbc uptrending, but afebrile. 03/05: Off all vasopressors. Afebrile. Forced diuresis -5.5 L. Currently on CPAP trial 12/07 at 45%. Arousable and follows commands. In sinus bradycardia. Subjective: 03/06: Extubated today without complication. Currently 4 L nasal cannula. Speech therapy to evaluate. Denies shortness of breath. Objective Vital Signs Date Time Temp Pulse Resp B/P (MAP) Pulse Ox O2 Delivery O2 Flow Rate FiO2 03/06/18 09:54 94 Nasal Cannula 4 03/06/18 08:15 40 03/06/18 06:00 49 03/06/18 04:00 98.7 16 163/79 (107) Intake and Output 03/06/18 03/06/18 03/06/18 07:59 15:59 23:59 Intake Total 1275 ml Output Total 2200 ml Balance -925 ml Result Diagram: 03/06/1841903/06/18419 Other Results Microbiology Date/Time Source Procedure Growth Status 03/02/18 16:37 Blood Peripheral Aerobic Blood Culture - Preliminary NO GROWTH IN 4 DAYS Resulted 03/02/18 16:37 Blood Peripheral Anaerobic Blood Culture - Preliminary NO GROWTH IN 4 DAYS Resulted 03/02/18 17:40 Sputum Endotracheal Gram Stain - Final Complete 03/02/18 17:40 Sputum Endotracheal Sputum Culture - Final LIGHT GROWTH NORMAL RESPIRATORY RAFIQ Complete 02/24/18 21:05 Urine Catheterized Urine Urine Culture - Final 10-50,000 CFU/ML MIXED GRAM POSITIVE ... Complete Imaging Last Impressions Chest X-Ray 03/06/18 0600 Signed Impressions: Service Date/Time: Tuesday, March 06, 2018 03:23 - CONCLUSION: Stable bibasilar densities. Oscar Diallo MD Chest CT 03/02/18 0000 Signed Impressions: Service Date/Time: February 14:24 - CONCLUSION: The bilateral mid and lower lung opacities seen on chest x-ray represent a combination of lower lobe consolidation and moderate bilateral pleural effusions, right greater than left. Ed Draper MD Abdomen X-Ray 02/25/18 0000 Signed Impressions: Service Date/Time: Sunday, February 25, 2018 10:46 - CONCLUSION: Placement of right pigtail stent catheter with the possible ureteral calculus along the proximal catheter. Van Minor MD Abdomen/Pelvis CT 02/24/18 0000 Signed Impressions: Service Date/Time: Saturday, February 24, 2018 22:45 - CONCLUSION: Mild hydronephrosis of the right kidney with a 4 x 6 mm proximal ureteral stone. Multiple cysts throughout both kidneys. Thomas Carter MD Procedures Right retrograde double-J stent placement 6 Irish 26 cm Objective Remarks GENERAL: 72-year-old male currently nasal cannula in no acute distress SKIN: Warm and dry. HEAD: Normocephalic. EYES: No scleral icterus. No injection or drainage. NECK: trachea midline. Supple CARDIOVASCULAR: irregularly irregular rhythm. afib. S1, S2 no S4. RESPIRATORY: Air entry equal bilaterally. Coarse sounds predominantly at the bases GASTROINTESTINAL: Abdomen soft, obese, non-tender, nondistended. MUSCULOSKELETAL: No cyanosis. Well perfused. Trace to 1+ bilateral lower extremity edema NEURO EXAM: Cranial nerves II through XII grossly intact. Strength is equal and symmetric bilaterally. Normal sensation Urinary Catheter: Yes Assessment to: Continue Barron insert reason: ICU Pt Getting Diuretics Vascular Central Line Catheter: No Assessment to: Continue A/P Assessment and Plan Neuro/Psych: Acetaminophen 650 mg p.o. every 6 hours as needed fever Hydrocodone/acetaminophen 5/325 1 tablet every 4 hours as needed pain 1 through 5 Morphine sulfate 2 mg IV every 2 hours as needed pain 6-10 CV: Atrial fibrillation currently in sinus bradycardia History of hypertension Acute systolic heart failure question Dyslipidemia Holding home medications metoprolol succinate/hydrochlorothiazide 100 mg/12.5 mg 1 tablet daily, amlodipine 2.5 mg daily for hypertension Holding losartan potassium 50 mg p.o. twice daily Continue amiodarone 200 mg twice daily Continue diuresis furosemide 40 mg IV daily Echocardiogram 02/28 revealed EF 40%. LVH. Resp: Acute hypoxemic respiratory failure -extubated 03/06 Bilateral pleural effusions Nasal cannula to maintain saturations greater than equal to 92% Incentive spirometry while awake Albuterol/ipratropium aerosols every 6 hours with albuterol aerosols every 2 hours as needed dyspnea PEP every 6 hours Follow-up chest x-ray in a.m. 03/07 Continue with forced diuresis GI: Elevated AST Hypoalbuminemia Speech therapy to evaluate and treat Famotidine for GI prophylaxis Docusate sodium/senna 1 tablet twice daily for bowel regimen Lactulose 30 cc every 6 hours for bowel regimen : BPH Right UPJ calculus status post right retrograde JJ stent placement 02/25 #6 [place] by [address] [place] Holding Silodosin 8 mg daily for BPH Holding solifenacin 10 mg p.o. daily for overactive bladder Maintain Barron catheter Endo: Hyperglycemia of critical illness Diabetes Mellitus type II Holding insulin detemir 8 units subcu twice daily but will continue with with NovoLog sliding scale insulin every 4 hours/high regimen until speech therapy evaluate Renal: Creatinine currently within normal limits Monitor urine output Heme: Leukocytosis Chronic warfarin use Currently on heparin drip at 1800 units an hour Previously received warfarin 10 mg by mouth daily Monitor CBC daily. Follow trend ID: Enterococcus faecalis sepsis Currently on ampicillin/sulbactam 1.5 g IV every 6 hours Pertinent cultures 02/24 -blood cultures 2 -Enterococcus faecalis Blood cultures 03/02 no growth to date MSK: PT evaluate and treat FEN: Hypokalemia Access -Utilize peripheral IV. Central line if indicated Prophylaxis -GI -famotidine -DVT -SCD/heparin drip Level 3 follow-up Norm Mcclendon MD Mar 06, 2018 12:04
[2018-03-06] MEDS ORDERED: MORPHINE SULFATE 2 MG/ML SYRINGE IV PUSH PRN (12:15)
[2018-03-06] MEDS ORDERED: ACETAMINOPHEN/HYDROcodone 325 MG/5 MG TAB PO PRN (12:15)
[2018-03-06] MEDS ORDERED: POTASSIUM CHLOR 10 MEQ PREMIX 100 ML IV SCH (12:30)
[2018-03-06] MEDS ORDERED: POTASSIUM CHLORIDE 20 MEQ CONTROLLED RELEASE TAB PO ONE (20:30)
[2018-03-06] MEDS: PRAVASTATIN SOD 40 MG TAB PO SCH (20:48)
[2018-03-07] VITALS (15 sets, daily range): BP systolic 123–137; BP diastolic 61–73; PULSE 73–87; RESP 20–39; TEMP 98.2–99; O2SAT 94–99
[2018-03-07] MEDS: LACTULOSE SYRUP 20 GM/30 ML CUP OG-TUBE SCH ×5 (00:38→23:38)
[2018-03-07] MEDS: ARTIFICIAL TEARS OPTH SOLN 15 ML BTL EACH EYE SCH ×2 (00:38→07:03)
[2018-03-07] MEDS: TEMAZEPAM 15 MG CAP PO PRN ×2 (00:40→23:37)
[2018-03-07] MEDS: AMPICILLIN-SULBACTAM INJ 1,500 MG in SODIUM CHLORIDE 0.9% INJ 100 ML IV SCH ×4 (02:30→20:15)
[2018-03-07] MEDS: HEPARIN-D5W 25,000 U/250 ML 250 ML IV PRN ×2 (03:56→16:17)
[2018-03-07] MEDS: CHLORHEXIDINE GLUCONATE 2 % 1 PACK (2 CLOTHS) TOP SCH (04:00)
[2018-03-07] MEDS: INSULIN ASPART SUPPLEMENTAL SCALE SQ SCH ×6 (04:00→20:13)
[2018-03-07] MEDS: RESP: ALBUTEROL 2.5 MG/IPRATROPIUM 0.5 MG NEB (SCH) NEB ×4 (04:15→21:18)
--- NOTE | 2018-03-07 04:17 | RADRPT ---
EXAM DATE/TIME: 03/07/2018 03:04 [facility] COMPARISON: CHEST SINGLE AP, March 06, 2018, 3:23. INDICATIONS : Short of breath. MEDICAL HISTORY : None. SURGICAL HISTORY : None. ENCOUNTER: Subsequent ACUITY: 1 week PAIN SCORE: 0/10 LOCATION: Bilateral chest FINDINGS: A single view of the chest demonstrates diminished lung volumes with cardiomegaly and pulmonary vascu lar congestion. Bibasilar densities. Osseous structures are intact. CONCLUSION: Pulmonary vascular congestion with bibasilar densities likely atelectasis. Oscar Diallo MD on March 07, 2018 at 4:14 Board Certified Radiologist. This report was verified electronically.
[2018-03-07 05:24] LABS: HEMATOCRIT 38.9 % (39.0-51.0); HEMOGLOBIN 12.7 GM/DL (13.0-17.0); MEAN CELL VOLUME 86.5 FL (80.0-100.0); MEAN CORPUSCULAR HEMOGLOBIN 28.3 PG (27.0-34.0); MEAN CORPUSCULAR HGB CONC 32.7 % (32.0-36.0); MEAN PLATELET VOLUME 10.6 FL (7.0-11.0); PLATELET COUNT 176 TH/MM3 (150-450); RED CELL DISTRIBUTION WIDTH 14.2 % (11.6-17.2); WHITE BLOOD COUNT 12.6 TH/MM3 (4.0-11.0)
[2018-03-07 05:40] LABS: BICARBONATE 31.4 MEQ/L (21.0-32.0); CALCIUM 8.4 MG/DL (8.5-10.1); CREATININE 1.17 MG/DL (0.60-1.30); MAGNESIUM 1.9 MG/DL (1.5-2.5); PHOSPHORUS 3.1 MG/DL (2.5-4.9)
[2018-03-07] MEDS: CHLORHEXIDINE 0.12% (ORAL KIT) 15 ML CUP MT SCH ×2 (08:00→20:00)
[2018-03-07] MEDS: FAMOTIDINE 20 MG TAB PO SCH ×2 (08:38→20:09)
[2018-03-07] MEDS: AMIODARONE 200 MG TAB PO SCH ×2 (08:38→20:09)
[2018-03-07] MEDS: SODIUM CHLORIDE 0.9% FLUSH 10 ML FLUSH IV FLUSH SCH ×2 (08:39→20:10)
[2018-03-07] MEDS: DOCUSATE SODIUM 50 MG/SENNA 8.6 MG TAB PO SCH ×2 (08:39→20:09)
[2018-03-07] MEDS ORDERED: POTASSIUM CHLORIDE 20 MEQ CONTROLLED RELEASE TAB PO ONE (09:30)
[2018-03-07] MEDS ORDERED: MAGNESIUM SULFATE 1 GM PREMIX 100 ML IV ONE (09:30)
--- NOTE | 2018-03-07 10:15 | HHI.CCPN ---
Subjective Remarks/Hospital Course Hospital Course: 72-year-old male with history of A. fib, hypertension, diabetes, presents for evaluation of altered mental status and fever. Patient has no complaints however he is a poor historian. He appears mildly lethargic. His states 2 days ago he began with a back pain and nausea with vomiting. He developed a fever. T-max at home was 104. He has not been acting himself since. Patient has not had a bowel movement in 3 days per his . He has had 2 episodes of hematuria 5 days ago. He has had no cough or chest congestion. There are no other symptoms to report at this time. 02/25: s/p ureteral stents. blood and urine growing Enterococcus. clinically stabilizing. still remains afib RVR, but HR in the 130s and appears to need this HR for perfusion in sepsis. subjectively, the patient feels better than yesterday and denies complaints. states that he has not taken Flexeril in weeks and asks that we discontinue it. ROS negative. 02/26: Overnight developed increasing oxygen requirement shortness of breath currently on partial nonrebreather satting 90-91%. Currently in A. fib with RVR on amiodarone infusion heart rate 120-140s. IV Lopressor 2.5 mg push 1, digoxin 0.25 mg IV 1. Chest x-ray stat. Discontinue IV fluids. IV Lasix 40 mg 1. Enterococcus bacteremia. Discontinue cefepime start Unasyn, called the pharmacy to confirm adequate vancomycin dosing. 02/27: Large A-aO2 gradient requiring conversion to APRV/Flolan overnight. Settings adjusted today for improved CO2 removal and same mean airway pressure. Weaned to 60%. Continue APRV overnight tonight, convert to conventional tomorrow but will require PEEP at least 15-20 initially. Renal function worse - will hydrate gingerly now that oxygen diffusion has improved. 02/28: FiO2 down to 40%, but remains on APRV. Remains in A. fib with RVR. Weaned off Haider-Synephrine but remains on vasopressin. Enterococcus sensitive to ampicillin. Will discontinue vancomycin. Remains on Flolan-start weaning. Change from Bilevel to PRVC/AC 03/01: Remains critically ill but stabilizing now. APRV changed to PRVC with PEEP of 15, patient tolerating well oxygenation prieto, even though there is lung de- recruitment, increasing infiltrates. Flolan down to the last bag wean to DC. UO output improved with fluid boluses creatinine 1.35 today 03/02: Critically ill but stabilizing to slightly improving. FiO2 down to 50%, PEEP stable at 10. Chest x-ray shows consolidation involving most of right lung and left lower lobe. Check CT of the chest to evaluate better. Currently on heparin. Flolan was DC'd yesterday 03/03: Remains intubated sedated and critical. PEEP remains at 10, reduce to 8. FiO2 45%. CT of the chest yesterday showed moderate bilateral effusions and consolidation. Unable to get adequate ultrasound visualization to tap the effusion due to body habitus. Discontinue IV fluids, start intermittent diuresis with IV Lasix 03/04: failed SBT immediately: became tachypneic and in acute distress. some diuresis yesterday, but not enough diuresis to make improvements in clinical volume overload. sodium uptrends. wbc uptrending, but afebrile. 03/05: Off all vasopressors. Afebrile. Forced diuresis -5.5 L. Currently on CPAP trial 12/07 at 45%. Arousable and follows commands. In sinus bradycardia. 03/06: Extubated today without complication. Currently 4 L nasal cannula. Speech therapy to evaluate. Denies shortness of breath. Subjective: 03/07: Currently on 4 L nasal cannula. On full liquid diet. Denies shortness of breath. Will continue to slowly diurese. Potassium actively replaced. Question regarding allergy shots. Objective Vital Signs Date Time Temp Pulse Resp B/P (MAP) Pulse Ox O2 Delivery O2 Flow Rate FiO2 03/07/18 08:00 87 03/07/18 08:00 98.8 22 131/63 (85) 94 03/06/18 22:28 Nasal Cannula 4.00 03/06/18 08:15 40 Intake and Output 03/07/18 03/07/18 03/08/18 08:00 16:00 00:00 Intake Total 100 ml Output Total 1300 ml Balance -1200 ml Result Diagram: 03/07/18 0437 03/07/18 0437 Other Results Microbiology Date/Time Source Procedure Growth Status 03/02/18 16:37 Blood Peripheral Aerobic Blood Culture - Preliminary NO GROWTH IN 4 DAYS Resulted 03/02/18 16:37 Blood Peripheral Anaerobic Blood Culture - Preliminary NO GROWTH IN 4 DAYS Resulted 03/02/18 17:40 Sputum Endotracheal Gram Stain - Final Complete 03/02/18 17:40 Sputum Endotracheal Sputum Culture - Final LIGHT GROWTH NORMAL RESPIRATORY RAFIQ Complete 02/24/18 21:05 Urine Catheterized Urine Urine Culture - Final 10-50,000 CFU/ML MIXED GRAM POSITIVE ... Complete Imaging Last Impressions Chest X-Ray 03/07/18 0600 Signed Impressions: Service Date/Time: Wednesday, March 07, 2018 03:04 - CONCLUSION: Pulmonary vascular congestion with bibasilar densities likely atelectasis. Oscar Diallo MD Chest CT 03/02/18 0000 Signed Impressions: Service Date/Time: February 14:24 - CONCLUSION: The bilateral mid and lower lung opacities seen on chest x-ray represent a combination of lower lobe consolidation and moderate bilateral pleural effusions, right greater than left. Ed Draper MD Abdomen X-Ray 02/25/18 0000 Signed Impressions: Service Date/Time: Sunday, February 25, 2018 10:46 - CONCLUSION: Placement of right pigtail stent catheter with the possible ureteral calculus along the proximal catheter. Van Minor MD Abdomen/Pelvis CT 02/24/18 0000 Signed Impressions: Service Date/Time: Saturday, February 24, 2018 22:45 - CONCLUSION: Mild hydronephrosis of the right kidney with a 4 x 6 mm proximal ureteral stone. Multiple cysts throughout both kidneys. Thomas Carter MD Procedures Right retrograde double-J stent placement 6 [place]i 26 cm Objective Remarks GENERAL: 72-year-old male currently nasal cannula in no acute distress SKIN: Warm and dry. HEAD: Normocephalic. EYES: No scleral icterus. No injection or drainage. NECK: trachea midline. Supple CARDIOVASCULAR: irregularly irregular rhythm. afib. S1, S2 no S4. RESPIRATORY: Air entry equal bilaterally. Coarse sounds predominantly at the bases GASTROINTESTINAL: Abdomen soft, obese, non-tender, nondistended. MUSCULOSKELETAL: No cyanosis. Well perfused. Trace to 1+ bilateral lower extremity edema NEURO EXAM: Cranial nerves II through XII grossly intact. Strength is equal and symmetric bilaterally. Normal sensation Urinary Catheter: Yes Assessment to: Continue Barron insert reason: ICU Pt Getting Diuretics Vascular Central Line Catheter: No Assessment to: Continue A/P Assessment and Plan Neuro/Psych: Acetaminophen 650 mg p.o. every 6 hours as needed fever Hydrocodone/acetaminophen 5/325 1 tablet every 4 hours as needed pain 1 through 5 Morphine sulfate 2 mg IV every 2 hours as needed pain 6-10 CV: Atrial fibrillation currently in sinus bradycardia History of hypertension Acute systolic heart failure question Dyslipidemia Holding home medications metoprolol succinate/hydrochlorothiazide 100 mg/12.5 mg 1 tablet daily, amlodipine 2.5 mg daily for hypertension Holding losartan potassium 50 mg p.o. twice daily Continue amiodarone 200 mg twice daily Continue diuresis furosemide 40 mg IV daily Echocardiogram 02/28 revealed EF 40%. LVH. Resp: Acute hypoxemic respiratory failure -extubated 03/06 Bilateral pleural effusions Nasal cannula to maintain saturations greater than equal to 92% Incentive spirometry while awake Albuterol/ipratropium aerosols every 6 hours with albuterol aerosols every 2 hours as needed dyspnea PEP every 6 hours Follow-up chest x-ray in a.m. 03/08 Continue with forced diuresis GI: Elevated AST Hypoalbuminemia Speech therapy to evaluate and treat Famotidine for GI prophylaxis Docusate sodium/senna 1 tablet twice daily for bowel regimen Lactulose 30 cc every 6 hours for bowel regimen : BPH Right UPJ calculus status post right retrograde JJ stent placement 02/25 #6 [place] by [address] [place] Holding Silodosin 8 mg daily for BPH Holding solifenacin 10 mg p.o. daily for overactive bladder Maintain Barron catheter Endo: Hyperglycemia of critical illness Diabetes Mellitus type II Holding insulin detemir 8 units subcu twice daily but will continue with with NovoLog sliding scale insulin every before meals/at bedtime/high regimen Renal: Creatinine currently within normal limits Monitor urine output Heme: Leukocytosis Normocytic anemia Chronic warfarin use Currently on heparin drip at 1800 units an hour Previously received warfarin 10 mg by mouth daily Monitor CBC daily. Follow trend ID: Enterococcus faecalis sepsis Currently on ampicillin/sulbactam 1.5 g IV every 6 hours Pertinent cultures 02/24 -blood cultures 2 -Enterococcus faecalis Blood cultures 03/02 no growth to date MSK: PT evaluate and treat FEN: Hypokalemia 60 mg potassium chloride p.o. 1 now. Recheck in a.m. Access -Utilize peripheral IV. Central line if indicated Prophylaxis -GI -famotidine -DVT -SCD/heparin drip Level 3 follow-up Norm Mcclendon MD Mar 07, 2018 10:15
[2018-03-07] MEDS: PRAVASTATIN SOD 40 MG TAB PO SCH (20:09)
[2018-03-08] VITALS (14 sets, daily range): BP systolic 137–159; BP diastolic 65–77; PULSE 75–96; RESP 22–39; TEMP 98.4–98.7; O2SAT 81–96
[2018-03-08] MEDS: AMPICILLIN-SULBACTAM INJ 1,500 MG in SODIUM CHLORIDE 0.9% INJ 100 ML IV SCH ×4 (02:16→20:18)
[2018-03-08] MEDS: CHLORHEXIDINE GLUCONATE 2 % 1 PACK (2 CLOTHS) TOP SCH (04:00)
[2018-03-08] MEDS: RESP: ALBUTEROL 2.5 MG/IPRATROPIUM 0.5 MG NEB (SCH) NEB ×4 (04:40→21:16)
[2018-03-08] MEDS: LACTULOSE SYRUP 20 GM/30 ML CUP OG-TUBE SCH ×3 (06:00→12:51)
[2018-03-08] MEDS: HEPARIN-D5W 25,000 U/250 ML 250 ML IV PRN (06:28)
[2018-03-08 07:38] LABS: HEMATOCRIT 36.3 % (39.0-51.0); HEMOGLOBIN 12.1 GM/DL (13.0-17.0); MEAN CELL VOLUME 85.3 FL (80.0-100.0); MEAN CORPUSCULAR HEMOGLOBIN 28.5 PG (27.0-34.0); MEAN CORPUSCULAR HGB CONC 33.5 % (32.0-36.0); MEAN PLATELET VOLUME 10.9 FL (7.0-11.0); PLATELET COUNT 159 TH/MM3 (150-450); RED BLOOD COUNT 4.25 MIL/MM3 (4.50-5.90); RED CELL DISTRIBUTION WIDTH 13.9 % (11.6-17.2); WHITE BLOOD COUNT 9.2 TH/MM3 (4.0-11.0)
[2018-03-08] MEDS: AMIODARONE 200 MG TAB PO SCH ×2 (07:52→20:18)
[2018-03-08] MEDS: FAMOTIDINE 20 MG TAB PO SCH ×2 (07:52→20:18)
[2018-03-08] MEDS: CHLORHEXIDINE 0.12% (ORAL KIT) 15 ML CUP MT SCH ×2 (07:53→20:00)
[2018-03-08] MEDS: SODIUM CHLORIDE 0.9% FLUSH 10 ML FLUSH IV FLUSH SCH ×2 (07:53→20:19)
[2018-03-08] MEDS: INSULIN ASPART SUPPLEMENTAL SCALE SQ SCH ×4 (07:53→20:36)
[2018-03-08] MEDS: DOCUSATE SODIUM 50 MG/SENNA 8.6 MG TAB PO SCH ×2 (07:54→20:19)
[2018-03-08 08:01] LABS: BICARBONATE 27.3 MEQ/L (21.0-32.0); CALCIUM 8.3 MG/DL (8.5-10.1); CREATININE 1.03 MG/DL (0.60-1.30); MAGNESIUM 2.1 MG/DL (1.5-2.5)
[2018-03-08 08:02] LABS: PHOSPHORUS 2.4 MG/DL (2.5-4.9)
--- NOTE | 2018-03-08 13:06 | HHI.CCPN ---
Subjective Remarks/Hospital Course Hospital Course: 72-year-old male with history of A. fib, hypertension, diabetes, presents for evaluation of altered mental status and fever. Patient has no complaints however he is a poor historian. He appears mildly lethargic. His states 2 days ago he began with a back pain and nausea with vomiting. He developed a fever. T-max at home was 104. He has not been acting himself since. Patient has not had a bowel movement in 3 days per his . He has had 2 episodes of hematuria 5 days ago. He has had no cough or chest congestion. There are no other symptoms to report at this time. 02/25: s/p ureteral stents. blood and urine growing Enterococcus. clinically stabilizing. still remains afib RVR, but HR in the 130s and appears to need this HR for perfusion in sepsis. subjectively, the patient feels better than yesterday and denies complaints. states that he has not taken Flexeril in weeks and asks that we discontinue it. ROS negative. 02/26: Overnight developed increasing oxygen requirement shortness of breath currently on partial nonrebreather satting 90-91%. Currently in A. fib with RVR on amiodarone infusion heart rate 120-140s. IV Lopressor 2.5 mg push 1, digoxin 0.25 mg IV 1. Chest x-ray stat. Discontinue IV fluids. IV Lasix 40 mg 1. Enterococcus bacteremia. Discontinue cefepime start Unasyn, called the pharmacy to confirm adequate vancomycin dosing. 02/27: Large A-aO2 gradient requiring conversion to APRV/Flolan overnight. Settings adjusted today for improved CO2 removal and same mean airway pressure. Weaned to 60%. Continue APRV overnight tonight, convert to conventional tomorrow but will require PEEP at least 15-20 initially. Renal function worse - will hydrate gingerly now that oxygen diffusion has improved. 02/28: FiO2 down to 40%, but remains on APRV. Remains in A. fib with RVR. Weaned off Haider-Synephrine but remains on vasopressin. Enterococcus sensitive to ampicillin. Will discontinue vancomycin. Remains on Flolan-start weaning. Change from Bilevel to PRVC/AC 03/01: Remains critically ill but stabilizing now. APRV changed to PRVC with PEEP of 15, patient tolerating well oxygenation prieto, even though there is lung de- recruitment, increasing infiltrates. Flolan down to the last bag wean to DC. UO output improved with fluid boluses creatinine 1.35 today 03/02: Critically ill but stabilizing to slightly improving. FiO2 down to 50%, PEEP stable at 10. Chest x-ray shows consolidation involving most of right lung and left lower lobe. Check CT of the chest to evaluate better. Currently on heparin. Flolan was DC'd yesterday 03/03: Remains intubated sedated and critical. PEEP remains at 10, reduce to 8. FiO2 45%. CT of the chest yesterday showed moderate bilateral effusions and consolidation. Unable to get adequate ultrasound visualization to tap the effusion due to body habitus. Discontinue IV fluids, start intermittent diuresis with IV Lasix 03/04: failed SBT immediately: became tachypneic and in acute distress. some diuresis yesterday, but not enough diuresis to make improvements in clinical volume overload. sodium uptrends. wbc uptrending, but afebrile. 03/05: Off all vasopressors. Afebrile. Forced diuresis -5.5 L. Currently on CPAP trial 12/07 at 45%. Arousable and follows commands. In sinus bradycardia. 03/06: Extubated today without complication. Currently 4 L nasal cannula. Speech therapy to evaluate. Denies shortness of breath. 03/07: Currently on 4 L nasal cannula. On full liquid diet. Denies shortness of breath. Will continue to slowly diurese. Potassium actively replaced. Question regarding allergy shots. Subjective: 03/08: Resting a bit of 4 L nasal cannula. Hematuria overnight. Will hold heparin drip. Patient chronically warfarin for atrial fibrillation. Okay to transfer to floor Objective Vital Signs Date Time Temp Pulse Resp B/P (MAP) Pulse Ox O2 Delivery O2 Flow Rate FiO2 03/08/18 09:25 95 Nasal Cannula 4.00 03/08/18 08:00 98.4 75 26 156/74 (101) 03/06/18 08:15 40 Intake and Output 03/08/18 03/08/18 03/09/18 08:00 16:00 00:00 Intake Total 100 ml Output Total 1300 ml Balance -1200 ml Result Diagram: 03/08/18 0723 03/08/18 0723 Other Results Microbiology Date/Time Source Procedure Growth Status 03/02/18 16:37 Blood Peripheral Aerobic Blood Culture - Final NO GROWTH IN 5 DAYS Complete 03/02/18 16:37 Blood Peripheral Anaerobic Blood Culture - Final NO GROWTH IN 5 DAYS Complete 03/02/18 17:40 Sputum Endotracheal Gram Stain - Final Complete 03/02/18 17:40 Sputum Endotracheal Sputum Culture - Final LIGHT GROWTH NORMAL RESPIRATORY RAFIQ Complete 02/24/18 21:05 Urine Catheterized Urine Urine Culture - Final 10-50,000 CFU/ML MIXED GRAM POSITIVE ... Complete Imaging Last Impressions Chest X-Ray 03/07/18 0600 Signed Impressions: Service Date/Time: Wednesday, March 07, 2018 03:04 - CONCLUSION: Pulmonary vascular congestion with bibasilar densities likely atelectasis. Oscar Diallo MD Chest CT 03/02/18 0000 Signed Impressions: Service Date/Time: February 14:24 - CONCLUSION: The bilateral mid and lower lung opacities seen on chest x-ray represent a combination of lower lobe consolidation and moderate bilateral pleural effusions, right greater than left. Ed Draper MD Abdomen X-Ray 02/25/18 0000 Signed Impressions: Service Date/Time: Sunday, February 25, 2018 10:46 - CONCLUSION: Placement of right pigtail stent catheter with the possible ureteral calculus along the proximal catheter. Van Minor MD Abdomen/Pelvis CT 02/24/18 0000 Signed Impressions: Service Date/Time: Saturday, February 24, 2018 22:45 - CONCLUSION: Mild hydronephrosis of the right kidney with a 4 x 6 mm proximal ureteral stone. Multiple cysts throughout both kidneys. Thomas Carter MD Procedures Right retrograde double-J stent placement 6 [place]ese 26 cm Objective Remarks GENERAL: 72-year-old male currently nasal cannula in no acute distress SKIN: Warm and dry. HEAD: Normocephalic. EYES: No scleral icterus. No injection or drainage. NECK: trachea midline. Supple CARDIOVASCULAR: irregularly irregular rhythm. afib. S1, S2 no S4. RESPIRATORY: Air entry equal bilaterally. Coarse sounds predominantly at the bases GASTROINTESTINAL: Abdomen soft, obese, non-tender, nondistended. MUSCULOSKELETAL: No cyanosis. Well perfused. Trace to 1+ bilateral lower extremity edema NEURO EXAM: Cranial nerves II through XII grossly intact. Strength is equal and symmetric bilaterally. Normal sensation Urinary Catheter: Yes Assessment to: Remove Vascular Central Line Catheter: No Assessment to: Continue A/P Assessment and Plan Neuro/Psych: Acetaminophen 650 mg p.o. every 6 hours as needed fever Hydrocodone/acetaminophen 5/325 1 tablet every 4 hours as needed pain 1 through 5 Morphine sulfate 2 mg IV every 2 hours as needed pain 6-10 CV: Atrial fibrillation currently in sinus bradycardia History of hypertension Acute systolic heart failure question Dyslipidemia Holding home medications metoprolol succinate/hydrochlorothiazide 100 mg/12.5 mg 1 tablet daily, amlodipine 2.5 mg daily for hypertension Holding losartan potassium 50 mg p.o. twice daily Continue amiodarone 200 mg twice daily Continue diuresis furosemide 20 mg IV daily Echocardiogram 02/28 revealed EF 40%. LVH. Resp: Acute hypoxemic respiratory failure -extubated 03/06 Bilateral pleural effusions Nasal cannula to maintain saturations greater than equal to 92% Incentive spirometry while awake Albuterol/ipratropium aerosols every 6 hours with albuterol aerosols every 2 hours as needed dyspnea PEP every 6 hours Follow-up chest x-ray in a.m. 03/09 GI: Elevated AST Hypoalbuminemia Speech therapy to evaluate and treat Famotidine for GI prophylaxis Docusate sodium/senna 1 tablet twice daily for bowel regimen : BPH Right UPJ calculus status post right retrograde JJ stent placement 02/25 #6 [place] by [address] [place] Holding Silodosin 8 mg daily for BPH Holding solifenacin 10 mg p.o. daily for overactive bladder Maintain Barron catheter Endo: Hyperglycemia of critical illness Diabetes Mellitus type II Holding insulin detemir 8 units subcu twice daily but will continue with with NovoLog sliding scale insulin every before meals/at bedtime/high regimen Renal: Creatinine currently within normal limits Monitor urine output Heme: Leukocytosis Normocytic anemia Chronic warfarin use Currently on heparin drip at 1800 units an hour. Will hold with hematuria Previously received warfarin 10 mg by mouth daily Monitor CBC daily. Follow trend ID: Enterococcus faecalis sepsis Currently on ampicillin/sulbactam 1.5 g IV every 6 hours Pertinent cultures 02/24 -blood cultures 2 -Enterococcus faecalis Blood cultures 03/02 no growth to date MSK: PT evaluate and treat FEN: Hypokalemia 60 mg potassium chloride p.o. 1 now. Recheck in a.m. Access -Utilize peripheral IV. Central line if indicated Prophylaxis -GI -famotidine -DVT -SCD/heparin currently on hold with hematuria Level 2 follow-up. Patient stable from a critical care medicine standpoint. We will assign care to hospitalist in a.m. 03/09/2018. Okay to transfer from ICU Norm Mcclendon MD Mar 08, 2018 13:06
[2018-03-08] MEDS ORDERED: POTASSIUM CHLORIDE 20 MEQ CONTROLLED RELEASE TAB PO ONE (14:00)
[2018-03-08] MEDS ORDERED: POTASSIUM PHOSPHATE INJ 30 MMOL in SODIUM CHLOR 0.9% 250 ML INJ 250 ML IV ONE (14:00)
[2018-03-08] MEDS ORDERED: FUROSEMIDE 20 MG/2 ML VIAL IV PUSH ONE (14:00)
[2018-03-08] MEDS ORDERED: MAGNESIUM SULFATE 1 GM PREMIX 100 ML IV ONE (14:00)
[2018-03-08] MEDS: PRAVASTATIN SOD 40 MG TAB PO SCH (20:18)
[2018-03-09] VITALS (14 sets, daily range): BP systolic 142–201; BP diastolic 63–94; PULSE 70–96; RESP 9–36; TEMP 98–98.5; O2SAT 90–98
[2018-03-09] MEDS: AMPICILLIN-SULBACTAM INJ 1,500 MG in SODIUM CHLORIDE 0.9% INJ 100 ML IV SCH ×4 (02:15→23:10)
[2018-03-09] MEDS: RESP: ALBUTEROL 2.5 MG/IPRATROPIUM 0.5 MG NEB (SCH) NEB ×4 (04:00→20:49)
[2018-03-09] MEDS: CHLORHEXIDINE GLUCONATE 2 % 1 PACK (2 CLOTHS) TOP SCH (04:00)
--- NOTE | 2018-03-09 04:47 | RADRPT ---
EXAM DATE/TIME: 03/09/2018 02:55 [facility] COMPARISON: CHEST SINGLE AP, March 07, 2018, 3:04. INDICATIONS : Shortness of breath, possible pulmonary disease. MEDICAL HISTORY : None. SURGICAL HISTORY : None. ENCOUNTER: Subsequent ACUITY: 2 weeks PAIN SCORE: Non-responsive. LOCATION: Bilateral chest FINDINGS: A single view of the chest demonstrates improving bibasilar densities. Cardiomegaly. The cardiomedia stinal contours are unremarkable. Osseous structures are intact. CONCLUSION: Improving bibasilar densities. Oscar Diallo MD on March 09, 2018 at 4:45 Board Certified Radiologist. This report was verified electronically.
[2018-03-09 06:50] LABS: MEAN CELL VOLUME 86.6 FL (80.0-100.0); MEAN CORPUSCULAR HEMOGLOBIN 28.7 PG (27.0-34.0); MEAN CORPUSCULAR HGB CONC 33.2 % (32.0-36.0); MEAN PLATELET VOLUME 11.2 FL (7.0-11.0); PLATELET COUNT 167 TH/MM3 (150-450); RED BLOOD COUNT 4.16 MIL/MM3 (4.50-5.90); RED CELL DISTRIBUTION WIDTH 14.2 % (11.6-17.2); WHITE BLOOD COUNT 8.7 TH/MM3 (4.0-11.0)
[2018-03-09 07:08] LABS: BICARBONATE 28.1 MEQ/L (21.0-32.0); CALCIUM 8.4 MG/DL (8.5-10.1); CREATININE 1.06 MG/DL (0.60-1.30); MAGNESIUM 2.2 MG/DL (1.5-2.5); PHOSPHORUS 2.6 MG/DL (2.5-4.9)
[2018-03-09] MEDS: INSULIN ASPART SUPPLEMENTAL SCALE SQ SCH ×4 (08:00→21:00)
[2018-03-09] MEDS: CHLORHEXIDINE 0.12% (ORAL KIT) 15 ML CUP MT SCH ×2 (08:00→20:00)
--- NOTE | 2018-03-09 08:52 | HHI.CCPN ---
Subjective Remarks/Hospital Course Hospital Course: 72-year-old male with history of A. fib, hypertension, diabetes, presents for evaluation of altered mental status and fever. Patient has no complaints however he is a poor historian. He appears mildly lethargic. His states 2 days ago he began with a back pain and nausea with vomiting. He developed a fever. T-max at home was 104. He has not been acting himself since. Patient has not had a bowel movement in 3 days per his . He has had 2 episodes of hematuria 5 days ago. He has had no cough or chest congestion. There are no other symptoms to report at this time. 02/25: s/p ureteral stents. blood and urine growing Enterococcus. clinically stabilizing. still remains afib RVR, but HR in the 130s and appears to need this HR for perfusion in sepsis. subjectively, the patient feels better than yesterday and denies complaints. states that he has not taken Flexeril in weeks and asks that we discontinue it. ROS negative. 02/26: Overnight developed increasing oxygen requirement shortness of breath currently on partial nonrebreather satting 90-91%. Currently in A. fib with RVR on amiodarone infusion heart rate 120-140s. IV Lopressor 2.5 mg push 1, digoxin 0.25 mg IV 1. Chest x-ray stat. Discontinue IV fluids. IV Lasix 40 mg 1. Enterococcus bacteremia. Discontinue cefepime start Unasyn, called the pharmacy to confirm adequate vancomycin dosing. 02/27: Large A-aO2 gradient requiring conversion to APRV/Flolan overnight. Settings adjusted today for improved CO2 removal and same mean airway pressure. Weaned to 60%. Continue APRV overnight tonight, convert to conventional tomorrow but will require PEEP at least 15-20 initially. Renal function worse - will hydrate gingerly now that oxygen diffusion has improved. 02/28: FiO2 down to 40%, but remains on APRV. Remains in A. fib with RVR. Weaned off Haider-Synephrine but remains on vasopressin. Enterococcus sensitive to ampicillin. Will discontinue vancomycin. Remains on Flolan-start weaning. Change from Bilevel to PRVC/AC 03/01: Remains critically ill but stabilizing now. APRV changed to PRVC with PEEP of 15, patient tolerating well oxygenation prieto, even though there is lung de- recruitment, increasing infiltrates. Flolan down to the last bag wean to DC. UO output improved with fluid boluses creatinine 1.35 today 03/02: Critically ill but stabilizing to slightly improving. FiO2 down to 50%, PEEP stable at 10. Chest x-ray shows consolidation involving most of right lung and left lower lobe. Check CT of the chest to evaluate better. Currently on heparin. Flolan was DC'd yesterday 03/03: Remains intubated sedated and critical. PEEP remains at 10, reduce to 8. FiO2 45%. CT of the chest yesterday showed moderate bilateral effusions and consolidation. Unable to get adequate ultrasound visualization to tap the effusion due to body habitus. Discontinue IV fluids, start intermittent diuresis with IV Lasix 03/04: failed SBT immediately: became tachypneic and in acute distress. some diuresis yesterday, but not enough diuresis to make improvements in clinical volume overload. sodium uptrends. wbc uptrending, but afebrile. 03/05: Off all vasopressors. Afebrile. Forced diuresis -5.5 L. Currently on CPAP trial 12/07 at 45%. Arousable and follows commands. In sinus bradycardia. 03/06: Extubated today without complication. Currently 4 L nasal cannula. Speech therapy to evaluate. Denies shortness of breath. 03/07: Currently on 4 L nasal cannula. On full liquid diet. Denies shortness of breath. Will continue to slowly diurese. Potassium actively replaced. Question regarding allergy shots. 03/08: Resting a bit of 4 L nasal cannula. Hematuria overnight. Will hold heparin drip. Patient chronically warfarin for atrial fibrillation. Okay to transfer to floor Subjective: 03/09: Currently on 2 L nasal cannula. Barron has been removed. No more hematuria noted. Will start on Lovenox to bridge with warfarin. Okay to transfer to floor today this a.m. Objective Vital Signs Date Time Temp Pulse Resp B/P (MAP) Pulse Ox O2 Delivery O2 Flow Rate FiO2 03/09/18 08:24 91 Nasal Cannula 2.00 03/09/18 06:00 75 03/09/18 04:00 98.5 19 143/68 (93) 03/06/18 08:15 40 Intake and Output 03/09/18 03/09/1803/10/18 08:00 16:00 00:00 Intake Total 250 ml Balance 250 ml Result Diagram: 03/09/18 0508 03/09/18 0508 Other Results Microbiology Date/Time Source Procedure Growth Status 03/02/18 16:37 Blood Peripheral Aerobic Blood Culture - Final NO GROWTH IN 5 DAYS Complete 03/02/18 16:37 Blood Peripheral Anaerobic Blood Culture - Final NO GROWTH IN 5 DAYS Complete 03/02/18 17:40 Sputum Endotracheal Gram Stain - Final Complete 03/02/18 17:40 Sputum Endotracheal Sputum Culture - Final LIGHT GROWTH NORMAL RESPIRATORY RAFIQ Complete 02/24/18 21:05 Urine Catheterized Urine Urine Culture - Final 10-50,000 CFU/ML MIXED GRAM POSITIVE ... Complete Imaging Last Impressions Chest X-Ray 03/09/18 0600 Signed Impressions: Service Date/Time: February 02:55 - CONCLUSION: Improving bibasilar densities. Oscar Diallo MD Chest CT 03/02/18 0000 Signed Impressions: Service Date/Time: February 14:24 - CONCLUSION: The bilateral mid and lower lung opacities seen on chest x-ray represent a combination of lower lobe consolidation and moderate bilateral pleural effusions, right greater than left. Ed Draper MD Abdomen X-Ray 02/25/18 0000 Signed Impressions: Service Date/Time: Sunday, February 25, 2018 10:46 - CONCLUSION: Placement of right pigtail stent catheter with the possible ureteral calculus along the proximal catheter. Van Minor MD Abdomen/Pelvis CT 02/24/18 0000 Signed Impressions: Service Date/Time: Saturday, February 24, 2018 22:45 - CONCLUSION: Mild hydronephrosis of the right kidney with a 4 x 6 mm proximal ureteral stone. Multiple cysts throughout both kidneys. Thomas Carter MD Procedures Right retrograde double-J stent placement 6 Mal[place]ian 26 cm Objective Remarks GENERAL: 72-year-old male currently nasal cannula in no acute distress SKIN: Warm and dry. HEAD: Normocephalic. EYES: No scleral icterus. No injection or drainage. NECK: trachea midline. Supple CARDIOVASCULAR: irregularly irregular rhythm. afib. S1, S2 no S4. RESPIRATORY: Air entry equal bilaterally. Coarse sounds predominantly at the bases GASTROINTESTINAL: Abdomen soft, obese, non-tender, nondistended. MUSCULOSKELETAL: No cyanosis. Well perfused. Trace to 1+ bilateral lower extremity edema NEURO EXAM: Cranial nerves II through XII grossly intact. Strength is equal and symmetric bilaterally. Normal sensation Urinary Catheter: No Assessment to: Continue Vascular Central Line Catheter: No Assessment to: Continue A/P Assessment and Plan Neuro/Psych: Acetaminophen 650 mg p.o. every 6 hours as needed fever Hydrocodone/acetaminophen 5/325 1 tablet every 4 hours as needed pain 1 through 5 Morphine sulfate 2 mg IV every 2 hours as needed pain 6-10 CV: Atrial fibrillation currently in sinus bradycardia History of hypertension Acute systolic heart failure? Unknown baseline Dyslipidemia Holding home medications metoprolol succinate/hydrochlorothiazide 100 mg/12.5 mg 1 tablet daily, amlodipine 2.5 mg daily for hypertension Holding losartan potassium 50 mg p.o. twice daily Continue amiodarone 200 mg twice daily Continue diuresis furosemide 20 mg IV daily Echocardiogram 02/28 revealed EF 40%. LVH. Resp: Acute hypoxemic respiratory failure -extubated 03/06 Bilateral pleural effusions Nasal cannula to maintain saturations greater than equal to 92%. Currently on 2 L Incentive spirometry while awake Albuterol/ipratropium aerosols every 6 hours with albuterol aerosols every 2 hours as needed dyspnea PEP every 6 hours Follow-up chest x-ray in a.m. 03/09 revealed improving bilateral pulmonary infiltrates GI: Elevated AST Hypoalbuminemia Speech therapy to evaluate and treat Famotidine for GI prophylaxis Docusate sodium/senna 1 tablet twice daily for bowel regimen : BPH Right UPJ calculus status post right retrograde JJ stent placement 02/25 #6 Mal[place]ian by [address] [place] Holding Silodosin 8 mg daily for BPH Holding solifenacin 10 mg p.o. daily for overactive bladder Maintain Barron catheter Endo: Hyperglycemia of critical illness Diabetes Mellitus type II Holding insulin detemir 8 units subcu twice daily but will continue with with NovoLog sliding scale insulin every before meals/at bedtime/high regimen Renal: Creatinine currently within normal limits Monitor urine output Heme: Normocytic anemia Chronic warfarin use Heparin drip discontinued. We will resume today Previously received warfarin 10 mg by mouth daily Monitor CBC daily. Follow trend ID: Enterococcus faecalis sepsis Currently on ampicillin/sulbactam 1.5 g IV every 6 hours 14 days therapy Pertinent cultures 02/24 -blood cultures 2 -Enterococcus faecalis Blood cultures 03/02 no growth to date MSK: PT evaluate and treat FEN: Replace electrolytes as clinically indicated Access -Utilize peripheral IV. Central line if indicated Prophylaxis -GI -famotidine -DVT -SCD/heparin drip Level 2 follow-up. Patient stable from a critical care medicine standpoint. We will assign care to hospitalist in a.m. 03/10/2018. Okay to transfer from ICU Norm Mcclendon MD Mar 09, 2018 08:52
[2018-03-09] MEDS: AMIODARONE 200 MG TAB PO SCH ×2 (08:56→20:27)
[2018-03-09] MEDS: FAMOTIDINE 20 MG TAB PO SCH ×2 (08:56→20:27)
[2018-03-09] MEDS: DOCUSATE SODIUM 50 MG/SENNA 8.6 MG TAB PO SCH ×2 (08:56→20:27)
[2018-03-09] MEDS: FUROSEMIDE 20 MG/2 ML VIAL IV PUSH SCH (08:57)
[2018-03-09] MEDS: SODIUM CHLORIDE 0.9% FLUSH 10 ML FLUSH IV FLUSH SCH ×2 (08:58→23:11)
[2018-03-09] MEDS ORDERED: POTASSIUM CHLORIDE 10 MEQ CAP PO ONE (09:00)
[2018-03-09] MEDS: HEPARIN-D5W 25,000 U/250 ML 250 ML IV PRN ×2 (10:47→12:43)
[2018-03-09 12:07] LABS: HEMATOCRIT 38.4 % (39.0-51.0); HEMOGLOBIN 12.7 GM/DL (13.0-17.0); MEAN CORPUSCULAR HEMOGLOBIN 28.5 PG (27.0-34.0); MEAN CORPUSCULAR HGB CONC 33.1 % (32.0-36.0); MEAN PLATELET VOLUME 11.1 FL (7.0-11.0); PLATELET COUNT 173 TH/MM3 (150-450); RED BLOOD COUNT 4.47 MIL/MM3 (4.50-5.90); RED CELL DISTRIBUTION WIDTH 14.3 % (11.6-17.2); WHITE BLOOD COUNT 9.1 TH/MM3 (4.0-11.0)
[2018-03-09 12:17] LABS: INTERNATIONAL NORMALIZED RATIO 1.4 RATIO; PROTHROMBIN TIME - PATIENT 14.3 SEC (9.8-11.6)
[2018-03-09] MEDS: PRAVASTATIN SOD 40 MG TAB PO SCH (20:27)
[2018-03-10] VITALS: BP 148/82; PULSE 74; RESP 18; TEMP 97.2; O2SAT 93
[2018-03-10] MEDS: AMPICILLIN-SULBACTAM INJ 1,500 MG in SODIUM CHLORIDE 0.9% INJ 100 ML IV SCH ×4 (03:36→21:15)
[2018-03-10] MEDS: SODIUM CHLORIDE 0.9% FLUSH 10 ML FLUSH IV FLUSH PRN (03:36)
[2018-03-10] MEDS: RESP: ALBUTEROL 2.5 MG/IPRATROPIUM 0.5 MG NEB (SCH) NEB ×4 (03:43→19:35)
[2018-03-10] MEDS: CHLORHEXIDINE GLUCONATE 2 % 1 PACK (2 CLOTHS) TOP SCH (04:00)
[2018-03-10 06:03] LABS: HEMOGLOBIN 12.8 GM/DL (13.0-17.0); MEAN CELL VOLUME 86.6 FL (80.0-100.0); MEAN CORPUSCULAR HEMOGLOBIN 28.4 PG (27.0-34.0); MEAN CORPUSCULAR HGB CONC 32.8 % (32.0-36.0); PLATELET COUNT 154 TH/MM3 (150-450); RED BLOOD COUNT 4.51 MIL/MM3 (4.50-5.90); RED CELL DISTRIBUTION WIDTH 14.4 % (11.6-17.2); WHITE BLOOD COUNT 7.8 TH/MM3 (4.0-11.0)
[2018-03-10 06:24] LABS: BICARBONATE 27.6 MEQ/L (21.0-32.0); CALCIUM 8.4 MG/DL (8.5-10.1); CREATININE 1.09 MG/DL (0.60-1.30)
[2018-03-10] MEDS: CHLORHEXIDINE 0.12% (ORAL KIT) 15 ML CUP MT SCH ×2 (07:09→20:00)
[2018-03-10] MEDS: INSULIN ASPART SUPPLEMENTAL SCALE SQ SCH ×4 (07:18→21:22)
[2018-03-10] MEDS: DOCUSATE SODIUM 50 MG/SENNA 8.6 MG TAB PO SCH ×2 (07:51→21:16)
[2018-03-10] MEDS: AMIODARONE 200 MG TAB PO SCH ×2 (07:51→21:16)
[2018-03-10] MEDS: FAMOTIDINE 20 MG TAB PO SCH ×2 (07:51→21:16)
[2018-03-10] MEDS: FUROSEMIDE 20 MG/2 ML VIAL IV PUSH SCH (07:54)
[2018-03-10 07:58] VITALS: BP 133/71; PULSE 67; RESP 18; TEMP 98.1; O2SAT 97
[2018-03-10] MEDS: SODIUM CHLORIDE 0.9% FLUSH 10 ML FLUSH IV FLUSH SCH ×2 (08:09→21:19)
[2018-03-10 09:54] LABS: ALBUMIN 2.5 GM/DL (3.4-5.0); DIRECT BILIRUBIN ADULT 0.2 MG/DL (0.0-0.2)
[2018-03-10 09:57] LABS: INDIRECT BILIRUBIN 0.6 MG/DL (0.0-0.8); TOTAL BILIRUBIN ADULT 0.8 MG/DL (0.2-1.0); TOTAL PROTEIN 6.4 GM/DL (6.4-8.2)
[2018-03-10] MEDS: HEPARIN-D5W 25,000 U/250 ML 250 ML IV PRN (10:07)
[2018-03-10 11:50] VITALS: BP 135/81; PULSE 90; RESP 18; TEMP 98.1; O2SAT 94
--- NOTE | 2018-03-10 13:05 | HHI.PR ---
Subjective Remarks Follow-up sepsis. States he is tired but overall improving. Since yesterday he has been out of bed. Discussed with nursing and case management, patient is stable for discharge to [facility] if accepted Objective Vitals Vital Signs Date Time Temp Pulse Resp B/P (MAP) Pulse Ox O2 Delivery O2 Flow Rate FiO2 03/10/18 11:55 Nasal Cannula 2.00 03/10/18 11:50 98.1 90 18 135/81 (99) 94 03/10/18 07:58 98.1 67 18 133/71 (91) 97 03/10/18 00:00 97.2 74 18 148/82 (104) 93 03/09/18 20:49 90 Nasal Cannula 2.00 03/09/18 20:00 98.1 78 19 152/86 (108) 92 03/09/18 16:00 98.0 03/09/18 16:00 85 I/O 03/09/18 03/09/18 03/09/18 03/10/18 03/10/18 03/10/18 07:00 15:00 23:00 07:00 15:00 23:00 Intake Total 250 ml 694 ml 515 ml 240 ml Output Total 1900 ml Balance 250 ml -1206 ml 515 ml 240 ml Intake Oral 620 ml 240 ml 240 ml IV Total 250 ml 74 ml 275 ml Output Urine Total 1900 ml # Voids 5 3 # Bowel Movements 0 Result Diagram: 03/10/18 0545 03/10/18 0545 Imaging Last Impressions Chest X-Ray 03/09/18 0600 Signed Impressions: Service Date/Time: February 02:55 - CONCLUSION: Improving bibasilar densities. Oscar Diallo MD Chest CT 03/02/18 0000 Signed Impressions: Service Date/Time: February 14:24 - CONCLUSION: The bilateral mid and lower lung opacities seen on chest x-ray represent a combination of lower lobe consolidation and moderate bilateral pleural effusions, right greater than left. Ed Draper MD Abdomen X-Ray 02/25/18 0000 Signed Impressions: Service Date/Time: Sunday, February 25, 2018 10:46 - CONCLUSION: Placement of right pigtail stent catheter with the possible ureteral calculus along the proximal catheter. Van Minor MD Abdomen/Pelvis CT 02/24/18 0000 Signed Impressions: Service Date/Time: Saturday, February 24, 2018 22:45 - CONCLUSION: Mild hydronephrosis of the right kidney with a 4 x 6 mm proximal ureteral stone. Multiple cysts throughout both kidneys. Thomas Carter MD Objective Remarks GENERAL: 72-year-old male currently nasal cannula in no acute distress SKIN: Warm and dry. CARDIOVASCULAR: irregularly irregular rhythm. afib. S1, S2 no S4. RESPIRATORY: Air entry equal bilaterally. Coarse sounds predominantly at the bases GASTROINTESTINAL: Abdomen soft, obese, non-tender, nondistended. MUSCULOSKELETAL: No cyanosis. Well perfused. Trace to 1+ bilateral lower extremity edema NEURO EXAM: Cranial nerves II through XII grossly intact. Strength is equal and symmetric bilaterally. Normal sensation Procedures Right retrograde double-J stent placement 6 English 26 cm A/P Problem List: (1) Sepsis ICD Code: A41.9 - Sepsis, unspecified organism Assessment and Plan Neuro/Psych: Acetaminophen 650 mg p.o. every 6 hours as needed fever Hydrocodone/acetaminophen 5/325 1 tablet every 4 hours as needed pain 1 through 5 Morphine sulfate 2 mg IV every 2 hours as needed pain 6-10 CV: Atrial fibrillation currently in sinus bradycardia History of hypertension Acute systolic heart failure? Unknown baseline Dyslipidemia Holding home medications metoprolol succinate/hydrochlorothiazide 100 mg/12.5 mg 1 tablet daily, amlodipine 2.5 mg daily for hypertension Holding losartan potassium 50 mg p.o. twice daily Continue amiodarone 200 mg twice daily Continue diuresis furosemide 20 mg IV daily Echocardiogram 02/28 revealed EF 40%. LVH. Resp: Acute hypoxemic respiratory failure -extubated 03/06 Bilateral pleural effusions Nasal cannula to maintain saturations greater than equal to 92%. Currently on 2 L Incentive spirometry while awake Albuterol/ipratropium aerosols every 6 hours with albuterol aerosols every 2 hours as needed dyspnea PEP every 6 hours Follow-up chest x-ray in a.m. 03/09 revealed improving bilateral pulmonary infiltrates GI: Elevated AST Hypoalbuminemia Speech therapy to evaluate and treat Famotidine for GI prophylaxis Docusate sodium/senna 1 tablet twice daily for bowel regimen : BPH Right UPJ calculus status post right retrograde JJ stent placement 02/25 #6 English by [address] [place] Holding Silodosin 8 mg daily for BPH Holding solifenacin 10 mg p.o. daily for overactive bladder Discontinue Barron catheter Endo: Hyperglycemia of critical illness Diabetes Mellitus type II Holding insulin detemir 8 units subcu twice daily but will continue with with NovoLog sliding scale insulin every before meals/at bedtime/high regimen Renal: Creatinine currently within normal limits Monitor urine output Heme: Normocytic anemia Chronic warfarin use Continue heparin drip and restart warfarin 10 mg by mouth daily Monitor CBC daily. Follow trend ID: Enterococcus faecalis sepsis Currently on ampicillin/sulbactam 1.5 g IV every 6 hours 14 days therapy Pertinent cultures 02/24 -blood cultures 2 -Enterococcus faecalis Blood cultures 03/02 no growth to date MSK: PT evaluate and treat FEN: Replace electrolytes as clinically indicated Access -Utilize peripheral IV. Central line if indicated Prophylaxis -GI -famotidine -DVT -SCD/heparin drip Discharge Planning Stable for discharge to [facility] MD Mar 10, 2018 13:05
[2018-03-10 13:40] LABS: INTERNATIONAL NORMALIZED RATIO 1.4 RATIO; PROTHROMBIN TIME - PATIENT 13.8 SEC (9.8-11.6)
[2018-03-10 16:00] VITALS: BP 133/63; PULSE 90; RESP 20; TEMP 98.2; O2SAT 95
[2018-03-10] MEDS: WARFARIN SOD 7.5 MG TAB PO SCH (16:08)
[2018-03-10] MEDS ORDERED: AMIO200T PO (17:33)
[2018-03-10] MEDS ORDERED: Albuterol-Ipratropium Neb NEB (17:33)
--- NOTE | 2018-03-10 17:34 | HHI.DCPOC ---
Discharge Care Plan Diagnosis: (1) Sepsis Your Health Problems Are: Difficulty with ADL Exercise Tolerance Goals to Promote Your Health * To prevent worsening of your condition and complications * To maintain your health at the optimal level Directions to Meet Your Goals Take your medications as prescribed Follow your dietary instruction Follow activity as directed Keep your appointments as scheduled Take your immunizations and boosters as scheduled If your symptoms worsen call your PCP, if no PCP go to Urgent Care Center or Emergency Room Smoking is Dangerous to Your Health. Avoid second hand smoke Call the 24-hour hour crisis hotline for domestic abuse at Sascha Matamoros MD Mar 10, 2018 17:34
[2018-03-10 19:36] VITALS: O2SAT 95
[2018-03-10 20:00] VITALS: BP 138/64; PULSE 89; RESP 18; TEMP 98; O2SAT 95
[2018-03-10] MEDS: PRAVASTATIN SOD 40 MG TAB PO SCH (21:16)
[2018-03-11] VITALS (7 sets, daily range): BP systolic 127–145; BP diastolic 72–78; PULSE 74–84; RESP 17–22; TEMP 97.6–98.8; O2SAT 92–95
[2018-03-11] MEDS: AMPICILLIN-SULBACTAM INJ 1,500 MG in SODIUM CHLORIDE 0.9% INJ 100 ML IV SCH ×4 (02:28→20:02)
[2018-03-11] MEDS: RESP: ALBUTEROL 2.5 MG/IPRATROPIUM 0.5 MG NEB (SCH) NEB ×4 (03:21→20:25)
[2018-03-11 03:25] LABS: HEMATOCRIT 35.5 % (39.0-51.0); HEMOGLOBIN 11.8 GM/DL (13.0-17.0); MEAN CELL VOLUME 85.9 FL (80.0-100.0); MEAN CORPUSCULAR HEMOGLOBIN 28.6 PG (27.0-34.0); MEAN CORPUSCULAR HGB CONC 33.3 % (32.0-36.0); MEAN PLATELET VOLUME 10.8 FL (7.0-11.0); PLATELET COUNT 184 TH/MM3 (150-450); RED BLOOD COUNT 4.14 MIL/MM3 (4.50-5.90); RED CELL DISTRIBUTION WIDTH 13.9 % (11.6-17.2); WHITE BLOOD COUNT 7.4 TH/MM3 (4.0-11.0)
[2018-03-11 03:44] LABS: INTERNATIONAL NORMALIZED RATIO 1.3 RATIO
[2018-03-11 03:46] LABS: BICARBONATE 29.8 MEQ/L (21.0-32.0); CALCIUM 8.3 MG/DL (8.5-10.1); CREATININE 1.14 MG/DL (0.60-1.30)
[2018-03-11] MEDS: CHLORHEXIDINE GLUCONATE 2 % 1 PACK (2 CLOTHS) TOP SCH (04:00)
[2018-03-11] MEDS: HEPARIN-D5W 25,000 U/250 ML 250 ML IV PRN ×3 (06:30→21:55)
[2018-03-11] MEDS: INSULIN ASPART SUPPLEMENTAL SCALE SQ SCH ×4 (07:56→20:11)
[2018-03-11] MEDS: CHLORHEXIDINE 0.12% (ORAL KIT) 15 ML CUP MT SCH ×2 (07:57→20:00)
[2018-03-11] MEDS: FAMOTIDINE 20 MG TAB PO SCH ×2 (08:48→20:01)
[2018-03-11] MEDS: DOCUSATE SODIUM 50 MG/SENNA 8.6 MG TAB PO SCH ×2 (08:48→20:01)
[2018-03-11] MEDS: AMIODARONE 200 MG TAB PO SCH ×2 (08:48→20:01)
[2018-03-11] MEDS: SODIUM CHLORIDE 0.9% FLUSH 10 ML FLUSH IV FLUSH SCH ×2 (08:49→20:02)
[2018-03-11] MEDS: FUROSEMIDE 20 MG/2 ML VIAL IV PUSH SCH (08:49)
[2018-03-11] MEDS ORDERED: FURO20TA PO (10:39)
[2018-03-11] MEDS ORDERED: POTA20TA5 PO (10:39)
[2018-03-11] MEDS: POTASSIUM CHLORIDE 20 MEQ CONTROLLED RELEASE TAB PO SCH (11:24)
[2018-03-11 11:40] LABS: INTERNATIONAL NORMALIZED RATIO 1.2 RATIO; PROTHROMBIN TIME - PATIENT 12.5 SEC (9.8-11.6)
--- NOTE | 2018-03-11 12:11 | HHI.PR ---
Subjective Remarks Follow-up sepsis and deconditioning. He is feeling better getting stronger. Awaiting insurance authorization for rehab discussed with nursing and case management Objective Vitals Vital Signs Date Time Temp Pulse Resp B/P (MAP) Pulse Ox O2 Delivery O2 Flow Rate FiO2 03/11/18 08:25 95 Nasal Cannula 2.00 03/11/18 08:00 98.4 84 17 127/74 (91) 93 03/11/18 00:00 98.8 84 18 145/72 (96) 94 03/10/18 20:00 98.0 89 18 138/64 (88) 95 03/10/18 19:36 95 Nasal Cannula 2.00 03/10/18 16:00 98.2 90 20 133/63 (86) 95 I/O 03/10/18 03/10/18 03/10/18 03/11/18 03/11/18 03/11/18 06:59 14:59 22:59 06:59 14:59 22:59 Intake Total 515 ml 340 ml 1100 ml 100 ml Output Total 1400 ml Balance 515 ml 340 ml -300 ml 100 ml Intake Oral 240 ml 240 ml 900 ml IV Total 275 ml 100 ml 200 ml 100 ml Output Urine Total 1400 ml # Voids 3 2 # Bowel Movements 2 Result Diagram: 03/11/18 0301 03/11/18 0301 Imaging Last Impressions Chest X-Ray 03/09/18 0600 Signed Impressions: Service Date/Time: February 02:55 - CONCLUSION: Improving bibasilar densities. Oscar Diallo MD Chest CT 03/02/18 0000 Signed Impressions: Service Date/Time: February 14:24 - CONCLUSION: The bilateral mid and lower lung opacities seen on chest x-ray represent a combination of lower lobe consolidation and moderate bilateral pleural effusions, right greater than left. Ed Draper MD Abdomen X-Ray 02/25/18 0000 Signed Impressions: Service Date/Time: Sunday, February 25, 2018 10:46 - CONCLUSION: Placement of right pigtail stent catheter with the possible ureteral calculus along the proximal catheter. Van Minor MD Abdomen/Pelvis CT 02/24/18 0000 Signed Impressions: Service Date/Time: Saturday, February 24, 2018 22:45 - CONCLUSION: Mild hydronephrosis of the right kidney with a 4 x 6 mm proximal ureteral stone. Multiple cysts throughout both kidneys. Thomas Carter MD Objective Remarks GENERAL: 72-year-old male currently nasal cannula in no acute distress SKIN: Warm and dry. CARDIOVASCULAR: irregularly irregular rhythm. afib. S1, S2 no S4. RESPIRATORY: Air entry equal bilaterally. Coarse sounds predominantly at the bases GASTROINTESTINAL: Abdomen soft, obese, non-tender, nondistended. MUSCULOSKELETAL: No cyanosis. Well perfused. Trace to 1+ bilateral lower extremity edema NEURO EXAM: Cranial nerves II through XII grossly intact. Strength is equal and symmetric bilaterally. Normal sensation Procedures Right retrograde double-J stent placement 6 [place]ian 26 cm A/P Problem List: (1) Sepsis ICD Code: A41.9 - Sepsis, unspecified organism Assessment and Plan Neuro/Psych: Acetaminophen 650 mg p.o. every 6 hours as needed fever Hydrocodone/acetaminophen 5/325 1 tablet every 4 hours as needed pain 1 through 5 Morphine sulfate 2 mg IV every 2 hours as needed pain 6-10 CV: Atrial fibrillation currently in sinus bradycardia History of hypertension Acute systolic heart failure? Unknown baseline Dyslipidemia Holding home medications metoprolol succinate/hydrochlorothiazide 100 mg/12.5 mg 1 tablet daily, amlodipine 2.5 mg daily for hypertension Holding losartan potassium 50 mg p.o. twice daily Continue amiodarone 200 mg twice daily Continue diuresis furosemide switch to p.o. Echocardiogram 02/28 revealed EF 40%. LVH. Resp: Acute hypoxemic respiratory failure -extubated 03/06 Bilateral pleural effusions Nasal cannula to maintain saturations greater than equal to 92%. Currently on 2 L Incentive spirometry while awake Albuterol/ipratropium aerosols every 6 hours with albuterol aerosols every 2 hours as needed dyspnea PEP every 6 hours Follow-up chest x-ray in a.m. 03/09 revealed improving bilateral pulmonary infiltrates GI: Elevated AST Hypoalbuminemia Speech therapy to evaluate and treat Famotidine for GI prophylaxis Docusate sodium/senna 1 tablet twice daily for bowel regimen : BPH Right UPJ calculus status post right retrograde JJ stent placement 02/25 #6 [place] by [address] [place] Holding Silodosin 8 mg daily for BPH Holding solifenacin 10 mg p.o. daily for overactive bladder Discontinue Barron catheter Endo: Hyperglycemia of critical illness Diabetes Mellitus type II Holding insulin detemir 8 units subcu twice daily but will continue with with NovoLog sliding scale insulin every before meals/at bedtime/high regimen Renal: Creatinine currently within normal limits Monitor urine output Heme: Normocytic anemia Chronic warfarin use Continue heparin drip and restart warfarin 10 mg by mouth daily INR still subtherapeutic Monitor CBC daily. Follow trend ID: Enterococcus faecalis sepsis likely source. ECHO w/o vegetation Currently on ampicillin/sulbactam 1.5 g IV every 6 hours 14 days therapy last dose tomorrow. Pertinent cultures 02/24 -blood cultures 2 -Enterococcus faecalis Blood cultures 03/02 no growth to date MSK: PT evaluate and treat FEN: Replace electrolytes as clinically indicated Access -Utilize peripheral IV. Central line if indicated Prophylaxis -GI -famotidine -DVT -SCD/heparin drip Discharge Planning Stable for discharge to [facility] MD Mar 11, 2018 12:11
[2018-03-11] MEDS: WARFARIN SOD 7.5 MG TAB PO SCH (15:59)
[2018-03-11] MEDS: PRAVASTATIN SOD 40 MG TAB PO SCH (20:01)
[2018-03-12] VITALS (8 sets, daily range): BP systolic 116–146; BP diastolic 60–76; PULSE 75–84; RESP 17–22; TEMP 97.4–98.7; O2SAT 93–97
[2018-03-12] MEDS: AMPICILLIN-SULBACTAM INJ 1,500 MG in SODIUM CHLORIDE 0.9% INJ 100 ML IV SCH (01:06)
[2018-03-12] MEDS: CHLORHEXIDINE GLUCONATE 2 % 1 PACK (2 CLOTHS) TOP SCH (01:08)
[2018-03-12 01:45] LABS: HEMATOCRIT 34.5 % (39.0-51.0); HEMOGLOBIN 11.5 GM/DL (13.0-17.0); MEAN CELL VOLUME 85.7 FL (80.0-100.0); MEAN CORPUSCULAR HEMOGLOBIN 28.7 PG (27.0-34.0); MEAN CORPUSCULAR HGB CONC 33.5 % (32.0-36.0); MEAN PLATELET VOLUME 11.4 FL (7.0-11.0); PLATELET COUNT 183 TH/MM3 (150-450); RED BLOOD COUNT 4.02 MIL/MM3 (4.50-5.90); RED CELL DISTRIBUTION WIDTH 14.4 % (11.6-17.2); WHITE BLOOD COUNT 6.8 TH/MM3 (4.0-11.0)
[2018-03-12 01:51] LABS: INTERNATIONAL NORMALIZED RATIO 1.4 RATIO; PROTHROMBIN TIME - PATIENT 13.8 SEC (9.8-11.6)
[2018-03-12] MEDS: RESP: ALBUTEROL 2.5 MG/IPRATROPIUM 0.5 MG NEB (SCH) NEB ×4 (04:34→20:18)
[2018-03-12] MEDS: CHLORHEXIDINE 0.12% (ORAL KIT) 15 ML CUP MT SCH ×2 (07:02→21:01)
[2018-03-12] MEDS: INSULIN ASPART SUPPLEMENTAL SCALE SQ SCH ×4 (07:03→21:01)
[2018-03-12] MEDS: DOCUSATE SODIUM 50 MG/SENNA 8.6 MG TAB PO SCH ×2 (08:15→21:00)
[2018-03-12] MEDS: FAMOTIDINE 20 MG TAB PO SCH ×2 (08:16→21:00)
[2018-03-12] MEDS: FUROSEMIDE 20 MG TAB PO SCH (08:16)
[2018-03-12] MEDS: POTASSIUM CHLORIDE 20 MEQ CONTROLLED RELEASE TAB PO SCH (08:16)
[2018-03-12] MEDS: AMIODARONE 200 MG TAB PO SCH ×2 (08:16→21:01)
[2018-03-12] MEDS: SODIUM CHLORIDE 0.9% FLUSH 10 ML FLUSH IV FLUSH SCH ×2 (08:17→21:01)
[2018-03-12] MEDS ORDERED: AMLO10TA2 PO (11:00)
[2018-03-12] MEDS ORDERED: MULTTAB67 PO (11:06)
[2018-03-12] MEDS ORDERED: VITA250C3 CHEW (11:07)
[2018-03-12] MEDS ORDERED: CAPZ0.1C TOPICAL (11:07)
[2018-03-12] MEDS ORDERED: HYDR1OIN25 (11:08)
--- NOTE | 2018-03-12 13:33 | HHI.PR ---
Subjective Remarks Follow-up sepsis. He is doing okay increasing exercise tolerance ambulating in hallway discussed with nursing Objective Vitals Vital Signs Date Time Temp Pulse Resp B/P (MAP) Pulse Ox O2 Delivery O2 Flow Rate FiO2 03/12/18 12:00 97.9 75 18 146/76 (99) 94 03/12/18 08:00 Room Air 03/12/18 08:00 98.2 84 17 116/65 (82) 97 03/12/18 04:00 98.3 84 20 130/60 (83) 95 03/12/18 00:00 98.7 83 22 141/69 (93) 95 03/11/18 20:26 92 21 03/11/18 20:10 Room Air 03/11/18 20:00 98.1 81 22 142/72 (95) 93 03/11/18 16:00 97.8 79 18 130/78 (95) 95 03/11/18 15:00 96 Room Air I/O 03/11/18 03/11/18 03/11/18 03/12/18 03/12/18 03/12/18 07:00 15:00 23:00 07:00 15:00 23:00 Intake Total 100 ml 200 ml 1330 ml 240 ml Balance 100 ml 200 ml 1330 ml 240 ml Intake Oral 1080 ml 240 ml IV Total 100 ml 200 ml 250 ml # Voids 2 8 3 # Bowel Movements 1 2 Result Diagram: 03/12/18 0104 03/11/18 0301 Imaging Last Impressions Chest X-Ray 03/09/18 0600 Signed Impressions: Service Date/Time: February 02:55 - CONCLUSION: Improving bibasilar densities. Oscar Diallo MD Chest CT 03/02/18 0000 Signed Impressions: Service Date/Time: February 14:24 - CONCLUSION: The bilateral mid and lower lung opacities seen on chest x-ray represent a combination of lower lobe consolidation and moderate bilateral pleural effusions, right greater than left. Ed Draper MD Abdomen X-Ray 02/25/18 0000 Signed Impressions: Service Date/Time: Sunday, February 25, 2018 10:46 - CONCLUSION: Placement of right pigtail stent catheter with the possible ureteral calculus along the proximal catheter. Van Minor MD Abdomen/Pelvis CT 02/24/18 0000 Signed Impressions: Service Date/Time: Saturday, February 24, 2018 22:45 - CONCLUSION: Mild hydronephrosis of the right kidney with a 4 x 6 mm proximal ureteral stone. Multiple cysts throughout both kidneys. Thomas Carter MD Objective Remarks GENERAL: 72-year-old male currently room air in no acute distress SKIN: Warm and dry. CARDIOVASCULAR: irregularly irregular rhythm. afib. S1, S2 no S4. RESPIRATORY: Air entry equal bilaterally. Coarse sounds predominantly at the bases GASTROINTESTINAL: Abdomen soft, obese, non-tender, nondistended. MUSCULOSKELETAL: No cyanosis. Well perfused. Trace to 1+ bilateral lower extremity edema NEURO EXAM: Cranial nerves II through XII grossly intact. Strength is equal and symmetric bilaterally. Normal sensation Procedures Right retrograde double-J stent placement 6 Macedonian 26 cm A/P Problem List: (1) Sepsis ICD Code: A41.9 - Sepsis, unspecified organism Assessment and Plan Neuro/Psych: Acetaminophen 650 mg p.o. every 6 hours as needed fever Hydrocodone/acetaminophen 5/325 1 tablet every 4 hours as needed pain 1 through 5 Morphine sulfate 2 mg IV every 2 hours as needed pain 6-10 CV: Atrial fibrillation currently in sinus bradycardia History of hypertension Acute systolic heart failure? Unknown baseline Dyslipidemia Holding home medications metoprolol succinate/hydrochlorothiazide 100 mg/12.5 mg 1 tablet daily, amlodipine 2.5 mg daily for hypertension BP slightly up restart losartan potassium 50 mg p.o. twice daily Continue amiodarone 200 mg twice daily Continue diuresis furosemide switch to p.o. Echocardiogram 02/28 revealed EF 40%. LVH. Resp: Acute hypoxemic respiratory failure -extubated 03/06 Bilateral pleural effusions Nasal cannula to maintain saturations greater than equal to 92%. Currently on room air Incentive spirometry while awake Albuterol/ipratropium aerosols every 6 hours with albuterol aerosols every 2 hours as needed dyspnea PEP every 6 hours Follow-up chest x-ray in a.m. 03/09 revealed improving bilateral pulmonary infiltrates GI: Elevated AST Hypoalbuminemia Speech therapy to evaluate and treat Famotidine for GI prophylaxis Docusate sodium/senna 1 tablet twice daily for bowel regimen : BPH Right UPJ calculus status post right retrograde JJ stent placement 02/25 #6 [place] by [address] [place] Restart silodosin 8 mg daily for BPH Restart solifenacin 10 mg p.o. daily for overactive bladder Discontinue Barron catheter Endo: Hyperglycemia of critical illness Diabetes Mellitus type II Restart metformin continue with with NovoLog sliding scale insulin every before meals/at bedtime/high regimen Renal: Creatinine currently within normal limits Monitor urine output Heme: Normocytic anemia Chronic warfarin use Continue heparin drip and restart warfarin home dose daily INR still subtherapeutic Monitor CBC daily. Follow trend ID: Enterococcus faecalis sepsis likely source. ECHO w/o vegetation Currently on ampicillin/sulbactam 1.5 g IV every 6 hours 14 days therapy last dose today Pertinent cultures 02/24 -blood cultures 2 -Enterococcus faecalis Blood cultures 03/02 no growth to date MSK: PT evaluate and treat FEN: Replace electrolytes as clinically indicated Access -Utilize peripheral IV. Central line if indicated Prophylaxis -GI -famotidine -DVT -SCD/heparin drip Discharge Planning Stable for discharge to [place] when insurance authorization obtained. Follow- up with PT tomorrow may be discharged home if improved exercise tolerance Sascha Matamoros MD Mar 12, 2018 13:33
[2018-03-12] MEDS ORDERED: COUM10TA PO (13:37)
[2018-03-12] MEDS ORDERED: COUM7.5T PO (13:37)
[2018-03-12] MEDS: HEPARIN-D5W 25,000 U/250 ML 250 ML IV PRN (15:12)
[2018-03-12] MEDS: WARFARIN SOD 10 MG TAB PO SCH (15:41)
[2018-03-12] MEDS: metFORMIN HCL 500 MG TAB PO SCH (17:37)
[2018-03-12] MEDS: PRAVASTATIN SOD 40 MG TAB PO SCH (20:59)
[2018-03-12] MEDS: LOSARTAN 50 MG TAB PO SCH (21:01)
[2018-03-12] MEDS: TEMAZEPAM 15 MG CAP PO PRN (23:02)
[2018-03-13] MEDS: RESP: ALBUTEROL 2.5 MG/IPRATROPIUM 0.5 MG NEB (SCH) NEB ×2 (03:02→07:54)
[2018-03-13] MEDS: CHLORHEXIDINE GLUCONATE 2 % 1 PACK (2 CLOTHS) TOP SCH (03:24)
[2018-03-13] MEDS: HEPARIN-D5W 25,000 U/250 ML 250 ML IV PRN ×2 (07:32→23:16)
[2018-03-13 07:55] VITALS: O2SAT 95
[2018-03-13 08:00] VITALS: BP 133/71; PULSE 77; RESP 17; TEMP 98.1; O2SAT 94
[2018-03-13] MEDS: CHLORHEXIDINE 0.12% (ORAL KIT) 15 ML CUP MT SCH ×2 (08:00→20:00)
[2018-03-13] MEDS: INSULIN ASPART SUPPLEMENTAL SCALE SQ SCH ×4 (08:00→20:46)
[2018-03-13] MEDS: SODIUM CHLORIDE 0.9% FLUSH 10 ML FLUSH IV FLUSH SCH ×2 (09:00→20:50)
[2018-03-13] MEDS: DOCUSATE SODIUM 50 MG/SENNA 8.6 MG TAB PO SCH ×2 (10:16→20:47)
[2018-03-13] MEDS: FAMOTIDINE 20 MG TAB PO SCH ×2 (10:16→20:47)
[2018-03-13] MEDS: TOLTERODINE TARTRATE 4 MG CAP LA PO SCH (10:16)
[2018-03-13] MEDS: LOSARTAN 50 MG TAB PO SCH ×2 (10:17→20:47)
[2018-03-13] MEDS: metFORMIN HCL 500 MG TAB PO SCH ×2 (10:17→18:12)
[2018-03-13] MEDS: TAMSULOSIN HCL 0.4 MG CAP PO SCH (10:17)
[2018-03-13] MEDS: FUROSEMIDE 20 MG TAB PO SCH (10:17)
[2018-03-13] MEDS: AMIODARONE 200 MG TAB PO SCH ×2 (10:17→20:47)
[2018-03-13] MEDS: POTASSIUM CHLORIDE 20 MEQ CONTROLLED RELEASE TAB PO SCH (10:19)
--- NOTE | 2018-03-13 11:47 | HHI.PR ---
Subjective Remarks Follow-up sepsis and A. fib. Patient is doing well denies any complaints awaiting insurance authorization. Discussed with nursing Objective Vitals Vital Signs Date Time Temp Pulse Resp B/P (MAP) Pulse Ox O2 Delivery O2 Flow Rate FiO2 03/13/18 08:00 98.1 77 17 133/71 (91) 94 03/13/18 07:55 95 21 03/12/18 20:19 94 03/12/18 20:00 97.4 82 18 145/73 (97) 97 03/12/18 19:20 Room Air 03/12/18 16:26 94 21 03/12/18 16:00 97.8 77 17 138/72 (94) 93 03/12/18 12:00 97.9 75 18 146/76 (99) 94 I/O 03/12/18 03/12/18 03/12/18 03/13/18 03/13/18 03/13/18 06:59 14:59 22:59 06:59 14:59 22:59 Intake Total 240 ml 1200 ml 120 ml Balance 240 ml 1200 ml 120 ml Intake Oral 240 ml 1200 ml 120 ml # Voids 3 10 2 # Bowel Movements 2 1 1 Result Diagram: 03/12/18 0104 03/11/18 0301 Imaging Last Impressions Chest X-Ray 03/09/18 0600 Signed Impressions: Service Date/Time: February 02:55 - CONCLUSION: Improving bibasilar densities. Oscar Diallo MD Chest CT 03/02/18 0000 Signed Impressions: Service Date/Time: February 14:24 - CONCLUSION: The bilateral mid and lower lung opacities seen on chest x-ray represent a combination of lower lobe consolidation and moderate bilateral pleural effusions, right greater than left. Ed Draper MD Abdomen X-Ray 02/25/18 0000 Signed Impressions: Service Date/Time: Sunday, February 25, 2018 10:46 - CONCLUSION: Placement of right pigtail stent catheter with the possible ureteral calculus along the proximal catheter. Van Minor MD Abdomen/Pelvis CT 02/24/18 0000 Signed Impressions: Service Date/Time: Saturday, February 24, 2018 22:45 - CONCLUSION: Mild hydronephrosis of the right kidney with a 4 x 6 mm proximal ureteral stone. Multiple cysts throughout both kidneys. Thomas Carter MD Objective Remarks GENERAL: 72-year-old male currently room air in no acute distress SKIN: Warm and dry. CARDIOVASCULAR: irregularly irregular rhythm. afib. S1, S2 no S4. RESPIRATORY: Air entry equal bilaterally. Coarse sounds predominantly at the bases GASTROINTESTINAL: Abdomen soft, obese, non-tender, nondistended. MUSCULOSKELETAL: No cyanosis. Well perfused. Trace to 1+ bilateral lower extremity edema which is improving NEURO EXAM: Cranial nerves II through XII grossly intact. Strength is equal and symmetric bilaterally. Normal sensation Procedures Right retrograde double-J stent placement 6 Solomon Islander 26 cm A/P Problem List: (1) Sepsis ICD Code: A41.9 - Sepsis, unspecified organism Assessment and Plan Neuro/Psych: Acetaminophen 650 mg p.o. every 6 hours as needed fever Hydrocodone/acetaminophen 5/325 1 tablet every 4 hours as needed pain 1 through 5 Morphine sulfate 2 mg IV every 2 hours as needed pain 6-10 CV: Atrial fibrillation currently in sinus bradycardia History of hypertension Acute systolic heart failure? Unknown baseline Dyslipidemia Holding home medications metoprolol succinate/hydrochlorothiazide 100 mg/12.5 mg 1 tablet daily, amlodipine 2.5 mg daily for hypertension BP slightly up restart losartan potassium 50 mg p.o. twice daily Continue amiodarone 200 mg twice daily Continue diuresis furosemide switched to p.o. Echocardiogram 02/28 revealed EF 40%. LVH. Resp: Acute hypoxemic respiratory failure -extubated 03/06 Bilateral pleural effusions Nasal cannula to maintain saturations greater than equal to 92%. Currently on room air Incentive spirometry while awake Albuterol/ipratropium aerosols every 6 hours with albuterol aerosols every 2 hours as needed dyspnea PEP every 6 hours Follow-up chest x-ray in a.m. 03/09 revealed improving bilateral pulmonary infiltrates GI: Elevated AST Hypoalbuminemia Speech therapy to evaluate and treat Famotidine for GI prophylaxis Docusate sodium/senna 1 tablet twice daily for bowel regimen : BPH Right UPJ calculus status post right retrograde JJ stent placement 02/25 #6 [place] Islander by [address] [place] Restart silodosin 8 mg daily for BPH Restart solifenacin 10 mg p.o. daily for overactive bladder Discontinue Barron catheter Endo: Hyperglycemia of critical illness Diabetes Mellitus type II Restart metformin continue with with NovoLog sliding scale insulin every before meals/at bedtime/high regimen Renal: Creatinine currently within normal limits Monitor urine output Heme: Normocytic anemia Chronic warfarin use Continue heparin drip and restart warfarin home dose daily INR still subtherapeutic Monitor CBC daily. Follow trend ID: Enterococcus faecalis sepsis likely source. ECHO w/o vegetation Status post ampicillin/sulbactam 1.5 g IV every 6 hours 14 days therapy Pertinent cultures 02/24 -blood cultures 2 -Enterococcus faecalis Blood cultures 03/02 no growth to date MSK: PT evaluate and treat FEN: Replace electrolytes as clinically indicated Access -Utilize peripheral IV. Central line if indicated Prophylaxis -GI -famotidine -DVT -SCD/heparin drip (switch to Lovenox if still subtherapeutic after discharge) Discharge Planning Stable for discharge to [facility] when insurance authorization obtained. If not, [facility] Sascha Matamoros MD Mar 13, 2018 11:47
[2018-03-13 12:00] VITALS: BP 131/79; PULSE 79; RESP 17; TEMP 97.7; O2SAT 94
[2018-03-13 12:12] LABS: INTERNATIONAL NORMALIZED RATIO 1.6 RATIO; PROTHROMBIN TIME - PATIENT 16.3 SEC (9.8-11.6)
[2018-03-13] MEDS ORDERED: ENOX120P SQ (15:24)
--- NOTE | 2018-03-13 15:28 | HHI.DS ---
Discharge Summary Admission Date Feb 24, 2018 at 23:36 Discharge Date: Mar 14, 2018 Admitting Diagnosis Obstructing stone septic and elevated creatinine (1) Sepsis ICD Code: A41.9 - Sepsis, unspecified organism Diagnosis: Principal Procedures Right retrograde double-J stent placement 6 Malay 26 cm Brief History - From Admission 72-year-old male with history of A. fib, hypertension, diabetes, presents for evaluation of altered mental status and fever. Patient has no complaints however he is a poor historian. He appears mildly lethargic. His states 2 days ago he began with a back pain and nausea with vomiting. He developed a fever. T-max at home was 140. He has not been acting himself since. Patient has not had a bowel movement in 3 days per his . He has had 2 episodes of hematuria 5 days ago. He has had no cough or chest congestion. There are no other symptoms to report at this time. CBC/BMP: 03/12/18 0104 03/11/18 0301 Significant Findings Laboratory Tests Test 03/10/18 20:32 03/11/18 03:01 03/11/18 11:10 03/11/18 18:25 Activated Partial Thromboplast Time 33.4 SEC (24.3-30.1) 33.4 SEC (24.3-30.1) 35.9 SEC (24.3-30.1) 39.8 SEC (24.3-30.1) Red Blood Count 4.14 MIL/MM3 (4.50-5.90) Hemoglobin 11.8 GM/DL (13.0-17.0) Hematocrit 35.5 % (39.0-51.0) Prothrombin Time 13.0 SEC (9.8-11.6) 12.5 SEC (9.8-11.6) Random Glucose 111 MG/DL (74-106) Calcium Level 8.3 MG/DL (8.5-10.1) Chloride Level 109 MEQ/L (98-107) Estimat Glomerular Filtration Rate 63 ML/MIN (>89) Test 03/12/18 01:04 03/12/18 08:18 03/13/18 09:05 Red Blood Count 4.02 MIL/MM3 (4.50-5.90) Hemoglobin 11.5 GM/DL (13.0-17.0) Hematocrit 34.5 % (39.0-51.0) Mean Platelet Volume 11.4 FL (7.0-11.0) Prothrombin Time 13.8 SEC (9.8-11.6) 16.3 SEC (9.8-11.6) Activated Partial Thromboplast Time 43.6 SEC (24.3-30.1) 43.6 SEC (24.3-30.1) 48.6 SEC (24.3-30.1) Imaging Last Impressions Chest X-Ray 03/09/18 0600 Signed Impressions: Service Date/Time: February 02:55 - CONCLUSION: Improving bibasilar densities. Oscar Diallo MD Chest CT 03/02/18 0000 Signed Impressions: Service Date/Time: February 14:24 - CONCLUSION: The bilateral mid and lower lung opacities seen on chest x-ray represent a combination of lower lobe consolidation and moderate bilateral pleural effusions, right greater than left. Ed Draper MD Abdomen X-Ray 02/25/18 0000 Signed Impressions: Service Date/Time: Sunday, February 25, 2018 10:46 - CONCLUSION: Placement of right pigtail stent catheter with the possible ureteral calculus along the proximal catheter. Van Minor MD Abdomen/Pelvis CT 02/24/18 0000 Signed Impressions: Service Date/Time: Saturday, February 24, 2018 22:45 - CONCLUSION: Mild hydronephrosis of the right kidney with a 4 x 6 mm proximal ureteral stone. Multiple cysts throughout both kidneys. Thomas Carter MD PE at Discharge GENERAL: 72-year-old male currently room air in no acute distress SKIN: Warm and dry. CARDIOVASCULAR: irregularly irregular rhythm. afib. S1, S2 no S4. RESPIRATORY: Air entry equal bilaterally. Coarse sounds predominantly at the bases GASTROINTESTINAL: Abdomen soft, obese, non-tender, nondistended. MUSCULOSKELETAL: No cyanosis. Well perfused. Trace to 1+ bilateral lower extremity edema which is improving NEURO EXAM: Cranial nerves II through XII grossly intact. Strength is equal and symmetric bilaterally. Normal sensation Hospital Course Neuro/Psych: Acetaminophen 650 mg p.o. every 6 hours as needed fever Hydrocodone/acetaminophen 5/325 1 tablet every 4 hours as needed pain 1 through 5 Morphine sulfate 2 mg IV every 2 hours as needed pain 6-10 CV: Atrial fibrillation currently in sinus bradycardia History of hypertension Acute systolic heart failure? Unknown baseline Dyslipidemia Holding home medications metoprolol succinate/hydrochlorothiazide 100 mg/12.5 mg 1 tablet daily, amlodipine 2.5 mg daily for hypertension BP slightly up restart losartan potassium 50 mg p.o. twice daily Continue amiodarone 200 mg twice daily Continue diuresis furosemide switched to p.o. Echocardiogram 02/28 revealed EF 40%. LVH. Resp: Acute hypoxemic respiratory failure -extubated 03/06 Bilateral pleural effusions Nasal cannula to maintain saturations greater than equal to 92%. Currently on room air Incentive spirometry while awake Albuterol/ipratropium aerosols every 6 hours with albuterol aerosols every 2 hours as needed dyspnea PEP every 6 hours Follow-up chest x-ray in a.m. 03/09 revealed improving bilateral pulmonary infiltrates GI: Elevated AST Hypoalbuminemia Speech therapy to evaluate and treat Famotidine for GI prophylaxis Docusate sodium/senna 1 tablet twice daily for bowel regimen : BPH Right UPJ calculus status post right retrograde JJ stent placement 02/25 #6 [place] by [address] [place] Restart silodosin 8 mg daily for BPH Restart solifenacin 10 mg p.o. daily for overactive bladder Discontinue Barron catheter Endo: Hyperglycemia of critical illness Diabetes Mellitus type II Restart metformin continue with with NovoLog sliding scale insulin every before meals/at bedtime/high regimen Renal: Creatinine currently within normal limits Monitor urine output Heme: Normocytic anemia Chronic warfarin use Continue heparin drip and restart warfarin home dose daily INR still subtherapeutic Monitor CBC daily. Follow trend ID: Enterococcus faecalis sepsis likely source. ECHO w/o vegetation Status post ampicillin/sulbactam 1.5 g IV every 6 hours 14 days therapy Pertinent cultures 02/24 -blood cultures 2 -Enterococcus faecalis Blood cultures 03/02 no growth to date MSK: PT evaluate and treat FEN: Replace electrolytes as clinically indicated Access -Utilize peripheral IV. Central line if indicated Prophylaxis -GI -famotidine -DVT -SCD/heparin drip (switch to Lovenox if still subtherapeutic after discharge) Pt Condition on Discharge: Stable Discharge Disposition: Discharge to SNF Discharge Time: > 30 minutes Discharge Instructions DIET: Follow Instructions for: Diabetic Diet Activities you can perform: Regular-No Restrictions Activities to Avoid: Driving Follow up Referrals: PCP Follow-up - 1 Week Urology - 1 Week New Orders: BASIC METABOLIC PROF - 03/15/18 PT/INR New Medications: Enoxaparin Inj (Lovenox Inj) 120 Mg/0.8 Ml Syr 120 MG SQ DAILY for Blood Clot Prevention, #14 SYRINGE 0 Refills dc when INR > 2 Amiodarone (Amiodarone) 200 Mg Tab 200 MG PO BID for Regulate Heart Beat, #60 TAB Furosemide (Furosemide) 20 Mg Tab 20 MG PO DAILY for Blood Pressure Management, #30 TAB Potassium Chloride Microencaps (Potassium Chloride Microencaps) 20 Meq Tab 20 MEQ PO DAILY for Electrolyte Replacement, #30 TAB Warfarin (Coumadin) 7.5 Mg Tab 15 MG PO MoThSa@1600 for Prevent Blood Clot, #30 TAB Warfarin (Coumadin) 10 Mg Tab 10 MG PO SuTuWeFr@1600 for Prevent Blood Clot, #31 TAB [Albuterol-Ipratropium Neb] () 1 NEBU 1 AMPULE NEB Q6HR NEB for Breathing Treatment, #30 NEBULE Continued Medications: Ascorbic Acid (Vitamin C) 250 Mg Chew 250 MG CHEW BID for Nutritional Supplement, #60 TAB 0 Refills Capsaicin Topical (Capzasin-Hp Topical) 0.1% Cream 1 APPLIC TOPICAL TID for Pain Management, #1 TUBE 0 Refills Hydrocortisone (Topical) (Hydrocortisone 1% in Abso) 1 % Oin Losartan (Losartan) 50 Mg Tab 50 MG PO BID for Blood Pressure Management, #60 TAB 0 Refills Metformin (Metformin) 500 Mg Tab 500 MG PO BIDPC for Blood Sugar Management, #60 TAB 0 Refills Multiple Vitamin (Multiple Vitamin) 1 Tab 1 TAB PO DAILY for Nutritional Supplement, TAB 0 Refills Silodosin (Rapaflo) 8 Mg Cap 8 MG PO DAILY for Manage Prostate Problems, #30 CAP 0 Refills Simvastatin (Simvastatin) 40 Mg Tab 40 MG PO HS for Cholesterol Management, #30 TAB 0 Refills Solifenacin (Vesicare) 10 Mg Tab 10 MG PO DAILY for Urinary Symptom Managemen, #30 TAB 0 Refills Discontinued Medications: Warfarin (Warfarin) 10 Mg Tab 10 MG PO DAILY for Blood Clot Prevention, #30 TAB 0 Refills Sascha Matamoros MD Mar 13, 2018 15:28
[2018-03-13 16:00] VITALS: BP 143/75; PULSE 75; RESP 17; TEMP 94.4; O2SAT 94
[2018-03-13] MEDS ORDERED: WARFARIN SOD 7.5 MG TAB PO SCH (16:00)
[2018-03-13 20:00] VITALS: BP 143/77; PULSE 87; RESP 17; TEMP 97.2; O2SAT 93
[2018-03-13] MEDS: PRAVASTATIN SOD 40 MG TAB PO SCH (20:47)
[2018-03-14] VITALS: BP 128/76; PULSE 81; RESP 17; TEMP 97.2; O2SAT 95
[2018-03-14] MEDS: CHLORHEXIDINE GLUCONATE 2 % 1 PACK (2 CLOTHS) TOP SCH (04:00)
[2018-03-14 05:01] LABS: INTERNATIONAL NORMALIZED RATIO 1.6 RATIO; PROTHROMBIN TIME - PATIENT 16.4 SEC (9.8-11.6)
[2018-03-14 08:00] VITALS: BP 128/82; PULSE 85; RESP 17; TEMP 98; O2SAT 94
[2018-03-14] MEDS: INSULIN ASPART SUPPLEMENTAL SCALE SQ SCH ×3 (08:00→16:27)
[2018-03-14] MEDS: CHLORHEXIDINE 0.12% (ORAL KIT) 15 ML CUP MT SCH (08:00)
[2018-03-14] MEDS: SODIUM CHLORIDE 0.9% FLUSH 10 ML FLUSH IV FLUSH SCH (09:00)
[2018-03-14] MEDS: DOCUSATE SODIUM 50 MG/SENNA 8.6 MG TAB PO SCH (09:00)
[2018-03-14] MEDS: POTASSIUM CHLORIDE 20 MEQ CONTROLLED RELEASE TAB PO SCH (09:20)
[2018-03-14] MEDS: AMIODARONE 200 MG TAB PO SCH (09:21)
[2018-03-14] MEDS: LOSARTAN 50 MG TAB PO SCH (09:21)
[2018-03-14] MEDS: TAMSULOSIN HCL 0.4 MG CAP PO SCH (09:21)
[2018-03-14] MEDS: TOLTERODINE TARTRATE 4 MG CAP LA PO SCH (09:21)
[2018-03-14] MEDS: FUROSEMIDE 20 MG TAB PO SCH (09:21)
[2018-03-14] MEDS: FAMOTIDINE 20 MG TAB PO SCH (09:21)
[2018-03-14] MEDS: metFORMIN HCL 500 MG TAB PO SCH (09:21)
[2018-03-14 11:37] VITALS: O2SAT 94
[2018-03-14 12:00] VITALS: BP 125/67; PULSE 97; RESP 17; TEMP 98.5; O2SAT 95
--- NOTE | 2018-03-14 12:32 | HHI.PR ---
Objective Vitals Vital Signs Date Time Temp Pulse Resp B/P (MAP) Pulse Ox O2 Delivery O2 Flow Rate FiO2 03/14/18 11:37 94 03/14/18 08:00 98.0 85 17 128/82 (97) 94 03/14/18 00:00 97.2 81 17 128/76 (93) 95 03/13/18 20:00 97.2 87 17 143/77 (99) 93 03/13/18 16:00 94.4 75 17 143/75 (97) 94 I/O 03/13/18 03/13/18 03/13/18 03/14/18 03/14/18 03/14/18 07:00 15:00 23:00 07:00 15:00 23:00 Intake Total 120 ml 250 ml 900 ml 586 ml Balance 120 ml 250 ml 900 ml 586 ml Intake Oral 120 ml 900 ml 240 ml IV Total 250 ml 346 ml # Voids 2 4 4 # Bowel Movements 1 1 1 Result Diagram: 03/12/18 0104 03/11/18 0301 Imaging Last Impressions Chest X-Ray 03/09/18 0600 Signed Impressions: Service Date/Time: February 02:55 - CONCLUSION: Improving bibasilar densities. Oscar Diallo MD Chest CT 03/02/18 0000 Signed Impressions: Service Date/Time: February 14:24 - CONCLUSION: The bilateral mid and lower lung opacities seen on chest x-ray represent a combination of lower lobe consolidation and moderate bilateral pleural effusions, right greater than left. Ed Draper MD Abdomen X-Ray 02/25/18 0000 Signed Impressions: Service Date/Time: Sunday, February 25, 2018 10:46 - CONCLUSION: Placement of right pigtail stent catheter with the possible ureteral calculus along the proximal catheter. Van Minor MD Abdomen/Pelvis CT 02/24/18 0000 Signed Impressions: Service Date/Time: Saturday, February 24, 2018 22:45 - CONCLUSION: Mild hydronephrosis of the right kidney with a 4 x 6 mm proximal ureteral stone. Multiple cysts throughout both kidneys. Thomas Carter MD Objective Remarks GENERAL: 72-year-old male currently room air in no acute distress SKIN: Warm and dry. CARDIOVASCULAR: irregularly irregular rhythm. afib. S1, S2 no S4. RESPIRATORY: Air entry equal bilaterally. Coarse sounds predominantly at the bases GASTROINTESTINAL: Abdomen soft, obese, non-tender, nondistended. MUSCULOSKELETAL: No cyanosis. Well perfused. Trace to 1+ bilateral lower extremity edema which is improving NEURO EXAM: Cranial nerves II through XII grossly intact. Strength is equal and symmetric bilaterally. Normal sensation Procedures Right retrograde double-J stent placement 6 Chinese 26 cm A/P Problem List: (1) Sepsis ICD Code: A41.9 - Sepsis, unspecified organism Assessment and Plan Neuro/Psych: Acetaminophen 650 mg p.o. every 6 hours as needed fever Hydrocodone/acetaminophen 5/325 1 tablet every 4 hours as needed pain 1 through 5 Morphine sulfate 2 mg IV every 2 hours as needed pain 6-10 CV: Atrial fibrillation currently in sinus bradycardia History of hypertension Acute systolic heart failure? Unknown baseline Dyslipidemia Holding home medications metoprolol succinate/hydrochlorothiazide 100 mg/12.5 mg 1 tablet daily, amlodipine 2.5 mg daily for hypertension BP slightly up restart losartan potassium 50 mg p.o. twice daily Continue amiodarone 200 mg twice daily Continue diuresis furosemide switched to p.o. Echocardiogram 02/28 revealed EF 40%. LVH. Resp: Acute hypoxemic respiratory failure -extubated 03/06 Bilateral pleural effusions Nasal cannula to maintain saturations greater than equal to 92%. Currently on room air Incentive spirometry while awake Albuterol/ipratropium aerosols every 6 hours with albuterol aerosols every 2 hours as needed dyspnea PEP every 6 hours Follow-up chest x-ray in a.m. 03/09 revealed improving bilateral pulmonary infiltrates GI: Elevated AST Hypoalbuminemia Speech therapy to evaluate and treat Famotidine for GI prophylaxis Docusate sodium/senna 1 tablet twice daily for bowel regimen : BPH Right UPJ calculus status post right retrograde JJ stent placement 02/25 #6 Chinese by [address] [place] Restart silodosin 8 mg daily for BPH Restart solifenacin 10 mg p.o. daily for overactive bladder Discontinue Barron catheter Endo: Hyperglycemia of critical illness Diabetes Mellitus type II Restart metformin continue with with NovoLog sliding scale insulin every before meals/at bedtime/high regimen Renal: Creatinine currently within normal limits Monitor urine output Heme: Normocytic anemia Chronic warfarin use Continue heparin drip and restart warfarin home dose daily INR still subtherapeutic Monitor CBC daily. Follow trend ID: Enterococcus faecalis sepsis likely source. ECHO w/o vegetation Status post ampicillin/sulbactam 1.5 g IV every 6 hours 14 days therapy Pertinent cultures 02/24 -blood cultures 2 -Enterococcus faecalis Blood cultures 03/02 no growth to date MSK: PT evaluate and treat FEN: Replace electrolytes as clinically indicated Access -Utilize peripheral IV. Central line if indicated Prophylaxis -GI -famotidine -DVT -SCD/heparin drip (switch to Lovenox if still subtherapeutic after discharge) Discharge Planning Stable for discharge to [place] when insurance authorization obtained. If not, [facility] Sascha Matamoros MD Mar 14, 2018 12:32
--- NOTE | 2018-03-14 14:12 | HHI.FF ---
Face to Face Verification Diagnosis: (1) A-fib (2) Sepsis Home Health Nursing Order: Medical education Signs/symptoms of disease process Diabetic education Medication education-adverse effect (lovenox shots, pt/inr q mon and thurs) Nursing assessment with vital signs I have seen patient Russ Mayberry on 03/14/18. My clinical findings support the need for the requested home health care services because: Deconditioned w/ increased weakness I certify that my clinical findings support that this patient is homebound because: Post-op weakness Need for psychosocial assistance Sascha Matamoros MD Mar 14, 2018 14:12
[2018-03-14] MEDS ORDERED: COMMODE 3-IN-11 MIS (14:15)
[2018-03-14] MEDS ORDERED: WALKER WHEELS/F1 MIS (14:15)
[2018-03-14] MEDS: WARFARIN SOD 10 MG TAB PO SCH (16:23)
== END 2018-03-14 17:16 | disposition home health service (06) | DRG 870 ==
LOC: NEPE 20:38 → NEDA 23:36 → HIME 02-25 07:30 → N07B 03-09 17:58
PROVIDERS: ADMIT Internal Medicine; ATTEND Internal Medicine
PROC: 0T768DZ Dilation of Right Ureter with Intraluminal Device, Via Natural or Artificial Opening Endoscopic (ICD-10-PCS; 2018-02-25)
PROC: 0T9B70Z Drainage of Bladder with Drainage Device, Via Natural or Artificial Opening (ICD-10-PCS; 2018-02-25)
PROC: 5A09357 Assistance with Respiratory Ventilation, Less than 24 Consecutive Hours, Continuous Positive Airway Pressure (ICD-10-PCS; 2018-02-25)
PROC: 0TJB8ZZ Inspection of Bladder, Via Natural or Artificial Opening Endoscopic (ICD-10-PCS; principal; 2018-02-25 11:02)
PROC: 5A1955Z Respiratory Ventilation, Greater than 96 Consecutive Hours (ICD-10-PCS; 2018-02-26)
PROC: 30233K1 Transfusion of Nonautologous Frozen Plasma into Peripheral Vein, Percutaneous Approach (ICD-10-PCS; 2018-02-26)
PROC: 0BH17EZ Insertion of Endotracheal Airway into Trachea, Via Natural or Artificial Opening (ICD-10-PCS; 2018-02-26)
DX: A41.81 Sepsis due to Enterococcus (principal); J96.01 Acute respiratory failure with hypoxia; R65.21 Severe sepsis with septic shock; I50.21 Acute systolic (congestive) heart failure; N17.9 Acute kidney failure, unspecified; N13.2 Hydronephrosis with renal and ureteral calculous obstruction; N39.0 Urinary tract infection, site not specified; E11.65 Type 2 diabetes mellitus with hyperglycemia; I48.91 Unspecified atrial fibrillation; R41.82 Altered mental status, unspecified; I11.0 Hypertensive heart disease with heart failure; E78.00 Pure hypercholesterolemia, unspecified; Z96.653 Presence of artificial knee joint, bilateral; R00.0 Tachycardia, unspecified; Z85.51 Personal history of malignant neoplasm of bladder; R79.1 Abnormal coagulation profile; Z79.01 Long term (current) use of anticoagulants; E78.5 Hyperlipidemia, unspecified; E87.6 Hypokalemia; E87.70 Fluid overload, unspecified; E88.09 Other disorders of plasma-protein metabolism, not elsewhere classified; N32.81 Overactive bladder; N40.0 Benign prostatic hyperplasia without lower urinary tract symptoms; R00.1 Bradycardia, unspecified; D64.9 Anemia, unspecified; Z79.84 Long term (current) use of oral hypoglycemic drugs
CPT/HCPCS: 31500; 36430; 36600; 36620; 71045; 71250; 74018; 74176; 76000; 76937; 80048; 80053; 80076; 80202; 81001; 82550; 82552; 82805; 82948; 83605; 83735; 83880; 84100; 84484; 85025; 85027; 85610; 85730; 86900; 86901; 86927; 87040; 87070; 87077; 87086; 87186; 87205; 87641; 87804; 93005; 93306; 94002; 94003; 94150; 94640; 94667; 94668; 94799; 96365; 96368; 96375; C2617; J0131; J0153; J0282; J0295; J0692; J1100; J1120; J1160; J1325; J1644; J1815; J1940; J2250; J2370; J2405; J2710; J3010; J3370; J3430; J3475; J3480; J7030; J7040; J7050; J7060; J7120; J7613; P9017